=== PATIENT | female | born 1960 | race Caucasian/White ===

== ENCOUNTER → 2017-11-19 15:11 | Outpatient (REF) | payer MEDICARE, SELFPAY ==
[2017-11-19 16:22] LABS: ALT 28 U/L (12-78); AST 21 U/L (15-37); Albumin 3.5 g/dL (3.4-5.0); Alkaline Phosphatase 106 U/L (46-116); Anion Gap 11.9 mmol/L (3-11); BUN 7 mg/dL (7-18); C-Reactive Protein 0.31 mg/dL (0.0-0.3); CO2 25.1 mmol/L (21.0-32.0); CREATININE 0.73 mg/dL (0.55-1.02); Calcium 8.4 mg/dL (8.5-10.1); Chloride 100 mmol/L (98-107); Glucose 71 mg/dL (70-100); Potassium 4.6 mmol/L (3.5-5.1); Sodium 137 mmol/L (136-145); Total Protein 6.7 g/dL (6.4-8.2)
[2017-11-19 16:38] LABS: HGB 7.8 g/dL (12.0-15.5); Mean Corpuscular Hemoglobin 23.3 pg (27.0-33.0); Mean Corpuscular Volume 77.6 fL (80-95); Mean Platelet Volume 9.6 fL (8.0-11.0); Platelet Count 631 x1000/uL (130-400); RBC 3.35 m/cumm (4.00-5.20); RBC Distribution Width 19.6 % (11.7-14.6); White Blood Cell Count 9.09 k/cumm (4.4-10.8)
[2017-11-19 16:41] LABS: Bilirubin, Total < 0.1 mg/dL (0.2-1.0)
== END ==
LOC: LBN 15:11
PROVIDERS: PCP Nurse Practitioner; Visit Provider Family Medicine
DX: M86.462 Chronic osteomyelitis with draining sinus, left tibia and fibula (principal); J44.9 Chronic obstructive pulmonary disease, unspecified; F33.9 Major depressive disorder, recurrent, unspecified; G89.29 Other chronic pain; K21.9 Gastro-esophageal reflux disease without esophagitis
CPT/HCPCS: 80053; 85027; 86140

== ENCOUNTER → 2017-11-24 17:06 | Outpatient (REF) | payer MEDICARE, SELFPAY ==
[2017-11-24 17:39] LABS: Mean Corp. HGB Concentration 28.3 g/dL (32.0-36.0); Mean Corpuscular Hemoglobin 22.3 pg (27.0-33.0); Mean Corpuscular Volume 78.7 fL (80-95); Mean Platelet Volume 9.7 fL (8.0-11.0); Platelet Count 447 x1000/uL (130-400); RBC 3.05 m/cumm (4.00-5.20); RBC Distribution Width 19.2 % (11.7-14.6); White Blood Cell Count 6.29 k/cumm (4.4-10.8)
[2017-11-24 17:46] LABS: HGB 6.8 g/dL (12.0-15.5)
[2017-11-24 17:57] LABS: ALT 18 U/L (12-78); AST 21 U/L (15-37); Albumin 3.1 g/dL (3.4-5.0); Alkaline Phosphatase 98 U/L (46-116); BUN 7 mg/dL (7-18); C-Reactive Protein 0.33 mg/dL (0.0-0.3); Calcium 8.2 mg/dL (8.5-10.1); Chloride 103 mmol/L (98-107); Glucose 80 mg/dL (70-100); Potassium 4.3 mmol/L (3.5-5.1); Sodium 139 mmol/L (136-145); Total Protein 5.9 g/dL (6.4-8.2)
[2017-11-24 18:32] LABS: Bilirubin, Total 0.1 mg/dL (0.2-1.0)
== END ==
LOC: LBN 17:06
PROVIDERS: PCP Nurse Practitioner; Visit Provider Family Medicine
DX: I10 Essential (primary) hypertension (principal); F33.9 Major depressive disorder, recurrent, unspecified; M62.81 Muscle weakness (generalized)
CPT/HCPCS: 80053; 85027; 86140

== ENCOUNTER → 2017-11-28 16:40 | Outpatient (REF) | payer MEDICARE, SELFPAY ==
[2017-11-28 18:50] LABS: Iron 127 ug/dL (50-175); Total Iron Binding Capacity 532 ug/dL (250-450); Transferrin Sat 24 % (15-50)
[2017-11-28 19:16] LABS: Ferritin 28 ng/mL (8-388); Folate 19.2 ng/mL (8.6-20.0); Vitamin B12 423 pg/mL (193-986)
[2017-12-01 10:14] LABS: Homocysteine 17.8 umol/L (4.5-12.4)
[2017-12-01 11:06] LABS: Transferrin 413 mg/dL (201-352)
== END ==
LOC: LBN 16:40
PROVIDERS: PCP Nurse Practitioner; Visit Provider Family Medicine
DX: M86.462 Chronic osteomyelitis with draining sinus, left tibia and fibula (principal); S81.809D Unspecified open wound, unspecified lower leg, subsequent encounter; Z79.2 Long term (current) use of antibiotics; Z95.828 Presence of other vascular implants and grafts; J44.9 Chronic obstructive pulmonary disease, unspecified; F33.9 Major depressive disorder, recurrent, unspecified; G89.29 Other chronic pain
CPT/HCPCS: 83090; 82607; 82728; 82746; 83540; 83550; 84466

== ENCOUNTER → 2017-12-01 10:36 | Outpatient (REF) | payer MEDICARE, SELFPAY ==
[2017-12-01 10:50] LABS: HCT 29.9 % (36.0-46.0); HGB 8.4 g/dL (12.0-15.5); Mean Corp. HGB Concentration 28.1 g/dL (32.0-36.0); Mean Corpuscular Hemoglobin 22.5 pg (27.0-33.0); Mean Corpuscular Volume 79.9 fL (80-95); Mean Platelet Volume 9.6 fL (8.0-11.0); Platelet Count 349 x1000/uL (130-400); RBC 3.74 m/cumm (4.00-5.20); RBC Distribution Width 20.7 % (11.7-14.6); White Blood Cell Count 8.38 k/cumm (4.4-10.8)
[2017-12-01 11:13] LABS: ALT 17 U/L (12-78); AST 16 U/L (15-37); Albumin 3.5 g/dL (3.4-5.0); Alkaline Phosphatase 116 U/L (46-116); Anion Gap 5.2 mmol/L (3-11); BUN 7 mg/dL (7-18); Bilirubin, Total 0.2 mg/dL (0.2-1.0); C-Reactive Protein 0.32 mg/dL (0.0-0.3); CO2 28.8 mmol/L (21.0-32.0); CREATININE 0.57 mg/dL (0.55-1.02); Calcium 8.7 mg/dL (8.5-10.1); Chloride 102 mmol/L (98-107); Glucose 81 mg/dL (70-100); Potassium 4.5 mmol/L (3.5-5.1); Sodium 136 mmol/L (136-145); Total Protein 6.5 g/dL (6.4-8.2)
== END ==
LOC: LBN 10:36
PROVIDERS: PCP Nurse Practitioner; Visit Provider Family Medicine
DX: Z48.89 Encounter for other specified surgical aftercare (principal); S81.809D Unspecified open wound, unspecified lower leg, subsequent encounter; F33.9 Major depressive disorder, recurrent, unspecified; G40.89 Other seizures; J44.9 Chronic obstructive pulmonary disease, unspecified
CPT/HCPCS: 80053; 85027; 86140

== ENCOUNTER → 2017-12-12 02:53 | Outpatient (RCR) | payer MEDICARE, SELFPAY ==
[2017-12-02] MEDS: Normal Saline Flush 10 ML SYR IVP (09:36)
[2017-12-03] MEDS: Normal Saline Flush 10 ML SYR IVP (09:36)
[2017-12-04] MEDS: Normal Saline Flush 10 ML SYR IVP (10:01)
[2017-12-05] MEDS: Normal Saline Flush 10 ML SYR IVP (12:55)
[2017-12-06] MEDS: Normal Saline Flush 10 ML SYR IVP (09:32)
[2017-12-07] MEDS: Normal Saline Flush 10 ML SYR IVP (09:38)
[2017-12-08] MEDS: Normal Saline Flush 10 ML SYR IVP (09:51)
[2017-12-08 10:45] LABS: Abs Immature Grans 0.03 k/cumm (0.0-0.09); Absolute Basophil Count 0.15 k/cumm (0.0-0.2); Absolute Eosinophil Count 0.17 k/cumm (0.0-0.7); Absolute Lymphocyte Count 2.55 k/cumm (1.2-3.4); Absolute Monocyte Count 0.62 k/cumm (0.11-0.7); Basophils % 1.7; HCT 31.2 % (36.0-46.0); HGB 9.1 g/dL (12.0-15.5); Immature Grans % 0.3; Lymphocytes % 29.6; Mean Corp. HGB Concentration 29.2 g/dL (32.0-36.0); Mean Corpuscular Hemoglobin 23.6 pg (27.0-33.0); Monocytes % 7.2; Neutrophils % 59.2; Platelet Count 338 x1000/uL (130-400); RBC 3.85 m/cumm (4.00-5.20); White Blood Cell Count 8.62 k/cumm (4.4-10.8)
[2017-12-08 10:54] LABS: ALT 13 U/L (12-78); AST 19 U/L (15-37); Albumin 3.4 g/dL (3.4-5.0); Alkaline Phosphatase 111 U/L (46-116); Anion Gap 4.3 mmol/L (3-11); BUN 9 mg/dL (7-18); Bilirubin, Total 0.2 mg/dL (0.2-1.0); C-Reactive Protein < 0.05 mg/dL (0.0-0.3); CO2 28.7 mmol/L (21.0-32.0); CREATININE 0.63 mg/dL (0.55-1.02); Calcium 8.5 mg/dL (8.5-10.1); Chloride 101 mmol/L (98-107); Glucose 89 mg/dL (70-100); Potassium 4.7 mmol/L (3.5-5.1); Sodium 134 mmol/L (136-145); Total Protein 6.8 g/dL (6.4-8.2)
[2017-12-09] MEDS: Normal Saline Flush 10 ML SYR IVP (09:56)
[2017-12-10] MEDS: Normal Saline Flush 10 ML SYR IVP (10:06)
[2017-12-11] MEDS: Normal Saline Flush 10 ML SYR IVP (08:48)
[2017-12-12] MEDS: Normal Saline Flush 10 ML SYR IVP (09:57)
== END ==
LOC: INF 12-02 02:15
PROVIDERS: Internal Medicine; PCP Nurse Practitioner; Visit Provider Nurse Practitioner Family
DX: M86.462 Chronic osteomyelitis with draining sinus, left tibia and fibula (principal); Z45.2 Encounter for adjustment and management of vascular access device
CPT/HCPCS: 36592; 96365 ×10; 80053; 85025; 86140

== ENCOUNTER → 2017-12-12 15:09 | Outpatient (REF) | payer MEDICARE, SELFPAY ==
[2017-12-12 21:51] LABS: Abs Immature Grans 0.03 k/cumm (0.0-0.09); Absolute Basophil Count 0.11 k/cumm (0.0-0.2); Absolute Lymphocyte Count 2.57 k/cumm (1.2-3.4); Absolute Monocyte Count 0.54 k/cumm (0.11-0.7); Absolute Neutrophil Count 5.26 k/cumm (1.2-6.7); Basophils % 1.3; Eosinophils % 2.3; HCT 31.7 % (36.0-46.0); HGB 9.3 g/dL (12.0-15.5); Immature Grans % 0.3; Lymphocytes % 29.5; Mean Corp. HGB Concentration 29.3 g/dL (32.0-36.0); Mean Corpuscular Hemoglobin 23.1 pg (27.0-33.0); Mean Corpuscular Volume 78.9 fL (80-95); Monocytes % 6.2; Neutrophils % 60.4; Platelet Count 503 x1000/uL (130-400); RBC 4.02 m/cumm (4.00-5.20); RBC Distribution Width 21.7 % (11.7-14.6); White Blood Cell Count 8.71 k/cumm (4.4-10.8)
[2017-12-12 22:06] LABS: Iron 10 ug/dL (50-175); Total Iron Binding Capacity 541 ug/dL (250-450); Transferrin Sat 2 % (15-50)
[2017-12-12 22:15] LABS: ALT 18 U/L (12-78); AST 23 U/L (15-37); Albumin 3.9 g/dL (3.4-5.0); Alkaline Phosphatase 113 U/L (46-116); Anion Gap 9.5 mmol/L (3-11); BUN 9 mg/dL (7-18); Bilirubin, Total 0.2 mg/dL (0.2-1.0); CO2 27.5 mmol/L (21.0-32.0); CREATININE 0.62 mg/dL (0.55-1.02); Calcium 9.5 mg/dL (8.5-10.1); Chloride 105 mmol/L (98-107); Ferritin 19 ng/mL (8-388); Glucose 94 mg/dL (70-100); Potassium 4.3 mmol/L (3.5-5.1); Sodium 142 mmol/L (136-145); Total Protein 6.9 g/dL (6.4-8.2)
[2017-12-12 22:18] LABS: Anisocytosis 2+; Diff Comment RBC Morph Reviewed; Hypochromasia 1+
== END ==
LOC: NCHCN 15:09
PROVIDERS: PCP Nurse Practitioner; Visit Provider Nurse Practitioner
DX: D64.9 Anemia, unspecified (principal); M86.462 Chronic osteomyelitis with draining sinus, left tibia and fibula
CPT/HCPCS: 80053; 82728; 83540; 83550; 85025

== ENCOUNTER 2017-12-16 09:42 | Emergency (ER) | payer OTHER, SELFPAY ==
[2017-12-16] VITALS (23 sets, daily range): BP systolic 101–125; BP diastolic 61–82; PULSE 74–85; RESP 12–24; TEMP 37; O2SAT 94–96
--- NOTE | 2017-12-16 09:49 | DI.CT_ITS ---
SYMPTOM/DIAGNOSIS: MENTAL STATUS CHANGE CRANIAL CT (WITHOUT CONTRAST): 12/16/[address] was performed. The ventricular system is normal in appearance. There is no evidence of an intracranial mass lesion. There is no evidence of a subdural or epidural hematoma. No focal areas of decreased attenuation are seen. CONCLUSION: Normal noncontrast Cranial CT.
--- NOTE | 2017-12-16 09:52 | W.ED.GENAD ---
Discharge Plan Discharge Details Chief Complaint: AMS/LOC Reason For Visit: CALEX Primary Care Provider: Angelique Lutz ED Provider: Ney Carcamo Home Meds and New Rx's Prescriptions: No Action thiamine mononitrate (vit B1) 100 MG tablet 100 mg PO BID Qty: 100 RF: 3 naloxone [Narcan] 4 MG spray,non-aerosol 4 mg NS PRN Qty: 2 RF: 2 hydroxyzine HCl 50 MG tablet 50 mg PO hs prn RF: 0 tramadol 50 MG tablet 50 mg PO TID RF: 0 docusate sodium 100 MG capsule 200 mg PO BID RF: 0 hydroxyzine HCl 25 MG tablet 25 mg PO BID PRNRF: 0 meloxicam 15 MG tablet 15 mg PO DAILY Qty: 90 RF: 3 pantoprazole 40 MG tablet,delayed release (DR/EC) 40 mg PO DAILY Qty: 90 RF: 3 fluvoxamine 100 MG tablet 100 mg PO HS PRNRF: 0 amitriptyline 100 MG tablet 50 mg PO BID RF: 0 zolpidem [Ambien] 5 MG tablet 5 mg PO HS Qty: 30 RF: 0 gabapentin 300 MG capsule 300 mg PO BID Qty: 90 RF: 0 oxycodone 5 MG tablet 5 mg PO Q8H PRN PRNQty: 21 RF: 0 lamotrigine [Lamictal] 25 MG tablet 100 mg PO BID RF: 0 multivitamin [Multiple Vitamins] 1 TAB tablet 1 tab PO DAILY RF: 0 polyethylene glycol 3350 17 GM powder in packet 17 gm PO BID PRN PRN (Reason: Constipation) RF: 0 aspirin 81 MG tablet,delayed release (DR/EC) 81 mg PO BID RF: 0 acetaminophen [Mapap Extra Strength] 500 MG tablet 500 mg PO Q4H PRN PRNRF: 0 Medical Decision Making [facility] Narrative Medical decision making narrative: 57-year-old female presents from home with altered mental status. 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 She is being treated for MSSA with daily ceftriaxone 2 g in the infusion suite with treatment dates of treatment November 07 through December 19. Screening EKG reveals normal sinus rhythm, rate of 80, narrow QRS, no ST segment elevation. CT scan of the head unremarkable. Chest x-ray without acute focal findings. Laboratory diagnostics reveal white blood cell count of 8, hematocrit 28 with chronic history of anemia, platelets 402. Sodium 135, potassium 4.0, troponin negative. Urinalysis with positive leuk esterase, otherwise unremarkable. Patient given ceftriaxone daily dose in the emergency dept as per her ordered daily dose. Over 2 hours time, patient slowly awakened, states she felt much improved. She subsequently ate at lunchtime meal. Patient does not appear septic, no new infection, no evidence of stroke or trauma. She does have pre-standing chronic anemia and will follow up with primary care for this. She is desirous of returning home. Given that she is improved, do not find that she requires admission. Medical Records Medical records reviewed: Yes I reviewed the patient's medical records. Lab Data Lab results reviewed: Yes I reviewed the patient's lab results. ECG Data Attestation: I personally reviewed and interpreted this ECG (s) as follows: Interpretation: Normal sinus rhythm, rate 80s, no ST segment HPI - General Adult General Mode of arrival: EMS. Date/Time Provider Initiated Documentation: 12/16/17 09:49. Limitations to Documentation: altered mental status. Information obtained by: patient and EMS. History of Present Illness described as moderate, Quality is described as other (Unable to stay), Patient started experiencing this unknown HPI Narrative: Altered mental status: This is a 57-year-old female who presents from home via EMS. She was reportedly found down on her floor at home by home health visit this morning, with last known normal at least 12 hours prior. She is essentially noncontributory to the history but will awake to voice and follow commands. She has been taking antibiotics with left arm PICC line for a left lower extremity infection Related Data Home Medications Medication Instructions Recorded Confirmed lamotrigine [Lamictal] 100 mg PO BID 01/04/17 07/13/17 docusate sodium 200 mg PO BID tab-cap 04/21/17 07/13/17 hydroxyzine HCl 25 mg PO BID PRN 04/21/17 07/13/17 hydroxyzine HCl 50 mg PO hs prn 04/21/17 07/13/17 tramadol 50 mg PO TID tab-cap 04/21/17 07/13/17 amitriptyline 50 mg PO BID 05/20/17 07/13/17 fluvoxamine 100 mg PO HS PRN tab-cap 05/20/17 07/13/17 Previous Rx's Medication Instructions Recorded acetaminophen [Mapap Extra 500 mg PO Q4H PRN PRN tab 07/17/17 Strength] aspirin 81 mg PO BID tabec 07/17/17 multivitamin [Multiple Vitamins] 1 tab PO DAILY tab 07/17/17 polyethylene glycol 3350 17 gm PO BID PRN PRN packet 07/17/17 Allergies Allergy/AdvReac Type Severity Reaction Status Date / Time latex Allergy Intermediate burning Unverified 08/29/17 09:29 Penicillins Allergy Intermediate Hives Unverified 08/29/17 09:29 Review of Systems Review of Systems Unobtainable due to mental status [facility] Family History Mother Alcohol abuse Medical History Alcohol abuse Anxiety and depression COPD (chronic obstructive pulmonary disease) Chronic pain GERD (gastroesophageal reflux disease) Hyperlipidemia Hypertension Social History Smoking/Tobacco Use Status: Former Tobacco Use Surgical History Debridement, Soft Tissue (06/10/15) Fracture, Open Treatment (12/03/16) OPEN REDUCTION INTERNAL FIXATION LEFT DISTAL TIBIA (01/02/16) 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) flap coverage (11/07/17) Exam Const General: disheveled and intoxicated appearing Orientation: alert, oriented to place and confused Limitations: altered mental status [facility] Head: normal to inspection and normocephalic Ears: hearing grossly normal bilaterally and external ears normal Eyes General: appearance normal, both eyes and all related structures Eyelids: eyelids normal Pupils: PERRL EOM: EOM intact bilaterally Neck Neck: normal visual inspection, full ROM, no lymphadenopathy and no meningeal signs Chest Chest: normal inspection of the chest and normal palpation of entire chest wall Resp Effort & Inspection: normal respiratory effort Auscultation: clear to auscultation bilaterally Cardio Rate: regular rate Rhythm: regular rhythm GI Palpation: soft Auscultation: normal bowel sounds Back/Spine/Pelvis Back: no CVA tenderness and No back tenderness Thoracic/Lumbar Spine: thoracic and lumbar spine normal to inspection Skin Other: Left lower leg anterior ankle with healing Neuro General: alert, moves all extremities and confused Cranial Nerves: PERRL and accommodation normal Cognition: abnormal cognition Speech: abnormal speech slurred Sensory Exam: no sensory deficits noted Extrem General: normal capillary refill Left lower extremity: abnormal to inspection (Left lower leg, anterior ankle with healing surgical wound, patient moves all 4 extremities, unable to hold legs up against gravity) Psych Appearance: disheveled Speech and Movement: slurred speech Affect: blunted
--- NOTE | 2017-12-16 10:05 | ED.GENADUL_ITS ---
Discharge Plan Discharge Details Chief Complaint: AMS/LOC Reason For Visit: [facility]EX Primary Care Provider: Angelique Lutz ED Provider: Ney Carcamo Home Meds and New Rx's Prescriptions: No Action thiamine mononitrate (vit B1) 100 MG tablet 100 mg PO BID Qty: 100 RF: 3 naloxone [Narcan] 4 MG spray,non-aerosol 4 mg NS PRN Qty: 2 RF: 2 hydroxyzine HCl 50 MG tablet 50 mg PO hs prn RF: 0 tramadol 50 MG tablet 50 mg PO TID RF: 0 docusate sodium 100 MG capsule 200 mg PO BID RF: 0 hydroxyzine HCl 25 MG tablet 25 mg PO BID PRNRF: 0 meloxicam 15 MG tablet 15 mg PO DAILY Qty: 90 RF: 3 pantoprazole 40 MG tablet,delayed release (DR/EC) 40 mg PO DAILY Qty: 90 RF: 3 fluvoxamine 100 MG tablet 100 mg PO HS PRNRF: 0 amitriptyline 100 MG tablet 50 mg PO BID RF: 0 zolpidem [Ambien] 5 MG tablet 5 mg PO HS Qty: 30 RF: 0 gabapentin 300 MG capsule 300 mg PO BID Qty: 90 RF: 0 oxycodone 5 MG tablet 5 mg PO Q8H PRN PRNQty: 21 RF: 0 lamotrigine [Lamictal] 25 MG tablet 100 mg PO BID RF: 0 multivitamin [Multiple Vitamins] 1 TAB tablet 1 tab PO DAILY RF: 0 polyethylene glycol 3350 17 GM powder in packet 17 gm PO BID PRN PRN (Reason: Constipation) RF: 0 aspirin 81 MG tablet,delayed release (DR/EC) 81 mg PO BID RF: 0 acetaminophen [Mapap Extra Strength] 500 MG tablet 500 mg PO Q4H PRN PRNRF: 0 Medical Decision Making [facility] Narrative Medical decision making narrative: 57-year-old female presents from home with altered mental status. 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 She is being treated for MSSA with daily ceftriaxone 2 g in the infusion suite with treatment dates of treatment November 07 through December 19. Screening EKG reveals normal sinus rhythm, rate of 80, narrow QRS, no ST segment elevation. CT scan of the head unremarkable. Chest x-ray without acute focal findings. Laboratory diagnostics reveal white blood cell count of 8, hematocrit 28 with chronic history of anemia, platelets 402. Sodium 135, potassium 4.0, troponin negative. Urinalysis with positive leuk esterase, otherwise unremarkable. Patient given ceftriaxone daily dose in the emergency dept as per her ordered daily dose. Over 2 hours time, patient slowly awakened, states she felt much improved. She subsequently ate at lunchtime meal. Patient does not appear septic, no new infection, no evidence of stroke or trauma. She does have pre-standing chronic anemia and will follow up with primary care for this. She is desirous of returning home. Given that she is improved, do not find that she requires admission. Medical Records Medical records reviewed: Yes I reviewed the patient's medical records. Lab Data Lab results reviewed: Yes I reviewed the patient's lab results. ECG Data Attestation: I personally reviewed and interpreted this ECG (s) as follows: Interpretation: Normal sinus rhythm, rate 80s, no ST segment HPI - General Adult General Mode of arrival: EMS . Date/Time Provider Initiated Documentation: 12/16/17 09:49 . Limitations to Documentation: altered mental status . Information obtained by: patient and EMS . History of Present Illness described as moderate, Quality is described as other (Unable to stay), Patient started experiencing this unknown HPI Narrative: Altered mental status: This is a 57-year-old female who presents from home via EMS. She was reportedly found down on her floor at home by home health visit this morning, with last known normal at least 12 hours prior. She is essentially noncontributory to the history but will awake to voice and follow commands. She has been taking antibiotics with left arm PICC line for a left lower extremity infection Related Data Home Medications Medication Instructions Recorded Confirmed lamotrigine [Lamictal] 100 mg PO BID 01/04/17 07/13/17 docusate sodium 200 mg PO BID tab-cap 04/21/17 07/13/17 hydroxyzine HCl 25 mg PO BID PRN 04/21/17 07/13/17 hydroxyzine HCl 50 mg PO hs prn 04/21/17 07/13/17 tramadol 50 mg PO TID tab-cap 04/21/17 07/13/17 amitriptyline 50 mg PO BID 05/20/17 07/13/17 fluvoxamine 100 mg PO HS PRN tab-cap 05/20/17 07/13/17 Previous Rx's Medication Instructions Recorded acetaminophen [Mapap Extra 500 mg PO Q4H PRN PRN tab 07/17/17 Strength] aspirin 81 mg PO BID tabec 07/17/17 multivitamin [Multiple Vitamins] 1 tab PO DAILY tab 07/17/17 polyethylene glycol 3350 17 gm PO BID PRN PRN packet 07/17/17 Allergies Allergy/AdvReac Type Severity Reaction Status Date / Time latex Allergy Intermediate burning Unverified 08/29/17 09:29 Penicillins Allergy Intermediate Hives Unverified 08/29/17 09:29 Review of Systems Review of Systems Unobtainable due to mental status [facility] Family History Mother Alcohol abuse Medical History Alcohol abuse Anxiety and depression COPD (chronic obstructive pulmonary disease) Chronic pain GERD (gastroesophageal reflux disease) Hyperlipidemia Hypertension Social History Smoking/Tobacco Use Status: Former Tobacco Use Surgical History Debridement, Soft Tissue (06/10/15) Fracture, Open Treatment (12/03/16) OPEN REDUCTION INTERNAL FIXATION LEFT DISTAL TIBIA (01/02/16) 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) flap coverage (11/07/17) Exam Const General: disheveled and intoxicated appearing Orientation: alert, oriented to place and confused Limitations: altered mental status [facility] Head: normal to inspection and normocephalic Ears: hearing grossly normal bilaterally and external ears normal Eyes General: appearance normal, both eyes and all related structures Eyelids: eyelids normal Pupils: PERRL EOM: EOM intact bilaterally Neck Neck: normal visual inspection, full ROM, no lymphadenopathy and no meningeal signs Chest Chest: normal inspection of the chest and normal palpation of entire chest wall Resp Effort & Inspection: normal respiratory effort Auscultation: clear to auscultation bilaterally Cardio Rate: regular rate Rhythm: regular rhythm GI Palpation: soft Auscultation: normal bowel sounds Back/Spine/Pelvis Back: no CVA tenderness and No back tenderness Thoracic/Lumbar Spine: thoracic and lumbar spine normal to inspection Skin Other: Left lower leg anterior ankle with healing Neuro General: alert, moves all extremities and confused Cranial Nerves: PERRL and accommodation normal Cognition: abnormal cognition Speech: abnormal speech slurred Sensory Exam: no sensory deficits noted Extrem General: normal capillary refill Left lower extremity: abnormal to inspection (Left lower leg, anterior ankle with healing surgical wound, patient moves all 4 extremities, unable to hold legs up against gravity) Psych Appearance: disheveled Speech and Movement: slurred speech Affect: blunted
[2017-12-16 10:15] LABS: Abs Immature Grans 0.02 k/cumm (0.0-0.09); Absolute Basophil Count 0.06 k/cumm (0.0-0.2); Absolute Eosinophil Count 0.18 k/cumm (0.0-0.7); Absolute Lymphocyte Count 1.63 k/cumm (1.2-3.4); Absolute Monocyte Count 0.59 k/cumm (0.11-0.7); Absolute Neutrophil Count 6.18 k/cumm (1.2-6.7); Basophils % 0.7; Eosinophils % 2.1; HCT 28.2 % (36.0-46.0); HGB 8.2 g/dL (12.0-15.5); Immature Grans % 0.2; Lymphocytes % 18.8; Mean Corp. HGB Concentration 29.1 g/dL (32.0-36.0); Mean Platelet Volume 9.1 fL (8.0-11.0); Monocytes % 6.8; Neutrophils % 71.4; Platelet Count 402 x1000/uL (130-400); RBC 3.57 m/cumm (4.00-5.20); RBC Distribution Width 20.7 % (11.7-14.6); White Blood Cell Count 8.66 k/cumm (4.4-10.8)
[2017-12-16 10:21] LABS: Ammonia 20 umol/L (11-32)
--- NOTE | 2017-12-16 10:32 | DI.RAD_ITS ---
SYMPTOM/DIAGNOSIS: MENTAL STATUS CHANGE AP AND LATERAL CHEST: 12/16/17 The heart is at the upper limits of normal in size. There is a left PICC line which lies with its tip in the superior vena cava. There may be small bilateral pleural effusions. There is slight prominence of pulmonary interstitial markings which is nonspecific. No focal consolidation seen. CONCLUSION: Question slight prominence of pulmonary interstitial markings, mild CHF not excluded.
[2017-12-16 10:33] LABS: ALT 15 U/L (12-78); AST 18 U/L (15-37); Albumin 3.4 g/dL (3.4-5.0); Alkaline Phosphatase 105 U/L (46-116); Anion Gap 4.3 mmol/L (3-11); BUN 9 mg/dL (7-18); Bilirubin, Direct 0.05 mg/dL (0.00-0.20); Bilirubin, Total 0.2 mg/dL (0.2-1.0); CO2 28.7 mmol/L (21.0-32.0); CREATININE 0.63 mg/dL (0.55-1.02); Calcium 8.7 mg/dL (8.5-10.1); Chloride 102 mmol/L (98-107); Diff Comment RBC Morph Reviewed; Glucose 90 mg/dL (70-100); Magnesium 1.7 mg/dL (1.8-2.4); Sodium 135 mmol/L (136-145); TSH 1.83 uIU/mL (0.358-3.74); Total Protein 6.4 g/dL (6.4-8.2); Troponin I < 0.02 ng/mL (0.00-0.06)
[2017-12-16 10:34] LABS: Anisocytosis 3+; Basophilic Stippling Present
[2017-12-16 10:35] LABS: Hypochromasia 2+; Poikilocytes 1+; Polychromasia Present
[2017-12-16 11:11] LABS: Bilirubin Negative (Negative); Blood Negative (Negative); Clarity Clear; Glucose Negative (Negative); Ketones Negative (Negative); Leukocyte Esterase Small (Negative); Nitrite Negative (Negative); Urobilinogen 0.2 EU/dL (Up TO 0.2)
[2017-12-16] MEDS: Normal Saline 1,000 ML 125 ML IV (11:17)
[2017-12-16 11:23] LABS: Bacteria Few HPF (Negative); C & S Indicated? No/Sq. Contamination; Casts Negative LPF (Negative); Crystals Negative HPF (Negative); Epithelial Cells Moderate HPF (Negative); Mucus Negative (Negative); Other Cells Moderate Renal (Negative); RBC Negative (0-2)
[2017-12-16 11:25] LABS: *AMPHETAMINES SCREEN URINE Negative (Negative); *BARBITURATES SCREEN URINE Negative (Negative); *BENZODIAZEPINES SCREEN URINE Negative (Negative); Cannabinoids THC Negative (Negative); Cocaine Screen,Urine Negative (Negative); METHADONE URINE SCREEN Negative (Negative); OPIATES URINE SCREEN Negative (Negative)
[2017-12-16 11:26] LABS: Tricyclic Antidepressants POSITIVE (Negative)
[2017-12-16 12:10] LABS: ETHANOL BLOOD < 3.0 mg/dL (<3)
--- NOTE | 2017-12-16 14:52 | PDOC.ERCMPRO ---
Care Management Progress Note 12/16-Joann needs transportation home. Called [facility] and spoke with Gabriela. Gabriela will schedule transportation for Joann to be picked up at the emergency department waiting area and transferred home. Kristy MICHELLE is aware of the above.
[2017-12-18 17:42] LABS: C-Reactive Protein 0.23 mg/dL (0.0-0.3)
== END 2017-12-16 15:00 | disposition home or self-care (01) ==
PROVIDERS: Internal Medicine Infectious Disease; Emergency Provider Emergency Medicine; PCP Nurse Practitioner
DX: R41.82 Altered mental status, unspecified (principal); R47.81 Slurred speech; I10 Essential (primary) hypertension; J44.9 Chronic obstructive pulmonary disease, unspecified; Z87.891 Personal history of nicotine dependence; Z95.9 Presence of cardiac and vascular implant and graft, unspecified
CPT/HCPCS: 36415; 36416; 80053; 80076; 80307; 82962; 93005; 96361; 96374; 99285; 70450; 71046; 80320; 81003; 81015; 82140; 83735; 84443; 84484; 85025; 86140; 93010

== ENCOUNTER 2017-12-19 10:00 | Outpatient (RCR) | payer OTHER, SELFPAY ==
[2017-12-14] MEDS: Normal Saline Flush 10 ML SYR IVP (09:37)
[2017-12-15] MEDS: Normal Saline Flush 10 ML SYR IVP (09:36)
[2017-12-17] MEDS: Normal Saline Flush 10 ML SYR IVP (10:17)
[2017-12-18] MEDS: Normal Saline Flush 10 ML SYR IVP (09:58)
[2017-12-19] MEDS: Normal Saline Flush 10 ML SYR IVP (10:13)
[2017-12-19] MEDS: Bacitracin 1 PACKET (10:45)
== END 2018-01-11 23:59 | disposition home or self-care (01) ==
LOC: INF 10:00
PROVIDERS: PCP Nurse Practitioner; Visit Provider Nurse Practitioner Family
DX: M86.462 Chronic osteomyelitis with draining sinus, left tibia and fibula (principal); Z45.2 Encounter for adjustment and management of vascular access device
CPT/HCPCS: 96365

== ENCOUNTER 2018-01-20 00:50 | Outpatient (CLI) | payer OTHER, SELFPAY ==
--- NOTE | 2018-01-20 11:06 | DI.MAMMO_ITS ---
SYMPTOM/DIAGNOSIS: SCREENING, Z12.31 MAMMOGRAMS: Mammograms were interpreted according to the usual protocol including computer analysis with CAD system, tomosynthesis and C view imaging. Comparison is made with prior examinations. Breast density, B. No masses or microcalcifications are seen. There is nothing to suggest malignancy. IMPRESSION: Negative mammogram. Routine screening is recommended. Category 1. MQSA ASSESSMENT OF FINDINGS: Negative. Category 1. Patient will receive a letter notifying them of these results. BI-RADS category B. There are scattered areas of fibroglandular density.
== END 2018-01-20 01:10 ==
PROVIDERS: Visit Provider Nurse Practitioner
DX: Z12.31 Encounter for screening mammogram for malignant neoplasm of breast (principal)
CPT/HCPCS: 77063; 77067

== ENCOUNTER 2018-05-27 09:23 | Emergency (ER) | payer OTHER, SELFPAY ==
--- NOTE | 2018-05-27 10:09 | NUR.NOTE ---
pt has a history of COPD does not use O2 at home. pt is hear because of SOB following cold
[2018-05-27 10:11] VITALS: BP 143/92; PULSE 75; RESP 18; TEMP 37; O2SAT 96
--- NOTE | 2018-05-27 10:23 | ED.GENADUL_ITS ---
Discharge Plan Disposition Patient Disposition: HOME Condition: Stable Discharge Details Chief Complaint: SOB Clinical Impression: Acute exacerbation of COPD with asthma Primary Care Provider: Jumana Gay ED Provider: Trent Linda Home Meds and New Rx's Prescriptions: New prednisone 20 mg tablet 60 mg PO DAILY 4 Days Qty: 12 RF: 0 doxycycline hyclate 100 mg tablet 100 mg PO BID Qty: 14 RF: 0 Continued thiamine mononitrate (vit B1) 100 MG tablet 100 mg PO BID Qty: 100 RF: 3 Narcan 4 MG spray,non-aerosol 4 mg NS PRN Qty: 2 RF: 2 hydroxyzine HCl 50 MG tablet 50 mg PO hs prn RF: 0 tramadol 50 MG tablet 50 mg PO TID RF: 0 docusate sodium 100 MG capsule 200 mg PO BID RF: 0 hydroxyzine HCl 25 MG tablet 25 mg PO BID PRNRF: 0 meloxicam 15 MG tablet 15 mg PO DAILY Qty: 90 RF: 3 pantoprazole 40 MG tablet,delayed release (DR/EC) 40 mg PO DAILY Qty: 90 RF: 3 fluvoxamine 100 MG tablet 100 mg PO HS PRNRF: 0 amitriptyline 100 MG tablet 50 mg PO BID RF: 0 zolpidem [Ambien] 5 MG tablet 5 mg PO HS Qty: 30 RF: 0 gabapentin 300 MG capsule 300 mg PO BID Qty: 90 RF: 0 oxycodone 5 MG tablet 5 mg PO Q8H PRN PRNQty: 21 RF: 0 lamotrigine [Lamictal] 25 MG tablet 100 mg PO BID RF: 0 multivitamin [Multiple Vitamins] 1 TAB tablet 1 tab PO DAILY RF: 0 polyethylene glycol 3350 17 GM powder in packet 17 gm PO BID PRN PRN (Reason: Constipation) RF: 0 aspirin 81 MG tablet,delayed release (DR/EC) 81 mg PO BID RF: 0 acetaminophen [Mapap Extra Strength] 500 MG tablet 500 mg PO Q4H PRN PRNRF: 0 Discharge Instructions Instructions: COPD (Chronic Obstructive Pulmonary Disease) (ED) Additional Instructions: follow up with your primary care provider within a week if you feel you are having worsening symptoms despite the medications and inhalers return to the emergency department for reevaluation Medical Decision Making 57 yo female with hx of copd, smoker, was on suboxone for prior chronic opiate use from multiple prior surgeries comes in with shortness of breath and increased cough for a few days. Denies chest pain or fevers. HAs wheezing bilaterally at the bases, speaking in full setnences, no leg edema or calf pain. I suspect copd exacerbation, will treat with prednisone, duoneb and steroids and given increased cough will start abx. No evidence of dvt and physical exam findings more consistent with copd so doubt PE at this time. NO chest pain or pressure to suggest acs. No fever and appears well so doubt pna and do not feel xray indicated. She states she has been off suboxone for a few days due to insurance issues and was trying to figure out how to obtain this, I offered care management to help her but also discussed just coming off suboxone given she is already a few days into this and she is choosing to try and come off suboxone at this time pt remains stable, has no complaints now and is speaking in full setnecnes and has clear lungs, will d/c with abx and steroids, advised f/u with pcp and return precautions given Differential Diagnosis copd, pna, uri HPI General Mode of arrival: ambulatory . Date/Time Provider Initiated Documentation: 05/27/18 09:33 . Limitations to Documentation: no limitations . Information obtained by: patient . History of Present Illness 57 year old F presents to the emergency department with the chief complaint of shortness of breath and cough, described as moderate, with intensity rated at 4. Patient started experiencing this day(s) (3) and it has been constant. No relieving factors improve symptom(s), No exacerbating factors reported . Related Data Home Medications Medication Instructions Recorded Confirmed thiamine mononitrate (vit B1) 100 mg PO BID #100 tab 04/02/16 05/27/18 Narcan 4 mg NS PRN #2 spray 10/10/16 05/27/18 lamotrigine [Lamictal] 100 mg PO BID 01/04/17 05/27/18 docusate sodium 200 mg PO BID tab-cap 04/21/17 05/27/18 hydroxyzine HCl 25 mg PO BID PRN 04/21/17 05/27/18 hydroxyzine HCl 50 mg PO hs prn 04/21/17 05/27/18 meloxicam 15 mg PO DAILY #90 tab-cap 04/21/17 05/27/18 pantoprazole 40 mg PO DAILY #90 tab-cap 04/21/17 05/27/18 tramadol 50 mg PO TID tab-cap 04/21/17 05/27/18 amitriptyline 50 mg PO BID 05/20/17 05/27/18 fluvoxamine 100 mg PO HS PRN tab-cap 05/20/17 05/27/18 acetaminophen [Mapap Extra 500 mg PO Q4H PRN PRN tab 07/17/17 05/27/18 Strength] aspirin 81 mg PO BID tabec 07/17/17 05/27/18 multivitamin [Multiple Vitamins] 1 tab PO DAILY tab 07/17/17 05/27/18 polyethylene glycol 3350 17 gm PO BID PRN PRN packet 07/17/17 05/27/18 zolpidem [Ambien] 5 mg PO HS #30 tab-cap 07/19/17 05/27/18 gabapentin 300 mg PO BID #90 cap 08/29/17 05/27/18 oxycodone 5 mg PO Q8H PRN PRN #21 tab 11/03/17 05/27/18 doxycycline hyclate 100 mg PO BID #14 tab 05/27/18 prednisone 60 mg PO DAILY 4 Days #12 tab 05/27/18 Previous Rx's Medication Instructions Recorded meloxicam 15 mg PO DAILY #90 tab-cap 04/21/17 pantoprazole 40 mg PO DAILY #90 tab-cap 04/21/17 acetaminophen [Mapap Extra 500 mg PO Q4H PRN PRN tab 07/17/17 Strength] aspirin 81 mg PO BID tabec 07/17/17 multivitamin [Multiple Vitamins] 1 tab PO DAILY tab 07/17/17 polyethylene glycol 3350 17 gm PO BID PRN PRN packet 07/17/17 zolpidem [Ambien] 5 mg PO HS #30 tab-cap 07/19/17 gabapentin 300 mg PO BID #90 cap 08/29/17 doxycycline hyclate 100 mg PO BID #14 tab 05/27/18 prednisone 60 mg PO DAILY 4 Days #12 tab 05/27/18 Allergies Allergy/AdvReac Type Severity Reaction Status Date / Time latex Allergy Intermediate burning Unverified 05/27/18 10:13 Penicillins Allergy Intermediate Hives Unverified 05/27/18 10:13 General Stated Complaint: SOB JUAN DANIEL: 4 Review of Systems Review of Systems All systems reviewed & are unremarkable except as noted in HPI and below Constitutional Denies fever(s) and Denies weakness ENT Denies change in voice Cardiovascular Denies chest pain Gastrointestinal Denies abdominal pain, Denies nausea and Denies vomiting Genitourinary Denies dysuria Integumentary/Breasts Denies rash Neurologic Denies weakness [facility] Medical History Alcohol abuse Anxiety and depression COPD (chronic obstructive pulmonary disease) Chronic pain GERD (gastroesophageal reflux disease) Hyperlipidemia Hypertension Surgical History Debridement, Soft Tissue (06/10/15) Fracture, Open Treatment (12/03/16) OPEN REDUCTION INTERNAL FIXATION LEFT DISTAL TIBIA (01/02/16) 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) flap coverage (11/07/17) Social History Smoking and Tabacco status: Current every day Exam Const General: no acute distress Orientation: alert [facility] Head: normal to inspection Ears: external ears normal General nose exam: external nose normal Mouth: moist mucous membranes Eyes General: appearance normal, both eyes and all related structures Neck Neck: normal visual inspection Resp Effort & Inspection: normal respiratory effort and able to speak in complete sentences Cardio Rate: regular rate Skin General skin exam: no rashes or lesions noted Neuro General: alert and oriented x3 Extrem General: normal to inspection Psych Mental Status: mental status grossly normal Course Vital Signs Temperature 37.0 C 05/27/18 10:11 Pulse 75 05/27/18 10:11 Respiratory Rate 18 05/27/18 10:11 Blood Pressure 143/92 H 05/27/18 10:11 Pulse Oximetry 96 05/27/18 10:11 Temperature 37.0 C 05/27/18 10:11 Temperature Source Skin 05/27/18 10:11 Pulse 75 05/27/18 10:11 Respiratory Rate 18 05/27/18 10:11 Blood Pressure 143/92 H 05/27/18 10:11 Blood Pressure Position Sitting 05/27/18 10:11 Pulse Oximetry 96 05/27/18 10:11 Oxygen Delivery Method Room Air 05/27/18 10:11 Oxygen Flow Rate 0 05/27/18 10:11 Pain Level 0 05/27/18 10:11
[2018-05-27] MEDS: Albuterol/Ipratropium 3 ML UPD VIAL UPD (11:03)
[2018-05-27] MEDS: Doxycycline Hyclate 100 MG CAP PO (11:03)
[2018-05-27] MEDS: Ketorolac 30 MG/ML VIAL IM (11:03)
[2018-05-27 11:04] VITALS: RESP 16
[2018-05-27] MEDS: predniSONE 20 MG TAB 60 MG PO (11:04)
[2018-05-27 11:46] VITALS: BP 143/92; PULSE 75; RESP 16; TEMP 37; O2SAT 96
== END 2018-05-27 11:24 | disposition home or self-care (01) ==
LOC: ER 11:03
PROVIDERS: Emergency Provider Emergency Medicine; PCP Family Medicine
DX: J44.1 Chronic obstructive pulmonary disease with (acute) exacerbation (principal); F17.210 Nicotine dependence, cigarettes, uncomplicated
CPT/HCPCS: 94640; 96372; 99284; J1885; J7512; J7620

== ENCOUNTER 2018-06-25 03:25 | Emergency (ER) | payer OTHER, SELFPAY ==
[2018-06-25 03:25] VITALS: BP 146/86; PULSE 93; RESP 22; TEMP 37.1; O2SAT 94
--- NOTE | 2018-06-25 03:37 | ED.GENADUL_ITS ---
Discharge Plan Disposition Patient Disposition: HOME Condition: Stable Discharge Details Chief Complaint: ETOHWithdr Clinical Impression: Alcohol abuse Reason For Visit: PRETTY Primary Care Provider: Jumana Gay ED Provider: Trent Linda Farnsworth Meds and New Rx's Prescriptions: New chlordiazepoxide HCl 25 mg capsule See Rx Instructions .ROUTE .COMPLEX Qty: 30 RF: 0 ondansetron 4 mg tablet,disintegrating 4 mg PO QID PRN (Reason: nausea and vomiting) Qty: 30 RF: 0 No Action thiamine mononitrate (vit B1) 100 MG tablet 100 mg PO BID Qty: 100 RF: 3 Narcan 4 MG spray,non-aerosol 4 mg NS PRN Qty: 2 RF: 2 hydroxyzine HCl 50 MG tablet 50 mg PO hs prn RF: 0 tramadol 50 MG tablet 50 mg PO TID RF: 0 docusate sodium 100 MG capsule 200 mg PO BID RF: 0 hydroxyzine HCl 25 MG tablet 25 mg PO BID PRNRF: 0 meloxicam 15 MG tablet 15 mg PO DAILY Qty: 90 RF: 3 pantoprazole 40 MG tablet,delayed release (DR/EC) 40 mg PO DAILY Qty: 90 RF: 3 fluvoxamine 100 MG tablet 100 mg PO HS PRNRF: 0 amitriptyline 100 MG tablet 50 mg PO BID RF: 0 zolpidem [Ambien] 5 MG tablet 5 mg PO HS Qty: 30 RF: 0 gabapentin 300 MG capsule 300 mg PO BID Qty: 90 RF: 0 oxycodone 5 MG tablet 5 mg PO Q8H PRN PRNQty: 21 RF: 0 doxycycline hyclate 100 mg tablet 100 mg PO BID Qty: 14 RF: 0 lamotrigine [Lamictal] 25 MG tablet 100 mg PO BID RF: 0 multivitamin [Multiple Vitamins] 1 TAB tablet 1 tab PO DAILY RF: 0 polyethylene glycol 3350 17 GM powder in packet 17 gm PO BID PRN PRN (Reason: Constipation) RF: 0 aspirin 81 MG tablet,delayed release (DR/EC) 81 mg PO BID RF: 0 acetaminophen [Mapap Extra Strength] 500 MG tablet 500 mg PO Q4H PRN PRNRF: 0 Discharge Instructions Additional Instructions: Call the centers on the sheet that was provided You cannot drink alcohol while taking librium (chlordiazepoxide) If you develop high fevers or persistent vomit return to the emergency department Medical Decision Making 57 yo female who states she drinks over 8 alcoholic beverages a day for years comes in with cc of wanting to go to a detox center. She last had a drink 5 hours ago. she arrives without tremors, tachycardia, and is caox4 and is clinically sober on exam. She has no acute complaints on my exam. She denies hallucinations, si, hi. I do not feel she requires any workup at this time given her only request is detox from alcohol. She was advised she needs to call centers herself to get into a detox center which she states she is willing to do but would like some medication to bridge her. I discussed librium and risks if she drinks while taking this and she agrees that she will not take this mdicine if she drinks alcohol. Drug addiction center numbers were given to the patient. Differential Diagnosis alcohol withdrawal, alcohol abuse HPI General Mode of arrival: EMS . Date/Time Provider Initiated Documentation: 06/25/18 03:31 . Limitations to Documentation: no limitations . Information obtained by: patient . History of Present Illness 57 year old F presents to the emergency department with the chief complaint of wants help with detox from alcohol, Patient started experiencing this hour(s) (4) and it has been constant. No relieving factors improve symptom(s), No exacerbating factors reported . Patient notes no other symptoms.. Patient did receive the following treatments prior to arrival, none Related Data Home Medications Medication Instructions Recorded Confirmed thiamine mononitrate (vit B1) 100 mg PO BID #100 tab 04/02/16 06/25/18 Narcan 4 mg NS PRN #2 spray 10/10/16 05/27/18 lamotrigine [Lamictal] 100 mg PO BID 01/04/17 05/27/18 docusate sodium 200 mg PO BID tab-cap 04/21/17 05/27/18 hydroxyzine HCl 25 mg PO BID PRN 04/21/17 05/27/18 hydroxyzine HCl 50 mg PO hs prn 04/21/17 06/25/18 meloxicam 15 mg PO DAILY #90 tab-cap 04/21/17 06/25/18 pantoprazole 40 mg PO DAILY #90 tab-cap 04/21/17 06/25/18 tramadol 50 mg PO TID tab-cap 04/21/17 06/25/18 amitriptyline 50 mg PO BID 05/20/17 05/27/18 fluvoxamine 100 mg PO HS PRN tab-cap 05/20/17 05/27/18 acetaminophen [Mapap Extra 500 mg PO Q4H PRN PRN tab 07/17/17 05/27/18 Strength] aspirin 81 mg PO BID tabec 07/17/17 05/27/18 multivitamin [Multiple Vitamins] 1 tab PO DAILY tab 07/17/17 05/27/18 polyethylene glycol 3350 17 gm PO BID PRN PRN packet 07/17/17 05/27/18 zolpidem [Ambien] 5 mg PO HS #30 tab-cap 07/19/17 06/25/18 gabapentin 300 mg PO BID #90 cap 08/29/17 05/27/18 oxycodone 5 mg PO Q8H PRN PRN #21 tab 11/03/17 06/25/18 doxycycline hyclate 100 mg PO BID #14 tab 05/27/18 chlordiazepoxide HCl See Rx Instructions .ROUTE 06/25/18 .COMPLEX #30 cap ondansetron 4 mg PO QID PRN #30 tab 06/25/18 Previous Rx's Medication Instructions Recorded meloxicam 15 mg PO DAILY #90 tab-cap 04/21/17 pantoprazole 40 mg PO DAILY #90 tab-cap 04/21/17 acetaminophen [Mapap Extra 500 mg PO Q4H PRN PRN tab 07/17/17 Strength] aspirin 81 mg PO BID tabec 07/17/17 multivitamin [Multiple Vitamins] 1 tab PO DAILY tab 07/17/17 polyethylene glycol 3350 17 gm PO BID PRN PRN packet 07/17/17 zolpidem [Ambien] 5 mg PO HS #30 tab-cap 07/19/17 gabapentin 300 mg PO BID #90 cap 08/29/17 doxycycline hyclate 100 mg PO BID #14 tab 05/27/18 chlordiazepoxide HCl See Rx Instructions .ROUTE 06/25/18 .COMPLEX #30 cap ondansetron 4 mg PO QID PRN #30 tab 06/25/18 Allergies Allergy/AdvReac Type Severity Reaction Status Date / Time latex Allergy Intermediate burning Unverified 06/25/18 03:36 Penicillins Allergy Intermediate Hives Unverified 06/25/18 03:36 General JUAN DANIEL: 4 Review of Systems Review of Systems All systems reviewed & are unremarkable except as noted in HPI and below Constitutional Denies chills, Denies fever(s) and Denies weakness ENT Denies change in voice Cardiovascular Denies chest pain and Denies dyspnea Respiratory Denies cough and Denies dyspnea Gastrointestinal Denies abdominal pain, Denies nausea and Denies vomiting Genitourinary Denies dysuria Musculoskeletal Denies joint swelling Integumentary/Breasts Denies rash Neurologic Denies weakness Endocrine Denies heat intolerance REPLACED BY [facility] Social History Smoking and Tabacco status: Current every day Exam Const General: no acute distress Orientation: alert HENMT Head: normal to inspection Ears: external ears normal General nose exam: external nose normal Mouth: moist mucous membranes Eyes General: appearance normal, both eyes and all related structures Neck Neck: normal visual inspection Resp Effort & Inspection: normal respiratory effort and able to speak in complete sentences Cardio Rate: regular rate Skin General skin exam: no rashes or lesions noted Neuro General: alert and oriented x3 Extrem General: normal to inspection Psych Mental Status: mental status grossly normal
[2018-06-25] MEDS: Ondansetron O.D.T. 4 MG TABEF PO (03:46)
[2018-06-25] MEDS: chlordiazePOXIDE 25 MG CAP 50 MG PO (03:46)
[2018-06-25 03:53] VITALS: BP 140/85; PULSE 88; RESP 15; O2SAT 95
== END 2018-06-25 03:53 | disposition home or self-care (01) ==
PROVIDERS: Emergency Provider Emergency Medicine; PCP Family Medicine
DX: F10.10 Alcohol abuse, uncomplicated (principal); F17.210 Nicotine dependence, cigarettes, uncomplicated
CPT/HCPCS: 99283

== ENCOUNTER 2018-07-30 08:46 | Outpatient (REF) | payer OTHER, SELFPAY ==
[2018-07-30 12:44] LABS: Mean Corp. HGB Concentration 31.8 g/dL (32.0-36.0); Mean Corpuscular Hemoglobin 30.3 pg (27.0-33.0); Mean Corpuscular Volume 95.2 fL (80-95); Mean Platelet Volume 9.6 fL (8.0-11.0); Platelet Count 263 x1000/uL (130-400); RBC 4.62 m/cumm (4.00-5.20); RBC Distribution Width 14.4 % (11.7-14.6); White Blood Cell Count 12.78 k/cumm (4.4-10.8)
[2018-07-30 13:12] LABS: ALT 18 U/L (12-78); AST 19 U/L (15-37); Albumin 3.5 g/dL (3.4-5.0); Alkaline Phosphatase 117 U/L (46-116); Anion Gap 8.2 mmol/L (3-11); BUN 7 mg/dL (7-18); Bilirubin, Total 0.3 mg/dL (0.2-1.0); CO2 27.8 mmol/L (21.0-32.0); CREATININE 0.75 mg/dL (0.55-1.02); Calcium 8.9 mg/dL (8.5-10.1); Chloride 95 mmol/L (98-107); Cholesterol 218 mg/dL (50-200); Glucose 112 mg/dL (70-100); HDL Cholesterol 86 mg/dL (40-60); LDL CHOLESTEROL 104 mg/dL (<100); Potassium 4.6 mmol/L (3.5-5.1); Sodium 131 mmol/L (136-145); Total Protein 6.5 g/dL (6.4-8.2); Triglyceride 59 mg/dL (30-150)
[2018-07-30 13:26] LABS: Bilirubin, Direct 0.09 mg/dL (0.00-0.20)
== END 2018-07-30 09:06 ==
LOC: NCHCN 08:46
PROVIDERS: PCP Family Medicine; Visit Provider Family Medicine
DX: F10.10 Alcohol abuse, uncomplicated (principal); R79.89 Other specified abnormal findings of blood chemistry; K21.9 Gastro-esophageal reflux disease without esophagitis; D64.9 Anemia, unspecified; M79.7 Fibromyalgia
CPT/HCPCS: 80053; 80061; 80076; 83721; 85027

== ENCOUNTER 2018-08-07 12:57 | Outpatient (REF) | payer OTHER, SELFPAY ==
--- NOTE | 2018-08-07 12:00 | PAPFT_PTH ---
PATIENT: DORA BOSTON LOC: [facility] U#:[id number] AGE/SX: 57/F ROOM: RE08/07/[address]: Jumana Gay : 1960 BED: DIS: 08/07/2018 SPEC #: [id number] RECD: 08/10/18 12:56 STATUS: SHENG REAngie #: [id number] WILLIAM: 08/07/18 12:[address]: Jumana Gay DEPT: [facility] Cytology RECD BY: Dora Martinez Tissues: 1 - CX/ENDOCX FOR PAP SMEARS Procedures: PAP THIN PREP/UVM Screening HPV DNA PROBE Comments: [id number]
== END 2018-08-07 13:17 ==
LOC: NCHCN 12:57
PROVIDERS: PCP Family Medicine; Visit Provider Family Medicine
DX: Z12.4 Encounter for screening for malignant neoplasm of cervix (principal); Z11.51 Encounter for screening for human papillomavirus (HPV); Z01.419 Encounter for gynecological examination (general) (routine) without abnormal findings
CPT/HCPCS: 88142; 87624

== ENCOUNTER 2018-09-23 07:31 | Emergency (ER) | payer OTHER, SELFPAY ==
[2018-09-23 07:37] VITALS: BP 104/79; PULSE 64; RESP 18; TEMP 36.6; O2SAT 98
--- NOTE | 2018-09-23 08:06 | DI.RAD_ITS ---
SYMPTOM/DIAGNOSIS: COUGH, COPD, FELL, PAIN PA AND LATERAL CHEST: Comparison is made with 12/16/17. Heart size and pulmonary vasculature are within normal limits. No focal infiltrates, effusions or pneumothoraces are identified. There is again seen an old right clavicular fracture. Sideplate and screws are seen involving the proximal humeri bilaterally. There is an ovoid density in the overlying left lower mid lung. This may represent a summation of shadows or an old rib injury. Pulmonary nodule cannot be entirely excluded. Non emergent CT scan of the chest should be considered for further evaluation. IMPRESSION: 1. No acute pulmonary process. 2. Question of a left basilar rounded opacity. This may represent a pulmonary nodule, summation shadow, rib lesion or possibly nipple shadow. A repeat view of the chest with nipple markers is recommended. If the finding persists, a follow up CT scan may be considered. LEFT FEMUR: Four views. Comparison is made with 08/01/17. There is again seen an intramedullary mary transfixing the fracture involving the proximal left femur. Portions of the fracture are still visualized and well corticated suggesting non union. No acute fracture or dislocation is present. IMPRESSION: No acute abnormality. The findings were called to the ER on the date of the examination.
--- NOTE | 2018-09-23 08:09 | ED.GENADUL_ITS ---
Discharge Plan Disposition Patient Disposition: HOME Condition: Fair Discharge Details Chief Complaint: GenMedical Clinical Impression: COPD (chronic obstructive pulmonary disease), Acute exacerbation of chronic obstructive pulmonary disease (COPD), Multiple contusions Primary Care Provider: Jumana Gay ED Provider: Elodia Sears Home Meds and New Rx's Prescriptions: New lidocaine [Lidoderm] 5 % adhesive patch,medicated 2 patch TP DAILY PRN (Reason: pain) Qty: 15 RF: 0 prednisone 20 mg tablet 40 mg PO DAILY Qty: 8 RF: 0 albuterol sulfate 90 mcg/actuation HFA aerosol inhaler 1 puff IH Q6H PRN (Reason: shortness of breath or wheezing) Qty: 6.7 RF: 0 Continued thiamine mononitrate (vit B1) 100 MG tablet 100 mg PO BID Qty: 100 RF: 3 Narcan 4 MG spray,non-aerosol 4 mg NS PRN Qty: 2 RF: 2 docusate sodium 100 MG capsule 200 mg PO BID RF: 0 pantoprazole 40 MG tablet,delayed release (DR/EC) 40 mg PO DAILY Qty: 90 RF: 3 ondansetron 4 mg tablet,disintegrating 4 mg PO QID PRN (Reason: nausea and vomiting) Qty: 30 RF: 0 polyethylene glycol 3350 17 GM powder in packet 17 gm PO BID PRN PRN (Reason: Constipation) RF: 0 acetaminophen [Mapap Extra Strength] 500 MG tablet 500 mg PO Q4H PRN PRNRF: 0 buprenorphine-naloxone [Suboxone] 8-2 mg Film 2 film SUBLINGUAL DAILY RF: 0 gabapentin 300 MG capsule 1,200 mg PO QID RF: 0 Discharge Instructions Instructions: COPD (Chronic Obstructive Pulmonary Disease) (ED), Contusion in Adults (ED) Additional Instructions: Encourage hydration. Stop smoking. Please take steroids as prescribed to help with COPD exacerbation. Please continue with your inhalers previously prescribed. You need to follow-up with your primary care regarding her COPD, please call them today to schedule appointment within the next week Regarding her fall, your x-rays were without findings to suggest fracture today. Encouraged please encourage rest, ice, elevation. May continue with Tylenol and ibuprofen as needed for discomfort. If you develop fever/chills, difficulty breathing, increased shortness of breath, inability stay hydrated or the new/worsening symptoms please seek care urgently once again. Referrals: Jumana Gay [Primary Care Provider] - Discharge Data Discharge Date/Time-TO BE ENTERED AT DEPARTURE: 09/23/18 10:19 Medical Decision Making Patient 57-year-old female presents today with primary concern of a fall. On exam, she is tender over the left greater trochanter. She is indicating the length of the femur is area of discomfort but minimal pain no pain was elicited in this area. No evidence of acute trauma. She does have multiple postsurgical changes on the left lower extremity. She is full range of motion of the hip. Knee is normal exam of the patient does also endorse chronic pain in the knee. This is unchanged from the fall today. Patient has open chronic wound in the left lower extremity. It does not appear acutely infected. Has granulation tissue, she reports that this is from surgery after osteomyelitis. Patient has had multiple surgeries to his lower extremity, will obtain imaging to evaluate for any possible bony abnormality. Patient is also endorsing chronic cough for the past few months. She is an active smoker with history of COPD. On exam, diffuse expiratory wheezes are noted. She reports that she has been using her albuterol inhaler which is almost empty. Plan to give a nebulizer. Will obtain chest x-ray as well. Vital signs within normal limits. Images reviewed by myself as well as radiologist. Radiologist did request a second AP view with nipple markers. When I went to reevaluate the patient discussed this, she is also endorsing left humeral pain. She has good range of motion, pain over the midshaft humerus with no notable swelling or ecchymosis. Will obtain images of this. Images of humerus without acute abnormality per radiology. Discussed these findings with the patient. Encourage smoking cessation. Advised that the wheezing and her persistent cough is likely secondary to COPD exacerbation. Patient I discussed treatment options. She is requesting a refill of her inhaler. We will prescribe a burst of steroids. Advised that she needs follow-up with primary care within the next week for reevaluation and to discuss her chronic symptoms. Encouraged hydration. We discussed new/worsening symptoms when to seek care urgently once again. I encouraged rice for her contusions. All of her questions and concerns were addressed and she is in agreement with this plan HPI General Mode of arrival: ambulatory . Date/Time Provider Initiated Documentation: 09/23/18 07:32 . Limitations to Documentation: no limitations . Information obtained by: patient and RN notes reviewed . HPI Narrative: Patient is a 49-year-old female presenting today with multiple complaints. Her primary concern at this time is injury from mechanical pulse fall. She reports that this morning she is coming out of her house and stepped on a broken stair coming down from her deck that gave way and she fell forward. States that she fell landing on her left hip on the grass. States that the fall was fairly light. Patient has had history of plate and mary placement in the left femur and she is concerned about this. States she has chronic pain in the left femur, particularly the distal aspect along the anterior knee. Patient has been ambulating with a cane at baseline. Is able to get up and walk with cane immediately after the incident. Patient also reports that she has had a cough for the past several months. She has not discussed this with her primary care. Reports is largely nonproductive. Patient is an active smoker with a history of COPD. She denies feeling short of breath. No chest pain, no acute change in this. Related Data Home Medications Medication Instructions Recorded Confirmed thiamine mononitrate (vit B1) 100 mg PO BID #100 tab 04/02/16 09/23/18 Narcan 4 mg NS PRN #2 spray 10/10/16 09/23/18 docusate sodium 200 mg PO BID tab-cap 04/21/17 09/23/18 pantoprazole 40 mg PO DAILY #90 tab-cap 04/21/17 09/23/18 acetaminophen [Mapap Extra 500 mg PO Q4H PRN PRN tab 07/17/17 09/23/18 Strength] polyethylene glycol 3350 17 gm PO BID PRN PRN packet 07/17/17 09/23/18 ondansetron 4 mg PO QID PRN #30 tab 06/25/18 09/23/18 albuterol sulfate 1 puff IH Q6H PRN #6.7 gm 09/23/18 buprenorphine-naloxone [Suboxone] 2 film SUBLINGUAL DAILY 09/23/18 09/23/18 gabapentin 1,200 mg PO QID 09/23/18 09/23/18 lidocaine [Lidoderm] 2 patch TP DAILY PRN #15 each 09/23/18 prednisone 40 mg PO DAILY #8 tab 09/23/18 Previous Rx's Medication Instructions Recorded pantoprazole 40 mg PO DAILY #90 tab-cap 04/21/17 acetaminophen [Mapap Extra 500 mg PO Q4H PRN PRN tab 07/17/17 Strength] polyethylene glycol 3350 17 gm PO BID PRN PRN packet 07/17/17 ondansetron 4 mg PO QID PRN #30 tab 06/25/18 albuterol sulfate 1 puff IH Q6H PRN #6.7 gm 09/23/18 lidocaine [Lidoderm] 2 patch TP DAILY PRN #15 each 09/23/18 prednisone 40 mg PO DAILY #8 tab 09/23/18 Allergies Allergy/AdvReac Type Severity Reaction Status Date / Time latex Allergy Intermediate burning Unverified 09/23/18 07:42 Penicillins Allergy Intermediate Hives Unverified 09/23/18 07:42 General Stated Complaint: GenMedical JUAN DANIEL: 3 Review of Systems Constitutional Reports as per HPI, Denies chills, Reports fatigue (states she has had fatigue for the past several months), Denies fever(s), Denies headache(s) and Denies weakness Eyes Reports as per HPI, Denies blurry vision, Denies change in vision and Denies loss of vision ENT Denies abnormal hearing and Denies headache(s) Cardiovascular Reports as per HPI, Denies chest pain and Denies dyspnea Respiratory Reports as per HPI, Reports cough, Denies pain on inspiration, Denies pain with cough, Denies dyspnea and Reports wheezing Gastrointestinal Reports as per HPI, Denies abdominal pain, Denies nausea and Denies vomiting Genitourinary Reports as per HPI and Denies urinary incontinence Musculoskeletal Reports as per HPI Integumentary/Breasts Reports as per HPI and Reports wounds (chronic wound LLE) Neurologic Reports as per HPI, Denies abnormal hearing, Denies abnormal movements, Denies abnormal speech, Denies headache(s), Denies lack of coordination, Denies focal weakness, Denies loss of vision, Denies seizure-like activity, Denies paresthesias and Denies weakness Endocrine Reports fatigue (states she has had fatigue for the past several months) Allergic/Immunologic Reports wheezing PFSH Medical History Alcohol abuse Anxiety and depression COPD (chronic obstructive pulmonary disease) Chronic pain GERD (gastroesophageal reflux disease) Hyperlipidemia Hypertension Surgical History Debridement, Soft Tissue (06/10/15) Fracture, Open Treatment (12/03/16) OPEN REDUCTION INTERNAL FIXATION LEFT DISTAL TIBIA (01/02/16) 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) flap coverage (11/07/17) Social History Smoking/Tobacco Use Status: Current every day Drug use: Never Do you feel safe at home: Yes Do you feel safe in your relationship?: Yes Exam Const General: cooperative, healthy appearing, comfortable, no acute distress, well developed and well groomed Nutritional Appearance: average body habitus and well nourished Orientation: alert, awake and oriented x3 HENMT Head: normal to inspection, no palpable skull fracture, normocephalic and atraumatic Ears: hearing grossly normal bilaterally General nose exam: external nose normal Mouth: oral mucosae normal, lip normal, tongue normal and No moist mucous membranes abnormal (patient appears dry) Throat: posterior oropharynx normal Eyes General: appearance normal, both eyes and all related structures Visual Dodge: normal visual dodge by confrontation Alignment and Position: alignment normal Periorbital: periorbital findings normal Eyelids: eyelids normal Conjunctivae: conjunctivae normal Pupils: PERRL EOM: EOM intact bilaterally Neck Neck: normal visual inspection, full ROM, no lymphadenopathy, no meningeal signs, trachea midline and supple Chest Chest: normal inspection of the chest, normal palpation of entire chest wall, no crepitus and no localized rib tenderness Resp Effort & Inspection: normal respiratory effort, able to speak in complete sentences and no respiratory distress Auscultation: lung sounds not diminished, no rales, no rhonchi and wheezes (diffuse wheezing) expiratory wheezes Cardio Rate: regular rate Rhythm: regular rhythm Heart Sounds: S1 normal and S2 normal GI Inspection: normal to inspection, no abdominal wall ecchymosis, no edema and non-distended Palpation: soft, no hepatosplenomegaly, not firm, no guarding, no pulsatile masses, not rigid and nontender Auscultation: normal bowel sounds Back/Spine/Pelvis Cervical Spine: normal cervical lordosis and cervical ROM normal Thoracic/Lumbar Spine: thoracic and lumbar spine normal to inspection, thoraco- lumbar ROM normal, No thoraco-lumbar ROM limited, No thoraco-lumbar spasm and No thoracic spinal tenderness Pelvis: no pain with anterior-posterior compression and no pain with lateral compression Skin Wounds: wounds noted (4cm healing wound anterior distal tibia) Neuro General: alert, awake, oriented x3, gait normal, tone normal and moves all extremities Cranial Nerves: CN's II-XI intact bilaterally Cognition: normal cognition Speech: speech normal Gait: antalgic (ambulating with cane, she reports at baseline) Motor: muscle tone normal throughout, strength 5/5 throughout, no pronator drift, no movement abnormalities noted and no fasciculations Sensory Exam: no sensory deficits noted (no saddle paresthesias) Extrem General: full ROM, normal capillary refill, no pedal edema and no calf tenderness Left lower extremity: normal capillary refill, no joint enlargement, hip/thigh Details: normal to inspection (sites of skin grafts noted, well healed), tenderness Location: of the hip Location: laterally and over the great trochanter and of the mid upper leg Location: anteriorly and normal ROM; no swelling, no abrasions, no lacerations, no ecchymosis, no crepitus and no unusual warmth, knee Details: normal to inspection, normal ROM and knee ligament exam normal Details: anterior drawer test normal, posterior drawer test normal, valgus stress test normal and varus stress test normal; no tenderness and no swelling and lower leg Details: no edema and other (chronic wound anterior distal 1/3, does not appear infected); no localized swelling and no palpable cords; no edema Psych Appearance: grossly normal and well kempt Mental Status: mental status grossly normal Speech and Movement: speech and movement normal Course Vital Signs Temperature 36.6 C 09/23/18 07:37 Pulse 64 09/23/18 07:37 Respiratory Rate 18 09/23/18 07:37 Blood Pressure 104/79 09/23/18 07:37 Pulse Oximetry 98 09/23/18 07:37 Temperature 36.6 C 09/23/18 07:37 Temperature Source Skin 09/23/18 07:37 Pulse 64 09/23/18 07:37 Respiratory Rate 18 09/23/18 07:37 Blood Pressure 104/79 09/23/18 07:37 Blood Pressure Position Sitting 09/23/18 07:37 Pulse Oximetry 98 09/23/18 07:37 Oxygen Delivery Method Room Air 09/23/18 07:37 Oxygen Flow Rate 0 09/23/18 07:37 Pain Level 8 09/23/18 07:37
[2018-09-23 08:42] VITALS: RESP 4
[2018-09-23] MEDS: Albuterol/Ipratropium 3 ML UPD VIAL UPD (08:42)
--- NOTE | 2018-09-23 09:00 | DI.RAD_ITS ---
SYMPTOM/DIAGNOSIS: REPEAT WITH NIPPLE MARKERS, ? NODULE OR SUMMATION OF NIPPLE SHADOW, FELL, PAIN LEFT HUMERUS: Two views. Comparison chest xray is 12/16/17. There is again seen a side plate and screws transfixing an old healed fracture of the proximal left humerus. No acute fracture or dislocation is seen. The orthopedic hardware appears intact. The bones are osteopenic. The soft tissues are unremarkable. IMPRESSION: No acute abnormality. PA CHEST WITH NIPPLE MARKERS: A repeat frontal chest with nipple markers was performed. Comparison is made with examination from earlier in the day. The heart and pulmonary vasculature are within normal limits. The lungs are clear. No persistent nodule is present. The opacity appears to represent summation of shadows. No effusions or pneumothoraces are identified. IMPRESSION: No acute pulmonary process.
[2018-09-23 09:49] VITALS: RESP 20
== END 2018-09-23 10:19 | disposition home or self-care (01) ==
PROVIDERS: Emergency Provider Physician Assistant; PCP Family Medicine
DX: S70.02XA Contusion of left hip, initial encounter (principal); J44.1 Chronic obstructive pulmonary disease with (acute) exacerbation; M79.622 Pain in left upper arm; W01.0XXA Fall on same level from slipping, tripping and stumbling without subsequent striking against object, initial encounter; F17.210 Nicotine dependence, cigarettes, uncomplicated; Z98.890 Other specified postprocedural states
CPT/HCPCS: 73552; 99284; 71045; 71046; 73060; J7620

== ENCOUNTER 2018-12-13 12:45 | Inpatient (IN) | payer OTHER, SELFPAY ==
[2018-12-13] VITALS (39 sets, daily range): BP systolic 102–129; BP diastolic 57–94; PULSE 67–108; RESP 14–28; TEMP 36.1–36.7; O2SAT 92–98
--- NOTE | 2018-12-13 12:58 | DI.CT_ITS ---
SYMPTOMS/DIAGNOSIS: ALTERED MENTATION, HEADACHE NONCONTRAST HEAD CT: Comparison is made with December,. No intracranial hemorrhage, mass or infarct is seen. The ventricles are normal in size. There are no significant white matter changes. There is no evidence of skull fracture. The visualized portions of the sinuses and mastoid air cells appear clear. IMPRESSION: Negative head CT. No skull fracture or sinus opacification.
--- NOTE | 2018-12-13 13:02 | ED.GENADUL_ITS ---
Discharge Plan Disposition Patient Disposition: [facility] INPATIENT Condition: Serious Discharge Details Chief Complaint: AMS/LOC Clinical Impression: Altered mental status, Leukocytosis Primary Care Provider: Jumana Gay ED Provider: Ori Mcghee Home Meds and New Rx's Prescriptions: No Action thiamine mononitrate (vit B1) 100 MG tablet 100 mg PO BID Qty: 100 RF: 3 Narcan 4 MG spray,non-aerosol 4 mg NS PRN Qty: 2 RF: 2 docusate sodium 100 MG capsule 200 mg PO BID RF: 0 pantoprazole 40 MG tablet,delayed release (DR/EC) 40 mg PO DAILY Qty: 90 RF: 3 ondansetron 4 mg tablet,disintegrating 4 mg PO QID PRN (Reason: nausea and vomiting) Qty: 30 RF: 0 polyethylene glycol 3350 17 GM powder in packet 17 gm PO BID PRN PRN (Reason: Constipation) RF: 0 acetaminophen [Mapap Extra Strength] 500 MG tablet 500 mg PO Q4H PRN PRNRF: 0 buprenorphine-naloxone [Suboxone] 8-2 mg Film 2 film SUBLINGUAL DAILY RF: 0 gabapentin 300 MG capsule 1,200 mg PO QID RF: 0 lidocaine [Lidoderm] 5 % adhesive patch,medicated 2 patch TP DAILY PRN (Reason: pain) Qty: 15 RF: 0 prednisone 20 mg tablet 40 mg PO DAILY Qty: 8 RF: 0 albuterol sulfate 90 mcg/actuation HFA aerosol inhaler 1 puff IH Q6H PRN (Reason: shortness of breath or wheezing) Qty: 6.7 RF: 0 Medical Decision Making 13:00 --58-year-old female with multiple medical problems here with altered mental status. Patient is oriented to person and place at this time. Unclear at baseline mental status. Patient has moderate headache that she notes is typical with no focal neurologic deficits and no meningeal signs. She is afebrile. She does have dry mucous membranes and is tachycardic. I will give IV fluid for dehydration. She denies drug or recent etoh use. We will attempt to determine baseline mentation. I have called her son at the number she provided. Consider acute delirium and will check for metabolic derangements and urinary tract infection. No history of trauma but given altered mentation, consider traumatic injury. I will obtain CT of the head. 14:34 --labs reviewed and leukocytosis noted. Hypomagnesemia noted. UA pending. Patient was given magnesium [address] the head interpreted by radiology: No acute intracranial abnormality. Plan for lumbar puncture to assess for encephalitis/meningitis. I discussed lumbar puncture with the patient. I discussed risk benefits of the procedure. Patient understands the risk benefits and patient provides informed refusal of LP. On reassessment patient noted to have some cough. I will obtain chest x-ray. 16:35 --chest x-ray interpreted by radiology: IMPRESSION: 1. New 0.7 cm left lower lobe lung nodule does not correspond to the previously mentioned larger lung nodule 09/23/2018. On the nipple marker films the nodule may overlie the left ninth posterior rib. Consider chest CT for further evaluation of the incompletely evaluated lung nodule noted on a chest x-ray. 2. No acute cardiopulmonary findings. Chronic interstitial lung changes. 3. Multiple old fractures as discussed above UA reviewed and not consistent with UTI. I again discussed LP with patient. Lumbar puncture performed by me after verbal consent from the patient. Thiamine 100mg IV given. -- CSF neg. Unclear etiology for altered mentation and leukocytosis. Patient does have wound that appears to be healing and without cellulitis changes RLE. I called and spoke with Dr. oTbias who will admit the patient. HPI General Mode of arrival: EMS . Date/Time Provider Initiated Documentation: 12/13/18 12:57 . Limitations to Documentation: altered mental status . Information obtained by: patient and EMS . HPI Narrative: 58-year-old female with multiple medical problems presents with EMS with altered mental status. Apparently patient was found by law enforcement wandering streets attempting to climb a fence. EMS were called to assess the patient and found her to be confused. Patient states that she has no complaint at this time other than moderate headache. Patient states that she gets headaches from time to time and that this is no different from prior headaches. She is requesting some food. Patient understands where she is and why she is here. She states she was attempted on the fence to get to the store and its easiest way to get to the store. Patient states she lives with her son and is able to provide his phone number. Patient states that she was recently treated at rehab facility for right lower l eg wound which is now healing. Patient denies chest pain, shortness of breath, abdominal pain, urinary symptoms, nausea, vomiting, blurred vision, and review of systems otherwise negative. Related Data Home Medications Medication Instructions Recorded Confirmed thiamine mononitrate (vit B1) 100 mg PO BID #100 tab 04/02/16 09/23/18 Narcan 4 mg NS PRN #2 spray 10/10/16 09/23/18 docusate sodium 200 mg PO BID tab-cap 04/21/17 09/23/18 pantoprazole 40 mg PO DAILY #90 tab-cap 04/21/17 09/23/18 acetaminophen [Mapap Extra 500 mg PO Q4H PRN PRN tab 07/17/17 09/23/18 Strength] polyethylene glycol 3350 17 gm PO BID PRN PRN packet 07/17/17 09/23/18 ondansetron 4 mg PO QID PRN #30 tab 06/25/18 09/23/18 albuterol sulfate 1 puff IH Q6H PRN #6.7 gm 09/23/18 buprenorphine-naloxone [Suboxone] 2 film SUBLINGUAL DAILY 09/23/18 09/23/18 gabapentin 1,200 mg PO QID 09/23/18 09/23/18 lidocaine [Lidoderm] 2 patch TP DAILY PRN #15 each 09/23/18 prednisone 40 mg PO DAILY #8 tab 09/23/18 Previous Rx's Medication Instructions Recorded pantoprazole 40 mg PO DAILY #90 tab-cap 04/21/17 acetaminophen [Mapap Extra 500 mg PO Q4H PRN PRN tab 07/17/17 Strength] polyethylene glycol 3350 17 gm PO BID PRN PRN packet 07/17/17 ondansetron 4 mg PO QID PRN #30 tab 06/25/18 albuterol sulfate 1 puff IH Q6H PRN #6.7 gm 09/23/18 lidocaine [Lidoderm] 2 patch TP DAILY PRN #15 each 09/23/18 prednisone 40 mg PO DAILY #8 tab 09/23/18 Allergies Allergy/AdvReac Type Severity Reaction Status Date / Time latex Allergy Intermediate burning Unverified 09/23/18 07:42 Penicillins Allergy Intermediate Hives Unverified 09/23/18 07:42 General Stated Complaint: AMS/LOC JUAN DANIEL: 3 Review of Systems Review of Systems All systems reviewed & are unremarkable except as noted in HPI and below Constitutional Denies fever(s) and Reports headache(s) ENT Reports headache(s) Neurologic Reports headache(s) [facility] Medical History Alcohol abuse Anxiety and depression Chronic pain Shoulder s/p fx's COPD (chronic obstructive pulmonary disease) GERD (gastroesophageal reflux disease) Hyperlipidemia Hypertension Surgical History Debridement, Soft Tissue (06/10/15) [facility] Dr De Guzman: debridment and washout of multiple right thigh lacerations with complex closure flap coverage (11/07/17) bipedicled fasciocutaneous advancement flap coverage of left lower extremtiy wound, STSG and wound vac placement. [facility] [place]. 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 pt is confused at the moment. Do you feel safe at home: Yes Do you feel safe in your relationship?: Yes Exam Const General: cooperative, no acute distress, disheveled and other (Poor hygiene) Orientation: alert and awake Limitations: altered mental status [facility] Head: normocephalic and atraumatic Mouth: mucous membranes dry Throat: posterior oropharynx normal Eyes Conjunctivae: normal conjunctivae Sclera: normal sclerae EOM: EOM intact bilaterally Neck Neck: trachea midline and supple Resp Auscultation: clear to auscultation bilaterally, no rales, no rhonchi and no wheezes Cardio Jugular venous pressure: no JVD Rate: regular rate and not tachycardic Rhythm: regular rhythm GI Palpation: soft, not firm, no guarding, no masses, not rigid and nontender Skin General skin exam: no rashes or lesions noted Neuro General: alert, awake, oriented Patient Orientation: Person, Place and Confused (October 2019), tone normal, no focal motor deficits and CN's II-XI intact bilaterally Speech: speech normal Sensory Exam: no sensory deficits noted Extrem General: no edema Psych Appearance: disheveled Speech and Movement: speech and movement normal Affect: blunted Attitude: cooperative Course Vital Signs Temperature 36.7 C 12/13/18 12:46 Pulse 108 H 12/13/18 12:46 Respiratory Rate 22 12/13/18 12:46 Blood Pressure 124/94 H 12/13/18 12:46 Pulse Oximetry 98 12/13/18 12:46 Temperature 36.7 C 12/13/18 12:46 Temperature Source Skin 12/13/18 12:46 Pulse 108 H 12/13/18 12:46 Respiratory Rate 22 12/13/18 12:46 Respiratory Effort Non-Labored 12/13/18 12:54 Blood Pressure 124/94 H 12/13/18 12:46 Blood Pressure Position Supine 12/13/18 12:46 Pulse Oximetry 98 12/13/18 12:46 Oxygen Delivery Method Room Air 12/13/18 12:46 Oxygen Flow Rate 0 12/13/18 12:46 Procedures Lumbar Puncture Time Out Performed: Yes Patient Position: right lateral decubitus Skin Prep: Povidone-Iodine 1% Local Anesthetic: Lidocaine 1% Amount of anesthesia used (mL): 5 Spinal Needle Gauge: 22G Interspace Used: L4-L5 Fluid Initially Obtained: clear Complications: none
[2018-12-13] MEDS: Normal Saline 1,000 ML 1000 ML IV (13:06)
--- NOTE | 2018-12-13 13:18 | NUR.NOTE ---
Nursing Note: Care management page to discuss patient care.
[2018-12-13 13:20] LABS: Abs Immature Grans 0.09 k/cumm (0.0-0.09); Absolute Neutrophil Count 19.88 k/cumm (1.2-6.7); Basophils % 0.3; Eosinophils % 0.1; HCT 50.3 % (36.0-46.0); HGB 17.1 g/dL (12.0-15.5); Immature Grans % 0.4; Lymphocytes % 4.1; Mean Corpuscular Hemoglobin 30.9 pg (27.0-33.0); Mean Corpuscular Volume 90.8 fL (80-95); Mean Platelet Volume 9.6 fL (8.0-11.0); Monocytes % 5.4; Neutrophils % 89.7; Platelet Count 308 x1000/uL (130-400); RBC 5.54 m/cumm (4.00-5.20); RBC Distribution Width 13.7 % (11.7-14.6); White Blood Cell Count 22.16 k/cumm (4.4-10.8)
--- NOTE | 2018-12-13 13:24 | NUR.NOTE ---
Nursing Note: Case management spoken with in regards to patients care. Norma states that she will attempt to make contact with patient's son.
[2018-12-13 13:29] LABS: Absolute Basophil Count 0.07 k/cumm (0.0-0.2); Absolute Eosinophil Count 0.02 k/cumm (0.0-0.7); Absolute Lymphocyte Count 0.91 k/cumm (1.2-3.4)
--- NOTE | 2018-12-13 13:30 | NUR.NOTE ---
pt provided with drink able to tolorate po intake Nursing Note:
[2018-12-13 13:35] LABS: ALT 19 U/L (14-59); AST 19 U/L (15-37); Albumin 3.8 g/dL (3.4-5.0); Alkaline Phosphatase 131 U/L (46-116); Anion Gap 13.7 mmol/L (3-11); BUN 7 mg/dL (7-18); Bilirubin, Total 0.6 mg/dL (0.2-1.0); CO2 26.3 mmol/L (21.0-32.0); CREATININE 0.83 mg/dL (0.55-1.02); Calcium 9.1 mg/dL (8.5-10.1); Chloride 99 mmol/L (98-107); Glucose 194 mg/dL (70-100); Magnesium 1.4 mg/dL (1.8-2.4); Sodium 139 mmol/L (136-145)
[2018-12-13 13:44] LABS: ETHANOL BLOOD < 3.0 mg/dL (<3)
--- NOTE | 2018-12-13 13:48 | CMPROGNOTE_ITS ---
- If Service Date Differs Date of service: 12/13/18 Time of Service: 13:48 Care Management Progress Note CM contacted Joann's son Austin whom she lives with in [place]. He is in [place], [place] he is in route and should be to [facility] in about 3 hours approx. 1700.
--- NOTE | 2018-12-13 13:48 | PDOC.ERCMPRO ---
- If Service Date Differs Date of service: 12/13/18 Time of Service: 13:48 Care Management Progress Note CM contacted Joann's son Austin whom she lives with in [place]. He is in [place], [place] he is in route and should be to [facility] in about 3 hours approx. 1700.
[2018-12-13] MEDS: MAGNESIUM SULFATE 1 GM/100 ML BAG IVPB (14:00)
--- NOTE | 2018-12-13 14:07 | DI.VRAD_ITS ---
EXAM: CT Head Without Contrast EXAM DATE/TIME: 12/13/2018 1:01 PM CLINICAL HISTORY: 58 years old, female; Other: Altered mentation, headache TECHNIQUE: Imaging protocol: Computed tomography of the head without contrast. Radiation optimization: All CT scans at this facility use at least one of these dose optimization techniques: automated exposure control; mA and/or kV adjustment per patient size (includes targeted exams where dose is matched to clinical indication); or iterative reconstruction. COMPARISON: CT HEAD WO 07/21/2017 10:04 FINDINGS: Brain: Unremarkable. No intracranial hemorrhage. Unremarkable white matter. No mass effect. Ventricles: Unremarkable. No ventriculomegaly. Bones/joints: Unremarkable. No acute fracture. Sinuses: Visualized sinuses are unremarkable. No fluid levels. Mastoid air cells: Visualized mastoid air cells are well aerated. Soft tissues: Unremarkable. IMPRESSION: No acute intracranial abnormality. Dictated and Authenticated by: Megan Brooks MD. Ordering:HARRIS Rehman MD
--- NOTE | 2018-12-13 14:34 | DI.RAD_ITS ---
SYMPTOMS/DIAGNOSIS: COUGH PA AND LATERAL CHEST: Comparison is made with December,. The heart size is normal. There are old bilateral rib fractures. There is hardware in both proximal humeri. The lungs appear clear. No thoracic compression fractures are seen. IMPRESSION: No acute abnormality.
--- NOTE | 2018-12-13 15:10 | DI.VRAD_ITS ---
EXAM: XR Chest, 2 Views EXAM DATE/TIME: 12/13/2018 2:54 PM CLINICAL HISTORY: 58 years old, female; Other: Cough TECHNIQUE: Imaging protocol: XR of the chest, 2 views. COMPARISON: CR XR CHEST 1V IN DI DEPT 03/19/2019 09:25 FINDINGS: Lungs: Coarse increased interstitial lung markings bilaterally stable compared with prior study. Possible 0.7 cm left lower lobe lung nodule not appreciated on the prior chest x-ray. Pleural space: Unremarkable. No pleural effusion. No pneumothorax. Heart/Mediastinum: Cardiomediastinal silhouette is unchanged. Bones/joints: Postsurgical changes of the right and left humerus. Old bilateral clavicular fractures. Multiple old bilateral rib fractures. Multilevel degenerative changes of the thoracic spine. IMPRESSION: 1. New 0.7 cm left lower lobe lung nodule does not correspond to the previously mentioned larger lung nodule 09/23/2018. On the nipple marker films the nodule may overlie the left ninth posterior rib. Consider chest CT for further evaluation of the incompletely evaluated lung nodule noted on a chest x-ray. 2. No acute cardiopulmonary findings. Chronic interstitial lung changes. 3. Multiple old fractures as discussed above Dictated and Authenticated by: Megan Brooks MD. Ordering:HARRIS Rehman MD
--- NOTE | 2018-12-13 15:49 | NUR.NOTE ---
Nursing Note: Report filed with adult protective services online. distributor sales manager Norma notified.
[2018-12-13 15:55] LABS: Bilirubin Negative (Negative); Blood Negative (Negative); Clarity Clear (Clear); Glucose 100 mg/dL (Negative); Ketones Negative (Negative); Leukocyte Esterase Trace (Negative); Nitrite Negative (Negative); Urobilinogen 0.2 EU/dL (Up TO 0.2); pH 6.5 (5-8)
[2018-12-13 16:14] LABS: Bacteria Moderate HPF (Negative); C & S Indicated? No/Sq. Contamination; Casts Negative LPF (Negative); Crystals Negative HPF (Negative); Epithelial Cells Moderate HPF (Negative); Mucus Negative (Negative); RBC 0-2 (0-2); WBC 0-2 HPF (0-5)
[2018-12-13 16:19] LABS: *AMPHETAMINES SCREEN URINE Negative (Negative); *BARBITURATES SCREEN URINE Negative (Negative); *BENZODIAZEPINES SCREEN URINE Negative (Negative); Cannabinoids THC POSITIVE (Negative); Cocaine Screen,Urine Negative (Negative); METHADONE URINE SCREEN Negative (Negative); OPIATES URINE SCREEN Negative (Negative)
[2018-12-13 16:29] LABS: Tricyclic Antidepressants POSITIVE (Negative)
--- NOTE | 2018-12-13 16:30 | NUR.NOTE ---
lp performed by with this nurses asisst Nursing Note:
[2018-12-13 17:23] LABS: Glucose (CSF) 81 mg/dL (40-70)
--- NOTE | 2018-12-13 17:31 | NUR.NOTE ---
Nursing Note: pt continually attempts to get out of bed, not responsive to redirecting. Call out to med-surg for bed alarm. States that there are no bed alarms that are compatible with ER stretcher. [facility] to [facility] office supervisor for sitter. States that there are non available.
[2018-12-13 17:47] LABS: Total Protein (CSF) 39 mg/dL (15-45)
[2018-12-13 17:49] LABS: Clarity Clear; Tube # 4; Xanthochromia Absent
[2018-12-13 17:50] LABS: RBC 1 /mm3 (0-5); WBC 3 /mm3 (0-5)
[2018-12-13] MEDS: THIAMINE 100 MG in Normal Saline 100 ML 200 MG IVPB (18:23)
--- NOTE | 2018-12-13 18:29 | NUR.NOTE ---
lab at bedside drawing blood cultures Nursing Note:
--- NOTE | 2018-12-13 18:40 | NUR.NOTE ---
iv antibiotics infusing Nursing Note:
[2018-12-13] MEDS: DOXYCYCLINE 100 MG in Normal Saline 100 ML IVPB (20:54)
[2018-12-13] MEDS: Normal Saline Flush 10 ML SYR IVP ×2 (20:55→22:39)
--- NOTE | 2018-12-13 21:22 | W.PM.HP.N ---
Date of service: 12/13/18 Time of Service: 21:22 Assessment and Plan (1) Metabolic encephalopathy: Current visit: Yes Status: Acute Unclear as to the etiology. She does not appear to be in acute alcohol withdrawal, i.e. not diaphoretic nor tachycardic nor tremulous. Her leukocytosis is also enigmatic. She is afebrile and her CXR and CT of her head are negative save for the new lung nodule. Her UA was contaminated but otherwise did not appear to be grossly infected. Her LP was also unremarkable. I have ordered further labs to evaluate for syphilis, HIV, vasculitis and Tick/Lyme panel and will proceed w/ MRI of her brain on Friday if her mental status has not improved (no MRI over ). I will also check an ammonia level. Will also get EEG on Friday. In light of her leukocytosis I will obtain blood cultures and have nursing attempt to get cath specimen for clean UA and C&S and empirically treat her w/ Rocephin and Doxycycline until urine and blood cultures are negative. (2) Leukocytosis, unspecified: Current visit: Yes Status: Acute as above. Qualifiers: Leukocytosis type: unspecified Qualified Code(s): D72.829 - Elevated white blood cell count, unspecified (3) Left lower lobe pulmonary nodule: Current visit: Yes Status: Acute I think that the radiologist is calling her left nipple shadow a nodule. I would either repeat her CXR w/ nipple markers in place or perform a CT scan of the chest. Either way this needs clarified History of Present Illness Chief Complaint: acute mental status change Narrative: 58 yr old female w/ PMH of alcoholism and alcohol withdrawal, frequent falls resulting in prior fractures of her hip and arms, and ribs, COPD, HTN, HLD, GERD and depression w/ anxiety who presented to the ER via EMS w/ altered mental status. Patient was found by law enforcement wandering the streets attempting to climb over a fence. EMS was requested to evaluate her and found her to be confused/disoriented. Her only complaint in the ER was that of headache. She reportedly was oriented to person and place in the ER and told the ER physician that she was climbing the fence to get to the store because that was the easiest route. She stated that she lives w/ her son and provided his number. CM contacted her son, he confirmed that he lives w/ the patient in [facility] but he was in [facility] at the time but would return to [facility] as soon as possible. On admission her vital signs were stable and she was afebrile. Workup in the ER included CT of the head (no acute pathology), CXR (new 0.7 cm LLL nodule, no acute cardiopulmonary findings but chronic interstitial lung changes and multiple old bilateral rib fractures), CBC demonstrating leukocytosis of 22,000 with neutrophilia of 19,880 and polycythemia (Hb 17.1 gm HCT 50%), low Mg++ 1.4, normal renal and liver function tests, tox screen + for TCA and THC, and UA that was fairly unremarkable (did have moderate bacteria but also moderate epithelial cells w/ negative nitirites and only trace of LE w/ 0-2 WBC). A lumbar puncture was performed by Dr. Mcghee which also was unremarkable (clear, colorless w/ only 3 WBC and 1 RBC, glucose of 81 and protein 39 and gram stain showing a few WBC but no bacteria. The patient received magnesium sulfate 1 gm IV and thiamine 100 mg IV while in the ER. Patient is being admitted for evaluation of her encephalopathy and her leukocytosis. Review of Systems Review of Systems Unobtainable due to mental condition [facility] Medical History Alcohol abuse Anxiety and depression Chronic pain Shoulder s/p fx's COPD (chronic obstructive pulmonary disease) GERD (gastroesophageal reflux disease) Hyperlipidemia Hypertension Surgical History Debridement, Soft Tissue (06/10/15) [facility] Dr De Guzman: debridment and washout of multiple right thigh lacerations with complex closure flap coverage (11/07/17) bipedicled fasciocutaneous advancement flap coverage of left lower extremtiy wound, STSG and wound vac placement. [facility] plasti surg. 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 pt is confused at the moment. But prior H&P have documented heavy alcohol use and occasional marijiuana use Household members: children What is your relationship status?: Panel score (0-1 are the most socially isolated patients): 0 Do you feel safe at home: Yes Do you feel safe in your relationship?: Yes Meds Home Medications Medication Instructions Recorded Confirmed Type Narcan 4 mg NS PRN #2 spray 10/10/16 12/13/18 History acetaminophen [Mapap Extra 500 mg PO Q4H PRN PRN tab 07/17/17 12/13/18 Rx Strength] albuterol sulfate 1 puff IH Q6H PRN #6.7 gm 09/23/18 Rx gabapentin 600 mg PO TID 09/23/18 12/13/18 History amitriptyline 200 mg PO HS 12/13/18 12/13/18 History budesonide-formoterol [Symbicort] 2 puff INHALATION DAILY 12/13/18 12/13/18 History buprenorphine-naloxone [Suboxone] 1 film SUBLINGUAL DAILY 12/13/18 12/13/18 History cyanocobalamin (vitamin B-12) 500 mcg PO DAILY 12/13/18 12/13/18 History ferrous sulfate 325 mg PO DAILY 12/13/18 12/13/18 History folic acid 0.4 mg PO DAILY 12/13/18 12/13/18 History omeprazole 40 mg PO DAILY 12/13/18 12/13/18 History Allergies Allergy/AdvReac Type Severity Reaction Status Date / Time latex Allergy Intermediate burning Unverified 09/23/18 07:42 Penicillins Allergy Intermediate Hives Unverified 09/23/18 07:42 Exam Narrative Exam Narrative: Patient was uncooperative w/ examination, lying supine in the bed and refusing to cooperate w/ exam. She is not oriented to place or time but is oriented to her name HEENT exam was very limited. Pupils small but reactive to direct and consensual light; unable to examine mouth/nose or ears Lungs are clear to auscultation Heart is regular w/out murmur, rub or gallop. Normal S1 and S2 Abdomen is soft, nontender and not distended. I did not appreciate any masses or hepatosplenomegaly Extremities w/out clubbing, cyanosis or edema and no calf pain or tenderness. She has well healed scar over left distal leg where she has previous skin graft Neuro exam is nonfocal w/out facial asymmetry, speech is clear, she is oriented to person only. No focal motor or sensory deficits to light touch. Psychiatric assessment: she is withdrawn, uncooperative, avoids eye contact and minimal speech but when pressed for answers her speech is clear and coherent although her answers are neither reliable nor consistent w/ answers she has given to others. Results Imaging Chest x-ray: image reviewed (I think that the radiologist is calling the left nipple a nodule) Imaging Studies: CT head w/out contrast: COMPARISON: CT HEAD WO 07/21/2017 10:04 FINDINGS: Brain: Unremarkable. No intracranial hemorrhage. Unremarkable white matter. No mass effect. Ventricles: Unremarkable. No ventriculomegaly. Bones/joints: Unremarkable. No acute fracture. Sinuses: Visualized sinuses are unremarkable. No fluid levels. Mastoid air cells: Visualized mastoid air cells are well aerated. Soft tissues: Unremarkable. IMPRESSION: No acute intracranial abnormality. Dictated and Authenticated by: Megan Brooks MD Labs : 12/13/18 13:05 12/13/18 13:05 Laboratory Results - last 24 hr 12/13/18 12/13/18 12/13/18 13:05 13:05 13:05 WBC 22.16 H RBC 5.54 H Hgb 17.1 H Hct 50.3 H MCV 90.8 MCH 30.9 MCHC 34.0 RDW 13.7 Plt Count 308 MPV 9.6 Immature Gran % 0.4 Neutrophils % 89.7 Lymphocytes % 4.1 Monocytes % 5.4 Eosinophils % 0.1 Basophils % 0.3 Absolute Neutrophils 19.88 H Absolute Lymphocytes 0.91 L Absolute Monocytes 1.20 H Absolute Eosinophils 0.02 Absolute Basophils 0.07 Xanthochromia Sodium 139 Potassium 4.0 Chloride 99 Carbon Dioxide 26.3 Anion Gap 13.7 H BUN 7 Creatinine 0.83 Estimated GFR/1.73 m2 >= 60.00 Glucose 194 H Calcium 9.1 Magnesium 1.4 L Total Bilirubin 0.6 AST 19 ALT 19 Alkaline Phosphatase 131 H Total Protein 7.0 Albumin 3.8 Urine Color Urine Clarity Urine pH Ur Specific [place] Urine Protein Urine Ketones Urine Blood Urine Nitrite Urine Bilirubin Urine Urobilinogen Ur Leukocyte Esterase Urine RBC Urine WBC Ur Epithelial Cells Urine Crystals Urine Bacteria Urine Casts Urine Mucus Ur Culture Indicated? Urine Glucose CSF Tube Number CSF Color CSF Clarity CSF WBC CSF RBC CSF Diff Comment CSF Glucose CSF Total Protein Urine Opiates Screen Urine Methadone Screen Ur Barbiturates Screen Ur Tricyclics Screen Ur Amphetamines Screen U Benzodiazepines Scrn Urine Cocaine Screen Ur THC Screen Ethyl Alcohol < 3.0 12/13/18 12/13/18 12/13/18 15:30 15:30 16:33 WBC RBC Hgb Hct MCV MCH MCHC RDW Plt Count MPV Immature Gran % Neutrophils % Lymphocytes % Monocytes % Eosinophils % Basophils % Absolute Neutrophils Absolute Lymphocytes Absolute Monocytes Absolute Eosinophils Absolute Basophils Xanthochromia Absent Sodium Potassium Chloride Carbon Dioxide Anion Gap BUN Creatinine Estimated GFR/1.73 m2 Glucose Calcium Magnesium Total Bilirubin AST ALT Alkaline Phosphatase Total Protein Albumin Urine Color Yellow Urine Clarity Clear Urine pH 6.5 Ur Specific [place] 1.010 Urine Protein Negative Urine Ketones Negative Urine Blood Negative Urine Nitrite Negative Urine Bilirubin Negative Urine Urobilinogen 0.2 Ur Leukocyte Esterase Trace H Urine RBC 0-2 Urine WBC 0-2 Ur Epithelial Cells Moderate Urine Crystals Negative Urine Bacteria Moderate Urine Casts Negative Urine Mucus Negative Ur Culture Indicated? No/sq. contamination Urine Glucose 100 CSF Tube Number 4 CSF Color Colorless CSF Clarity Clear CSF WBC 3 CSF RBC 1 CSF Diff Comment CSF Glucose CSF Total Protein Urine Opiates Screen Negative Urine Methadone Screen Negative Ur Barbiturates Screen Negative Ur Tricyclics Screen Positive Ur Amphetamines Screen Negative U Benzodiazepines Scrn Negative Urine Cocaine Screen Negative Ur THC Screen Positive Ethyl Alcohol 12/13/18 12/13/18 16:33 16:38 WBC RBC Hgb Hct MCV MCH MCHC RDW Plt Count MPV Immature Gran % Neutrophils % Lymphocytes % Monocytes % Eosinophils % Basophils % Absolute Neutrophils Absolute Lymphocytes Absolute Monocytes Absolute Eosinophils Absolute Basophils Xanthochromia Sodium Potassium Chloride Carbon Dioxide Anion Gap BUN Creatinine Estimated GFR/1.73 m2 Glucose Calcium Magnesium Total Bilirubin AST ALT Alkaline Phosphatase Total Protein Albumin Urine Color Urine Clarity Urine pH Ur Specific [place] Urine Protein Urine Ketones Urine Blood Urine Nitrite Urine Bilirubin Urine Urobilinogen Ur Leukocyte Esterase Urine RBC Urine WBC Ur Epithelial Cells Urine Crystals Urine Bacteria Urine Casts Urine Mucus Ur Culture Indicated? Urine Glucose CSF Tube Number CSF Color CSF Clarity CSF WBC CSF RBC CSF Diff Comment CSF Glucose 81 H CSF Total Protein 39 Urine Opiates Screen Urine Methadone Screen Ur Barbiturates Screen Ur Tricyclics Screen Ur Amphetamines Screen U Benzodiazepines Scrn Urine Cocaine Screen Ur THC Screen Ethyl Alcohol Last Vital Signs Temp 36.7 C 12/13/18 19:07 Pulse 72 12/13/18 19:07 Resp 18 12/13/18 19:07 BP 126/83 12/13/18 19:07 Pulse Ox 96 12/13/18 19:07
[2018-12-13] MEDS: MAGNESIUM SULFATE 8.12 MEQ, MULTIVITAMIN 10 ML, THIAMINE 100 MG, FOLIC ACID 1 MG in Nor... 168.867 MG IV (22:40)
[2018-12-13 23:21] LABS: Ammonia 19 umol/L (11-32)
[2018-12-14] MEDS: THIAMINE 500 MG in Normal Saline 100 ML 200 MG IVPB ×3 (00:13→15:35)
[2018-12-14 03:22] VITALS: BP 122/77; PULSE 66; RESP 18; TEMP 36.5; O2SAT 96
--- NOTE | 2018-12-14 06:02 | NUR.NOTE ---
Nursing Note: 12/13/18 1900 pt arrived to med surg floor. pt sleeping and uncooperative with answering questions for admission assessment. pt a/o x2.
--- NOTE | 2018-12-14 06:04 | NUR.NOTE ---
Nursing Note: 12/13/18 2330- new IV in left forearm. doxcycline hung through first iv then it was leaking. banana bag and thiamine hung at 2330 when new iv was put in.
[2018-12-14 07:26] LABS: Prothrombin Time 9.9 sec (9.3-11.0)
[2018-12-14 07:32] LABS: ALT 17 U/L (14-59); AST 16 U/L (15-37); Albumin 2.9 g/dL (3.4-5.0); Alkaline Phosphatase 95 U/L (46-116); Anion Gap 9.4 mmol/L (3-11); BUN 7 mg/dL (7-18); Bilirubin, Total 0.3 mg/dL (0.2-1.0); CO2 25.6 mmol/L (21.0-32.0); Calcium 8.4 mg/dL (8.5-10.1); Chloride 107 mmol/L (98-107); Glucose 96 mg/dL (70-100); Potassium 3.3 mmol/L (3.5-5.1); Sodium 142 mmol/L (136-145); Total Protein 5.8 g/dL (6.4-8.2)
[2018-12-14 07:45] VITALS: BP 138/81; PULSE 70; RESP 18; TEMP 36.6; O2SAT 97
[2018-12-14 07:46] LABS: C-Reactive Protein 3.66 mg/dL (0.0-0.3); Magnesium 2.1 mg/dL (1.8-2.4); TSH (W/Ref FT4) 0.73 uIU/mL (0.36-3.74)
[2018-12-14 08:20] LABS: Abs Immature Grans 0.01 k/cumm (0.0-0.09); Absolute Basophil Count 0.01 k/cumm (0.0-0.2); Absolute Eosinophil Count 0.03 k/cumm (0.0-0.7); Absolute Lymphocyte Count 1.14 k/cumm (1.2-3.4); Absolute Monocyte Count 0.49 k/cumm (0.11-0.7); Absolute Neutrophil Count 7.95 k/cumm (1.2-6.7); Basophils % 0.1; Eosinophils % 0.3; HCT 42.7 % (36.0-46.0); HGB 14.3 g/dL (12.0-15.5); Immature Grans % 0.1; Lymphocytes % 11.8; Mean Corp. HGB Concentration 33.5 g/dL (32.0-36.0); Mean Corpuscular Volume 92.4 fL (80-95); Mean Platelet Volume 9.5 fL (8.0-11.0); Monocytes % 5.1; Neutrophils % 82.6; Platelet Count 232 x1000/uL (130-400); RBC 4.62 m/cumm (4.00-5.20); RBC Distribution Width 13.6 % (11.7-14.6); White Blood Cell Count 9.63 k/cumm (4.4-10.8)
[2018-12-14] MEDS: DOXYCYCLINE 100 MG in Normal Saline 100 ML IVPB (08:57)
[2018-12-14 09:03] LABS: ESR 8 mm/hr (0-30)
[2018-12-14] MEDS: Potassium Chloride 20 MEQ TABCR 40 MEQ PO (09:30)
--- NOTE | 2018-12-14 09:51 | INITIAL_ITS ---
Care Management Initial Assess REASON FOR HOSPITALIZATION:: Encephalopathy, leukocytosis, COPD, AMS PAST MEDICAL HISTORY/PAST SURGICAL HISTORY:: ETOH dependency-in remission? previous relapses, anxiety/depression, insomnia, GERD, tobacco abuse, hyperlipidemia, HTN. alcoholism and alcohol withdrawal, frequent falls resulting in prior fractures of her hip and arms, and ribs, COPD, HTN, HLD, GERD and depression w/ anxiety. Surgical:gastric bypass, ORIF L tib/fib fx, shoulder surgery. PREVIOUS FUNCTIONAL STATUS/SOCIAL/FAMILY SUPPORTS:: Joann resides with her son Austin in a third floor apartment in [place], [place]. She also has a son, Martínez who resides in [place], [place] and a son Aman residing locally as well. She is on SSDI and has a pension from [employer], so her income is above eligibility for Medicaid. CURRENT FUNCTIONAL STATUS:: CM met with Austin who shared concerns around Joann's presentation. He reports managing her the community is sometimes a struggle and he limits her finances in order to limit her ability to buy alcohol. He reports that she did drink on Friday night as he found three Natty Daddy's in his apartment. He stated her cat was missing and she left the burners on the stove. [place] in [place] the weekend and therefore unable to provide a timeline of events. Austin works for [employer] and was recently promoted resulting in plans of relocation to [place], [place]. Austin reports telling his mom of this plan last week. Austin usually stays in the apartment with his mom Friday through Friday and stays with his significant other on the weekends. He shares concerns around the cause for his mother's presentation and ability to care for herself. He also shares guilt and anger around his mother's life choices and care needs and shares remorse that she likely is ashamed by his judgement. Joann is confused, she is up out of bed attempting to go to the bathroom and seemingly unaware that her gown is not covering her body when CM observes her. She is not reportedly at baseline functioning and she is unable to meaningfully engage with this program writer. ADVANCE DIRECTIVES:: None on file at [facility] Has patient been provided with information about the portal?: Yes Did the patient sign up for the portal?: No CODE STATUS:: Full Code INSURANCE COVERAGE / FINANCIAL ISSUES:: [facility] PPO CURRENT HOME/COMMUNITY SERVICES/EQUIPMENT:: [employer] PRIMARY CARE PHYSICIAN:: Jumana Gay POTENTIAL DISCHARGE NEEDS:: Follow up appointments, work-up for increased confusion. PATIENT/FAMILY EDUCATION NEEDS:: Review of discharge instructions, discuss Ask Me Three. ANTICIPATED BARRIERS TO DISCHARGE:: None identified. TRANSPORTATION:: To be determined by mobility and disposition. PLAN:: Joann will continue with work-up, MD reports MRI and EKG may be required- if tolerated-due to unknown cause of increased confusion. Joann remains oriented x2 this morning, which is not reportedly her baseline. CM continues to follow. Anticipate Joann will return home with her son when ready per MD-undetermined additional services at this time.
[2018-12-14 11:50] VITALS: BP 117/83; PULSE 68; RESP 17; TEMP 36.9; O2SAT 96
--- NOTE | 2018-12-14 13:44 | PGE_ITS ---
Date of Service Date of service: 12/14/18 Time of Service: 13:44 Assessment and Plan (1) Altered mental status: Current visit: Yes Status: Acute Etiology remains unclear. - No reported change in medications, but patient is chronically on Buprenorphine. - No evidence of drugs of abuse on limited Urine Drug Screen. - No gross electrolyte abnormality, and TSH normal. Not significantly hyper/hypoglycemic. Also not hypoxic. - No evidence of liver or kidney failure - not uremic, and ammonia levels are normal. - Although altered, the patient does not appear to be withdrawing from alcohol - BAL undetectable, no tremors or hallucinations, not diaphoretic, tachycardic, or hypertensive. Also reportedly in remission. - No evidence of infection with a negative urinalysis, CXR, and LP. Blood cultures pending and CSF cultures negative. Remains afebrile, and with leukocytosis resolved. Discontinue antibiotic therapy. - Although ABG was not obtained, no evidence of significant gap and bicarb is normal - doubt hypercapnia. Will continue to monitor - if not improved will request Neuro input, and check MRI. Cannot rule out psychiatric etiology as well. (2) Left lower lobe pulmonary nodule: Current visit: Yes Status: Acute Consider CT chest, either while hospitalized or as outpatient. (3) COPD (chronic obstructive pulmonary disease): Current visit: No Status: Acute Appears quiescent. Monitor. (4) Alcohol abuse: Current visit: No Status: Acute Reportedly in remission. (5) DVT prophylaxis: Current visit: Yes Status: Acute SC Enoxaparin. Subjective Interval history since last seen: 58 year old woman with a prior history of Alcohol abuse reportedly in remission, admitted from [facility] Emergency Department on 12/13 with a diagnosis of altered mental status. Ms. Grant has a prior history of EtOH abuse withdrawl in the past, as well as seizures likely associated with this. Her other history includes frequent prior falls resulting in fractures, COPD, HTN, CAD (by records), depression, anxiety, and GERD. Her alcohol abuse is reportedly in remission. The patient was found by law enforcement wandering the streets and attempting to climb over a fence. She was found by EMS to be confused and disoriented, and transported to the ED for further evaluation. Her work-up was remarkable for a leukocytosis, mild hypomagnesemia, elevated CRP, undetectable BAL, and urinalysis that was negative for infection. She was afebrile. CXR was obtained and showed a new 0.7 cm LLE pulmonary nodule and old rib fracutres, but without any infiltrates or other acute abnormalities. CT of her head was negative for any acute findings as well. Her UDS was positive for Tricyclics and THC only. Given the uncertain nature of her symptoms, and her complaints of headache LP was performed and negative for infection. She was referred for admission for further evaluation and treatment. This morning Ms. Grant appears awake and alert, but intermittently uncooperative with both questioning and examination. No focal deficits are noted. Tick Panel, HIV, Rheum panel, and VDRL are still pending. No overnight events reported. She remains afebrile. Exam Narrative Exam Narrative: General: Patient appears comfortable, Awake and alert - uncooperative with questioning regarding time, date, and place, NAD Neck: Supple CV: Regular, nontachycardic, S1S2, No rubs, murmurs, or gallops. Pulmonary: Clear to auscultation bilaterally, no crackles, wheezing, or rhonchi Abdomen: + Bowel Sounds, soft, nontender, nondistended Vascular: No lower extremity edema Neurologic: No focal deficits. Moving all 4 extremities. Psych: Normal mood and affect. Objective Objective Clinical Data: Abnormal lab results 12/13/18 12/13/18 12/14/18 Range/Units 15:30 16:38 06:35 Absolute Neutrophils (1.2-6.7) k/cumm Absolute Lymphocytes (1.2-3.4) k/cumm Potassium (3.5-5.1) mmol/L Creatinine (0.55-1.02) mg/dL Calcium (8.5-10.1) mg/dL C-Reactive Protein 3.66 H (0.0-0.3) mg/dL Total Protein (6.4-8.2) g/dL Albumin (3.4-5.0) g/dL Ur Leukocyte Esterase Trace H (Negative) CSF Glucose 81 H (40-70) mg/dL 12/14/18 12/14/18 Range/Units 06:35 08:06 Absolute Neutrophils 7.95 H (1.2-6.7) k/cumm Absolute Lymphocytes 1.14 L (1.2-3.4) k/cumm Potassium 3.3 L (3.5-5.1) mmol/L Creatinine 0.50 L D (0.55-1.02) mg/dL Calcium 8.4 L (8.5-10.1) mg/dL C-Reactive Protein (0.0-0.3) mg/dL Total Protein 5.8 L (6.4-8.2) g/dL Albumin 2.9 L (3.4-5.0) g/dL Ur Leukocyte Esterase (Negative) CSF Glucose (40-70) mg/dL Vital Signs Temperature 36.6 C 12/14/18 07:45 Temperature Source Tympanic 12/14/18 07:45 Pulse 70 12/14/18 07:45 Pulse Rhythm Regular 12/14/18 10:09 Pulse 80 12/13/18 16:10 Respiratory Rate 18 12/14/18 07:45 Respiratory Effort Non-Labored 12/14/18 10:09 Respiratory Depth Normal 12/14/18 10:09 Respiratory Pattern Normal 12/14/18 10:09 Blood Pressure 138/81 12/14/18 07:45 Blood Pressure Mean 92 12/13/18 16:00 Blood Pressure Position Supine 12/13/18 12:46 Pulse Oximetry 97 12/14/18 07:45 Oxygen Delivery Method Room Air 12/14/18 07:45 Oxygen Flow Rate 0 12/14/18 07:45 Pain Level 0 12/14/18 07:45 Intake & Output 12/13/18 12/14/18 12/14/18 23:59 11:59 23:59 Intake Total 1260 / 1260 310 / 310 Output Total 200 / 200 Balance 1260 / 1260 310 / 110 -200 / 110 Weight 54.5 kg 53.6 kg Intake: IV 1260 / 1260 310 / 310 Output: Urine 200 / 200 Other: Urine Color Yellow Urine Appearance Clear Comment pt did not void in hat. did not see Voiding Methods Toilet Laboratory Results WBC 9.63 k/cumm (4.4-10.8) D 12/14/18 08:06 RBC 4.62 m/cumm (4.00-5.20) 12/14/18 08:06 Hgb 14.3 g/dL (12.0-15.5) D 12/14/18 08:06 Hct 42.7 % (36.0-46.0) 12/14/18 08:06 MCV 92.4 fL (80-95) 12/14/18 08:06 MCH 31.0 pg (27.0-33.0) 12/14/18 08:06 MCHC 33.5 g/dL (32.0-36.0) 12/14/18 08:06 RDW 13.6 % (11.7-14.6) 12/14/18 08:06 Plt Count 232 x1000/uL (130-400) 12/14/18 08:06 MPV 9.5 fL (8.0-11.0) 12/14/18 08:06 Immature Gran % 0.1 12/14/18 08:06 82.6 12/14/18 08:06 Cancelled 12/14/18 06:35 11.8 12/14/18 08:06 Atypical Lymphs % Cancelled 12/14/18 06:35 5.1 12/14/18 08:06 0.3 12/14/18 08:06 0.1 12/14/18 08:06 Cancelled 12/14/18 06:35 Cancelled 12/14/18 06:35 Cancelled 12/14/18 06:35 Absolute Neutrophils 7.95 k/cumm (1.2-6.7) H 12/14/18 08:06 Absolute Lymphocytes 1.14 k/cumm (1.2-3.4) L 12/14/18 08:06 Absolute Monocytes 0.49 k/cumm (0.11-0.7) 12/14/18 08:06 Absolute Eosinophils 0.03 k/cumm (0.0-0.7) 12/14/18 08:06 Absolute Basophils 0.01 k/cumm (0.0-0.2) 12/14/18 08:06 Nucleated RBCs Cancelled 12/14/18 06:35 Cancelled 12/14/18 06:35 Cancelled 12/14/18 06:35 RBC Morphology Cancelled 12/14/18 06:35 Cancelled 12/14/18 06:35 Cancelled 12/14/18 06:35 Absent 12/13/18 16:33 Cancelled 12/14/18 06:35 Cancelled 12/14/18 06:35 Cancelled 12/14/18 06:35 Cancelled 12/14/18 06:35 Cancelled 12/14/18 06:35 Cancelled 12/14/18 06:35 Cancelled 12/14/18 06:35 Cancelled 12/14/18 06:35 Cancelled 12/14/18 06:35 Cancelled 12/14/18 06:35 Cancelled 12/14/18 06:35 Cancelled 12/14/18 06:35 Acanthocytes (Spur) Cancelled 12/14/18 06:35 Cancelled 12/14/18 06:35 ESR 8 mm/hr (0-30) 12/14/18 08:06 PT 9.9 sec (9.3-11.0) 12/14/18 06:35 INR 1.0 (0.9-1.1) 12/14/18 06:35 Sodium 142 mmol/L (136-145) 12/14/18 06:35 Potassium 3.3 mmol/L (3.5-5.1) L 12/14/18 06:35 Chloride 107 mmol/L (98-107) 12/14/18 06:35 Carbon Dioxide 25.6 mmol/L (21.0-32.0) 12/14/18 06:35 9.4 mmol/L (3-11) 12/14/18 06:35 BUN 7 mg/dL (7-18) 12/14/18 06:35 0.50 mg/dL (0.55-1.02) L D 12/14/18 06:35 >= 60.00 (mL/min/1.73m2) 12/14/18 06:35 Glucose 96 mg/dL (70-100) D 12/14/18 06:35 Calcium 8.4 mg/dL (8.5-10.1) L 12/14/18 06:35 Magnesium 2.1 mg/dL (1.8-2.4) 12/14/18 06:35 0.3 mg/dL (0.2-1.0) 12/14/18 06:35 AST 16 U/L (15-37) 12/14/18 06:35 ALT 17 U/L (14-59) 12/14/18 06:35 95 U/L (46-116) 12/14/18 06:35 19 umol/L (11-32) 12/13/18 23:00 3.66 mg/dL (0.0-0.3) H 12/14/18 06:35 5.8 g/dL (6.4-8.2) L 12/14/18 06:35 2.9 g/dL (3.4-5.0) L 12/14/18 06:35 TSH 0.73 uIU/mL (0.36-3.74) 12/14/18 06:35 Yellow (Yellow) 12/13/18 15:30 Clear (Clear) 12/13/18 15:30 6.5 (5-8) 12/13/18 15:30 Ur Specific [place] 1.010 (1.005-1.025) 12/13/18 15:30 Negative mg/dL (Negative) 12/13/18 15:30 Negative mg/dL (Negative) 12/13/18 15:30 Negative (Negative) 12/13/18 15:30 Negative (Negative) 12/13/18 15:30 Negative (Negative) 12/13/18 15:30 0.2 EU/dL (Up TO 0.2) 12/13/18 15:30 Ur Leukocyte Esterase Trace (Negative) H 12/13/18 15:30 0-2 (0-2) 12/13/18 15:30 0-2 HPF (0-5) 12/13/18 15:30 Ur Epithelial Cells Moderate HPF (Negative) 12/13/18 15:30 Negative HPF (Negative) 12/13/18 15:30 Moderate HPF (Negative) 12/13/18 15:30 Negative LPF (Negative) 12/13/18 15:30 Negative (Negative) 12/13/18 15:30 Ur Culture Indicated? No/sq. contamination 12/13/18 15:30 100 mg/dL (Negative) 12/13/18 15:30 4 12/13/18 16:33 Colorless 12/13/18 16:33 Clear 12/13/18 16:33 3 /mm3 (0-5) 12/13/18 16:33 1 /mm3 (0-5) 12/13/18 16:33 CSF Diff Comment 12/13/18 16:33 81 mg/dL (40-70) H 12/13/18 16:38 39 mg/dL (15-45) 12/13/18 16:33 Negative (Negative) 12/13/18 15:30 Negative (Negative) 12/13/18 15:30 Ur Barbiturates Screen Negative (Negative) 12/13/18 15:30 Ur Tricyclics Screen Positive (Negative) 12/13/18 15:30 Ur Amphetamines Screen Negative (Negative) 12/13/18 15:30 U Benzodiazepines Scrn Negative (Negative) 12/13/18 15:30 Negative (Negative) 12/13/18 15:30 Ur THC Screen Positive (Negative) 12/13/18 15:30 Ethyl Alcohol < 3.0 mg/dL (<3) 12/13/18 13:05
[2018-12-14] MEDS: Enoxaparin 40 MG/0.4 ML SYR SC (15:13)
[2018-12-14] MEDS: POTASSIUM CHLORIDE 20 MEQ, POTASSIUM CHLORIDE 10 MEQ 30 MEQ PO (15:14)
[2018-12-14] MEDS: Normal Saline Flush 10 ML SYR IVP (15:35)
[2018-12-14 15:36] VITALS: BP 147/79; PULSE 67; RESP 18; TEMP 37; O2SAT 96
[2018-12-14] MEDS: Budesonide/Formoterol 160/4.5 6 GM 60 PUFF INH IH (19:11)
[2018-12-14 19:23] VITALS: BP 153/93; PULSE 70; RESP 17; TEMP 36.5; O2SAT 96
[2018-12-14 23:48] VITALS: BP 164/82; PULSE 84; RESP 18; TEMP 36.4; O2SAT 97
[2018-12-15] MEDS: THIAMINE 500 MG in Normal Saline 100 ML 200 MG IVPB ×2 (00:39→08:37)
[2018-12-15] MEDS: Normal Saline Flush 10 ML SYR IVP ×2 (00:54→08:37)
[2018-12-15 03:21] VITALS: BP 151/89; PULSE 82; RESP 16; TEMP 36.1; O2SAT 97
[2018-12-15 07:04] LABS: Abs Immature Grans 0.02 k/cumm (0.0-0.09); Absolute Basophil Count 0.01 k/cumm (0.0-0.2); Absolute Eosinophil Count 0.23 k/cumm (0.0-0.7); Absolute Lymphocyte Count 1.14 k/cumm (1.2-3.4); Absolute Monocyte Count 0.47 k/cumm (0.11-0.7); Absolute Neutrophil Count 7.88 k/cumm (1.2-6.7); Basophils % 0.1; Eosinophils % 2.4; HCT 47.7 % (36.0-46.0); HGB 15.8 g/dL (12.0-15.5); Immature Grans % 0.2; Lymphocytes % 11.7; Mean Corp. HGB Concentration 33.1 g/dL (32.0-36.0); Mean Corpuscular Hemoglobin 30.4 pg (27.0-33.0); Mean Corpuscular Volume 91.7 fL (80-95); Mean Platelet Volume 9.5 fL (8.0-11.0); Monocytes % 4.8; Neutrophils % 80.8; Platelet Count 269 x1000/uL (130-400); RBC Distribution Width 13.4 % (11.7-14.6); White Blood Cell Count 9.75 k/cumm (4.4-10.8)
[2018-12-15 07:22] LABS: ALT 16 U/L (14-59); AST 14 U/L (15-37); Albumin 3.7 g/dL (3.4-5.0); Alkaline Phosphatase 109 U/L (46-116); Anion Gap 12.4 mmol/L (3-11); BUN 4 mg/dL (7-18); Bilirubin, Total 0.5 mg/dL (0.2-1.0); CO2 25.6 mmol/L (21.0-32.0); CREATININE 0.47 mg/dL (0.55-1.02); Calcium 9.1 mg/dL (8.5-10.1); Chloride 99 mmol/L (98-107); Glucose 103 mg/dL (70-100); Magnesium 1.6 mg/dL (1.8-2.4); Potassium 3.6 mmol/L (3.5-5.1); Sodium 137 mmol/L (136-145); Total Protein 6.9 g/dL (6.4-8.2)
[2018-12-15] MEDS: Budesonide/Formoterol 160/4.5 6 GM 60 PUFF INH IH ×2 (07:51→19:35)
[2018-12-15 08:02] VITALS: BP 138/89; PULSE 73; RESP 18; TEMP 36.2; O2SAT 99
[2018-12-15] MEDS: Omeprazole 20 MG CAPCR 40 MG PO (08:37)
[2018-12-15] MEDS: Acetaminophen 325 MG TAB PO (08:50)
[2018-12-15 09:03] LABS: Bilirubin Negative (Negative); Blood Negative (Negative); Clarity Sl Cloudy (Clear); Glucose Negative (Negative); Ketones Trace mg/dL (Negative); Leukocyte Esterase Negative (Negative); Nitrite Negative (Negative); Urobilinogen 0.2 EU/dL (Up TO 0.2)
[2018-12-15] MEDS: Potassium Chloride 20 MEQ TABCR 40 MEQ PO (09:53)
[2018-12-15] MEDS: MAGNESIUM SULFATE 2 GM/50 ML BAG IVPB (09:53)
[2018-12-15 12:04] VITALS: BP 125/77; PULSE 72; RESP 18; TEMP 36.7; O2SAT 97
[2018-12-15] MEDS: Gadoterate meglumine 20 ML VIAL 11 ML IVP (12:46)
--- NOTE | 2018-12-15 12:55 | DI.MRI_ITS ---
SYMPTOMS/DIAGNOSIS: ENCEPHALOPATHY MRI OF THE BRAIN: Comparison is made with head CT dated . T 2 sagittal, T 1, T 2, FLAIR, diffusion and gradient echo axial and post Gadolinium T 1 axial and coronal sequences were performed. The exam is mildly limited by patient motion. There is no significant atrophy. There is scattered small foci of high signal in the white matter which may be secondary to microvascular disease. No acute infarct, hemorrhage or mass is seen. There are no abnormal areas of restricted diffusion. The ventricles are normal in size. The vascular flow voids appear intact. There are no abnormal areas of enhancement. IMPRESSION: Mild scattered foci consistent with microvascular disease. No acute abnormality.
--- NOTE | 2018-12-15 12:56 | PDOC.CMPRO ---
Care Management Progress Note S/O: Per MD, Joann is much more alert and communicating appropriately this morning. CM attempted to meet with her but Joann was soundly sleeping. Anticipate Joann will return home when ready per MD. Per RN, Joann may require outpatient follow up for wound care. CM to discuss discharge plan with Joann and Austin when clearer plan is in place. CM met with Austin, discussion central to relocation to [place], referral to increased services in [place] and discharge planning for 12/16/18. Austin reported MIGUEL ANGEL Estevez discussed outpatient wound care needs. Austin reported transport would be a barrier due to his work schedule. CM agreed to connect with RCT A: 58 year old female admitted to [facility] 12/13/18 for Encephalopathy, Leukocytosis P: Anticipate Joann will return home when ready per MD. Undetermined additional service recommendations at this time, per RN anticipate outpatient wound care follow up. CM continues to follow.
--- NOTE | 2018-12-15 13:37 | WOUNDCARE ---
Wound Care Report Pt is a 58 year old female consulted for chronic lower tib/fib wound. Admitted to hospital for metabolic encephalopathy. Chart reviewed, including H&P, recent labs, and vital signs, and other providers? reports. Medical Hx and labs pertinent to wound healing: Alcohol abuse, nicotine abuse Wound Hx if applicable Wound is 3 years old, developing over time, initially sustained with a closed Fx from a fall in December 2015 from what I can gather from her medical record. Complicated by probable infection (bone scan in July 2017 showed uptake in all 3 phases in the distal tibia), non-adherence to Tx plan (Pt admittedly picks at wound), and documented alcohol and nicotine abuse. Pt has been followed by Dr. Calvillo from orthopedics over the last 3 years on and off by what I can tell from clinic/progress notes, and [facility] plastic surgery team for bipedicled fasciocutaneous advancement flap placement in October 2017. MRI was performed in August 2017 (ordered by Emily Mcpherson MD, orthopedic surgeon from [facility]) for chronic osteomyelitis and surgical planning, which showed: MRI report from 08/22/17 IMPRESSION: 1. Findings of a prior fracture deformity involving the distal tibia. Findings of prior orthopedic instrumentation. 2. Abnormal signal seen within the distal tibia at the site of previous fracture. Soft tissue edema and question of a small abscess anterior to the fracture site extending to the skin surface. The findings are suspicious for osteomyelitis. 3. Abnormal marrow signal in the distal tibia. It appears to begin approximately 12 cm. superior to the tibial plafonds and extends inferiorly to about 3 cm. above the tibial plafonds. I am recommending follow-up with [facility] plastic surgery team who did Pts Flap placement. Unsure the last time Pt was seen at [facility]. Surgical History Debridement, Soft Tissue (06/10/15)- [facility] Dr De Guzman: debridment and washout of multiple right thigh lacerations with complex closure flap coverage (11/07/17)- bipedicled fasciocutaneous advancement flap coverage of left lower extremtiy wound, STSG and wound vac placement. [facility] plasti surg. 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 Surrounding tissue brown, no edema, Exudate Minimal Serous Odor none Indicators of infection present? see wound Hx description. Chronic osteomyelitis documented. Unsure of present status. Probable biofilm based on chronicity of wound. Patients Mobility status independent Nutritional Status- nutrition consult recommended for wound healing. Circulatory status palpable pulses, capillary refill 2 seconds, ankle brachial index (JOHN) unable to obtain d/t Pt?s restlessness. Pain-Pt reports burning pain at wound site Medications altering healing- N/A Response to care/treatment plan patient non-adherent self admittedly picks at wound, doesn?t leave dressings on ?because the wound itches.? Referrals recommend follow-up with [facility] surgical team that was managing her flap in October 2017 Physician/nurse practitioner notification Recommendations: Cleanse wound with NS. Moisten Promogran w/NS until gel forms, apply directly to wound bed, cover with mepilex w/border. Change every 3 days and PRN. Also recommend follow-up with [facility] surgical team that was managing her flap in October 2017 Thank you for the consult.
--- NOTE | 2018-12-15 13:49 | PGE_ITS ---
Date of Service Date of service: 12/15/18 Time of Service: 13:49 Assessment and Plan (1) Altered mental status: Current visit: Yes Status: Acute Etiology remains unclear. - No reported change in medications, but patient is chronically on Buprenorphine. - No evidence of drugs of abuse on limited Urine Drug Screen (other than THC). - No gross electrolyte abnormality, and TSH normal. Not significantly hyper/hypoglycemic. Also not hypoxic. - No evidence of liver or kidney failure - not uremic, and ammonia levels are normal. - Although altered, the patient does not appear to be withdrawing from alcohol - BAL undetectable, no tremors or hallucinations, not diaphoretic, tachycardic, or hypertensive. - No evidence of infection with a negative urinalysis, CXR, and LP. Blood and CSF cultures negative. Remains afebrile, and with leukocytosis resolved overnight. Continue to hold off antibiotics. - Although ABG was not obtained, no evidence of significant gap and bicarb is normal - doubt hypercapnia. Will continue to monitor - MRI performed with read pending. Neuro input is appreciated. Cannot rule out psychiatric etiology as well. (2) Left lower lobe pulmonary nodule: Current visit: Yes Status: Acute Consider CT chest, either while hospitalized or as outpatient. (3) COPD (chronic obstructive pulmonary disease): Current visit: No Status: Acute Appears quiescent. Monitor. (4) Alcohol abuse: Current visit: No Status: Acute Reportedly in remission. (5) DVT prophylaxis: Current visit: Yes Status: Acute SC Enoxaparin. Subjective Interval history since last seen: 58 year old woman with a prior history of Alcohol abuse reportedly in remission, admitted from [facility] Emergency Department on 12/13 with a diagnosis of altered mental status. Ms. Grant has a prior history of EtOH abuse withdrawl in the past, as well as seizures likely associated with this. Her other history includes frequent prior falls resulting in fractures, COPD, HTN, CAD (by records), depression, anxiety, and GERD. Her alcohol abuse is reportedly in remission. The patient was found by law enforcement wandering the streets and attempting to climb over a fence. She was found by EMS to be confused and disoriented, and transported to the ED for further evaluation. Her work-up was remarkable for a leukocytosis, mild hypomagnesemia, elevated CRP, undetectable BAL, and urinalysis that was negative for infection. She was afebrile. CXR was obtained and showed a new 0.7 cm LLE pulmonary nodule and old rib fracutres, but without any infiltrates or other acute abnormalities. CT of her head was negative for any acute findings as well. Her UDS was positive for Tricyclics and THC only. Given the uncertain nature of her symptoms, and her complaints of headache LP was performed and negative for infection. She was referred for admission for further evaluation and treatment. This morning Ms. Grant appears awake and alert, much more cooperative but still not oriented to time, according to her answers. No focal deficits are noted. Tick Panel, HIV, Rheum panel, and VDRL are still pending. Per discussion with patient's son, it appears that she has had a longstanding history of depression, anxiety, and problems with abandomnet. The son was recently promoted at work and will be relocating to [facility], and had discussed with his mother (who lives with him) that there may be a need for alternate housing for her in the near future. He reportedly discussed this with her last week, and reports that he discovered a change in her overall demeanor after that, and also found that she may have had a relapse with alcohol as well. No overnight events reported. She remains afebrile. Exam Narrative Exam Narrative: General: Patient appears comfortable, Awake and alert - oriented to place and person but not time, NAD Neck: Supple CV: Regular, nontachycardic, S1S2, No rubs, murmurs, or gallops. Pulmonary: Clear to auscultation bilaterally, no crackles, wheezing, or rhonchi Abdomen: + Bowel Sounds, soft, nontender, nondistended Vascular: No lower extremity edema Neurologic: No tremors Psych: Normal mood and affect. Objective Objective Clinical Data: Abnormal lab results 12/15/18 12/15/18 12/15/18 Range/Units 06:15 06:15 08:50 Hgb 15.8 H (12.0-15.5) g/dL Hct 47.7 H (36.0-46.0) % Absolute Neutrophils 7.88 H (1.2-6.7) k/cumm Absolute Lymphocytes 1.14 L (1.2-3.4) k/cumm Anion Gap 12.4 H (3-11) mmol/L BUN 4 L (7-18) mg/dL Creatinine 0.47 L (0.55-1.02) mg/dL Glucose 103 H (70-100) mg/dL Magnesium 1.6 L (1.8-2.4) mg/dL AST 14 L (15-37) U/L Urine Ketones Trace H (Negative) mg/dL Vital Signs Temperature 36.7 C 12/15/18 12:04 Temperature Source Tympanic 12/15/18 12:04 Pulse 72 12/15/18 12:04 Pulse Rhythm Regular 12/15/18 10:22 Pulse 80 12/13/18 16:10 Respiratory Rate 18 12/15/18 12:04 Respiratory Effort 12/15/18 10:22 Respiratory Depth Normal 12/15/18 10:22 Respiratory Pattern Normal 12/15/18 10:22 Blood Pressure 125/77 12/15/18 12:04 Blood Pressure Mean 92 12/13/18 16:00 Blood Pressure Position Supine 12/13/18 12:46 Pulse Oximetry 97 12/15/18 12:04 Oxygen Delivery Method Room Air 12/15/18 12:04 Oxygen Flow Rate 0 12/15/18 12:04 Pain Level 0 12/15/18 12:04 Intake & Output 12/14/18 12/15/18 12/15/18 23:59 11:59 23:59 Intake Total 105 / 415 1320 / 1320 Output Total 200 / 200 Balance -95 / 215 1320 / 1320 Weight 56.3 kg Intake: IV 105 / 415 220 / 220 Oral 1100 / 1100 Output: Urine 200 / 200 Other: Urine Color Yellow Yellow Urine Appearance Clear Clear Urine Odor Normal Normal Comment pt got out of bed and voided on the floor and then got back into bed. Stool Size Moderate Stool Characteristics Liquid Brown Voiding Methods Incontinent Diaper Incontinent Laboratory Results WBC 9.75 k/cumm (4.4-10.8) 12/15/18 06:15 RBC 5.20 m/cumm (4.00-5.20) 12/15/18 06:15 Hgb 15.8 g/dL (12.0-15.5) H 12/15/18 06:15 Hct 47.7 % (36.0-46.0) H 12/15/18 06:15 MCV 91.7 fL (80-95) 12/15/18 06:15 MCH 30.4 pg (27.0-33.0) 12/15/18 06:15 MCHC 33.1 g/dL (32.0-36.0) 12/15/18 06:15 RDW 13.4 % (11.7-14.6) 12/15/18 06:15 Plt Count 269 x1000/uL (130-400) 12/15/18 06:15 MPV 9.5 fL (8.0-11.0) 12/15/18 06:15 Immature Gran % 0.2 12/15/18 06:15 80.8 12/15/18 06:15 Cancelled 12/14/18 06:35 11.7 12/15/18 06:15 Atypical Lymphs % Cancelled 12/14/18 06:35 4.8 12/15/18 06:15 2.4 12/15/18 06:15 0.1 12/15/18 06:15 Cancelled 12/14/18 06:35 Cancelled 12/14/18 06:35 Cancelled 12/14/18 06:35 Absolute Neutrophils 7.88 k/cumm (1.2-6.7) H 12/15/18 06:15 Absolute Lymphocytes 1.14 k/cumm (1.2-3.4) L 12/15/18 06:15 Absolute Monocytes 0.47 k/cumm (0.11-0.7) 12/15/18 06:15 Absolute Eosinophils 0.23 k/cumm (0.0-0.7) 12/15/18 06:15 Absolute Basophils 0.01 k/cumm (0.0-0.2) 12/15/18 06:15 Nucleated RBCs Cancelled 12/14/18 06:35 Cancelled 12/14/18 06:35 Cancelled 12/14/18 06:35 RBC Morphology Cancelled 12/14/18 06:35 Cancelled 12/14/18 06:35 Cancelled 12/14/18 06:35 Absent 12/13/18 16:33 Cancelled 12/14/18 06:35 Cancelled 12/14/18 06:35 Cancelled 12/14/18 06:35 Cancelled 12/14/18 06:35 Cancelled 12/14/18 06:35 Cancelled 12/14/18 06:35 Cancelled 12/14/18 06:35 Cancelled 12/14/18 06:35 Cancelled 12/14/18 06:35 Cancelled 12/14/18 06:35 Cancelled 12/14/18 06:35 Cancelled 12/14/18 06:35 Acanthocytes (Spur) Cancelled 12/14/18 06:35 Cancelled 12/14/18 06:35 ESR 8 mm/hr (0-30) 12/14/18 08:06 PT 9.9 sec (9.3-11.0) 12/14/18 06:35 INR 1.0 (0.9-1.1) 12/14/18 06:35 Sodium 137 mmol/L (136-145) 12/15/18 06:15 Potassium 3.6 mmol/L (3.5-5.1) 12/15/18 06:15 Chloride 99 mmol/L (98-107) 12/15/18 06:15 Carbon Dioxide 25.6 mmol/L (21.0-32.0) 12/15/18 06:15 12.4 mmol/L (3-11) H 12/15/18 06:15 BUN 4 mg/dL (7-18) L 12/15/18 06:15 0.47 mg/dL (0.55-1.02) L 12/15/18 06:15 >= 60.00 (mL/min/1.73m2) 12/15/18 06:15 Glucose 103 mg/dL (70-100) H 12/15/18 06:15 Calcium 9.1 mg/dL (8.5-10.1) 12/15/18 06:15 Magnesium 1.6 mg/dL (1.8-2.4) L 12/15/18 06:15 0.5 mg/dL (0.2-1.0) 12/15/18 06:15 AST 14 U/L (15-37) L 12/15/18 06:15 ALT 16 U/L (14-59) 12/15/18 06:15 109 U/L (46-116) 12/15/18 06:15 19 umol/L (11-32) 12/13/18 23:00 3.66 mg/dL (0.0-0.3) H 12/14/18 06:35 6.9 g/dL (6.4-8.2) 12/15/18 06:15 3.7 g/dL (3.4-5.0) 12/15/18 06:15 TSH 0.73 uIU/mL (0.36-3.74) 12/14/18 06:35 Yellow (Yellow) 12/15/18 08:50 Sl cloudy (Clear) 12/15/18 08:50 7.0 (5-8) 12/15/18 08:50 Ur Specific [place] 1.020 (1.005-1.025) 12/15/18 08:50 Negative mg/dL (Negative) 12/15/18 08:50 Trace mg/dL (Negative) H 12/15/18 08:50 Negative (Negative) 12/15/18 08:50 Negative (Negative) 12/15/18 08:50 Negative (Negative) 12/15/18 08:50 0.2 EU/dL (Up TO 0.2) 12/15/18 08:50 Ur Leukocyte Esterase Negative (Negative) 12/15/18 08:50 0-2 (0-2) 12/13/18 15:30 0-2 HPF (0-5) 12/13/18 15:30 Ur Epithelial Cells Moderate HPF (Negative) 12/13/18 15:30 Negative HPF (Negative) 12/13/18 15:30 Moderate HPF (Negative) 12/13/18 15:30 Negative LPF (Negative) 12/13/18 15:30 Negative (Negative) 12/13/18 15:30 Ur Culture Indicated? No/sq. contamination 12/13/18 15:30 Negative mg/dL (Negative) 12/15/18 08:50 4 12/13/18 16:33 Colorless 12/13/18 16:33 Clear 12/13/18 16:33 3 /mm3 (0-5) 12/13/18 16:33 1 /mm3 (0-5) 12/13/18 16:33 CSF Diff Comment 12/13/18 16:33 81 mg/dL (40-70) H 12/13/18 16:38 39 mg/dL (15-45) 12/13/18 16:33 Negative (Negative) 12/13/18 15:30 Negative (Negative) 12/13/18 15:30 Ur Barbiturates Screen Negative (Negative) 12/13/18 15:30 Ur Tricyclics Screen Positive (Negative) 12/13/18 15:30 Ur Amphetamines Screen Negative (Negative) 12/13/18 15:30 U Benzodiazepines Scrn Negative (Negative) 12/13/18 15:30 Negative (Negative) 12/13/18 15:30 Ur THC Screen Positive (Negative) 12/13/18 15:30 Ethyl Alcohol < 3.0 mg/dL (<3) 12/13/18 13:05
[2018-12-15 15:33] VITALS: BP 153/92; PULSE 68; RESP 18; TEMP 36.4; O2SAT 99
--- NOTE | 2018-12-15 16:17 | W.NEUROCONSU ---
Date of service: 12/15/18 Time of Service: 16:18 Assessment and Plan (1) Encephalopathy: Current visit: Yes Status: Acute Ms. Grant is a 58 year-old, right-handed woman with a complicated PMH of opioid dependence, ETOH abuse currently reportedly sober, and depression with suicidal ideation who was admitted with a 1-week history of altered mental status. She has had an extensive negative work-up including MRI brain, CSF studies, and multiple laboratory studies, though a few are still pending (B12, RPR, HIV, Lyme/Tick). It is not clear what the cause of her encephalopathy is. The acute/subacute onset 1 week ago goes against a neurodegnerative state, such as dementia. She is quite alert, which goes against a delirium. She had a seemingly traumatic discussion with her son, prior to onset of her current symptoms, and thus a psychiatric process also remains in the differential. However, she reminds me of a Wernicke's encephalopathy. Though, her history is rather odd that she would become thiamine deficient at this time when sober rather than during her many years of ETOH abuse. I agree with continued high-dose thiamine supplementation. I would consider psychiatric consultation. I agree with placement. She should follow-up in the neurology clinic in 4-6 weeks for re-evaluation. History of Present Illness Chief Complaint: Altered mental status Narrative: Handedness: right. HPI: Ms. Grant is a 58 year-old woman with a PMH of opioid dependence, ETOH abuse s/p recent inpatient treatment and reportedly sober, hypertension, hyperlipidemia, coronary artery disease, and chronic pain. She has a history of depression and suicidal ideation. She also has a history of multiple falls related to ETOH which have resulted in numerous fractures which have been complicated by poor heal requiring skin grafts as well as osteomyelitis. Unfortunately, Ms. Grant is not able to provide any history today. The story is taken from the chart and from discussion with the primary team. Ms. Grant was found by local PD on 12/13/[address] and attempting to jump a fence. She was evaluated by EMS who noted concerns and brought her to [facility] where she was admitted for confusion. In the ER she was able to provide the history that she was jumping the fence to get to a store and going over the fence was the most direct route. She was oriented to person and place. She initially refused LP, but then later complied. There were reports of her walking around the ER without her clothes on. She has since undergone an extensive work-up as below. Per reports, she remains not at baseline. One week ago, her son whom she lives with, informed the patient that he got a job out of town and that she would be getting new living arrangements. Her behavior and memory changes started after that conversation including leaving the burner on, possible relapsing on ETOH (empty cans were seen), and other odd behavior such that the son removed his cat from their home due to concerns about the cats safety. Per report, she has no prior history of cognitive problems. Per the notes, she presented to the ER in June requesting help with alcohol cessation. She was referred to outpatient programs and reportedly pursued treatment. She remains quite altered. Her centrally acting medications have been held without any change (suboxone, gabapentin, amitriptyline). She has been receiving high dose IV thiamine since admission without change (she has pulled her IV out x3 as of today). She cannot tell me why she is in the hospital. She was not oriented to time or place, though she new it was November. She was unable to recall her birthday and stated her age was 49. She reports 10 years of ETOH sobriety with a strong FH of ETOH abuse in all of her family members including her 3 sons. 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 She could not tell me why she was on disability. Per nursing, she has been having diarrhea with incontinence. She has also been pacing more and seems a bit more anxious. They are attributing this to suboxone withdrawal. She has had no fevers. Work-up: -CT head: no acute. Mild generalized cerebral atrophy. I reviewed these images personally. -MRI brain: no acute. Mild generalized cerebral atrophy with chronic small vessel disease changes. I reviewed these images personally. -LP: 3 WBC, 1 RBC, 81 glucose, 39 protein. -WBC 22 (neutrophils 19.88; these have been high in the past) --> 9.75 -Hgb 17.1 --> 15.8 (other than this admission; she has always been ANEMIC) -Mag 1.4 --> 1.6 (S/p IV Mg infusion) -Tox screen: +THC, TCA. ETOH 0. -TSH normal. -UA negative. -RPR, HIV, Lyme/Tick panel all pending Consults Requesting physician: Skip Mauro Review of Systems Review of Systems Unobtainable due to mental status [facility] Medical History Alcohol abuse Anxiety and depression Chronic pain Shoulder s/p fx's COPD (chronic obstructive pulmonary disease) GERD (gastroesophageal reflux disease) Hyperlipidemia Hypertension Surgical History Debridement, Soft Tissue (06/10/15) [facility] Dr De Guzman: debridment and washout of multiple right thigh lacerations with complex closure flap coverage (11/07/17) bipedicled fasciocutaneous advancement flap coverage of left lower extremtiy wound, STSG and wound vac placement. [facility] plasti surg. 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 pt is confused at the moment. But prior H&P have documented heavy alcohol use and occasional marijiuana use Household members: children What is your relationship status?: Panel score (0-1 are the most socially isolated patients): 0 Do you feel safe at home: Yes Do you feel safe in your relationship?: Yes Visit Medication and Allergies Active Medications Generic Name Dose Route Start Last Admin Trade Name Freq PRN Reason Stop Dose Admin Acetaminophen 325 - 650 mg 12/13/18 18:14 12/15/18 08:50 Tylenol PO 650 mg Q4H PRN PRN Administration Al Hydrox/Mg Hydrox/Simethicone 30 ml 12/13/18 18:14 Mylanta Liquid PO Q2H PRN PRN Albuterol Sulfate 1 - 2 puff 12/14/18 07:41 Ventolin Hfa IH Q6H PRN PRN shortness of breath or wheezing Budesonide/Formoterol Fumarate 2 puff 12/14/18 08:30 12/15/18 07:51 Symbicort 160/4.5 Mcg Inhaler IH 2 puff BID DEN Administration Dimethicone/Zinc Oxide 0 gm 12/13/18 18:14 Sally Protect Cream TP PRN PRN Docusate Sodium 100 mg 12/13/18 18:14 Colace PO TID PRN PRN Gadoterate Meglumine 11 ml 12/15/18 12:45 12/15/18 12:46 Dotarem IVP 01/14/19 23:59 11 ml DIRECTED DEN Administration Thiamine HCl 500 mg/ Sodium 105 mls @ 200 mls/hr 12/14/18 08:00 12/15/18 09:55 Chloride IVPB 12/16/18 16:32 Infused Q8H DEN Infusion IV Miscellaneous Supplies 1 each 12/13/18 13:00 IV DIRECTED DEN Magnesium Hydroxide 30 ml 12/13/18 18:14 Milk Of Magnesia PO DAILY PRN PRN Nicotine 0 cartridge 12/14/18 08:41 12/14/18 15:15 Nicotrol 30 Cartridges/Pack IH 1 inh Q2H PRN PRN Administration Omeprazole 40 mg 12/15/18 07:30 12/15/18 08:37 Prilosec PO 40 mg DAILY@0730 DEN Administration Polyethylene Glycol 17 gm 12/13/18 18:14 Miralax PO DAILY PRN PRN Constipation Sodium Chloride 0 ml 12/13/18 12:58 12/15/18 08:37 Saline Flush 10 Ml Syringe IVP 10 ml PRN PRN Administration Allergies latex Allergy (Intermediate, Unverified 09/23/18 07:42) burning Penicillins Allergy (Intermediate, Unverified 09/23/18 07:42) Hives Exam Narrative Exam Narrative: Physical Exam: Gen: Patient of apparent stated age, NAD Head and face: no facial or cranial abnormalities Neck: Supple, no meningismus, no occipital tenderness CV: + S1, S2, RRR, no murmur Resp: CTA B/L Abd: soft, nontender, nondistended Ext: No edema. No clubbing or cyanosis. Neuro Exam: Language: fluency, naming, repetition, and comprehension intact; Mental Status: AAO to self only, unable to provide history of recent events; remote events also unreliable; Speech: no dysarthria Cranial nerves: Funduscopy: not performed CN II: visual munoz intact CN III, IV, : extraocular movements intact, no nystagmus, pupils symmetric and reactive to light CN V: face sensation intact to PP CN VII: no facial asymmetry noted CN VIII: hearing intact bilaterally CN IX, X: palate rises symmetrically CN XI: trapezius/SCM 5/5 bilaterally CN XII: protrudes tongue symmetrically Sensory: intact to PP in all extremities; other modalities unable to be tested due to mental status Motor: bulk and tone intact. Fine motor movements intact bilaterally. No pronator drift. Strength 5/5 throughout including the deltoids, biceps, triceps, wrist extensors, hip flexors, knee flexors, knee extensors, ankle flexors, and ankle extensors. Reflexes: 2+ at the biceps, triceps, and brachioradialis; reduced at the patella and achilles tendons bilaterally; toes down going bilaterally; Coordination: FTN and HTS intact bilaterally Gait: normal gait; MMSE 1.Orientation a.Place (Country, State, City, Building, Floor) 2/5 b.Time (Year, Season, Month, Date, day of the week) 1/5 2.Immediate Recall (3 objects) 3/3 3.Attention (Serial 7s or spell world backwards) 0/5 - would not try 4.Delayed Recall (3 objects) 1/3 5.Language a.Naming (watch and pencil) 2/2 b.Repetition 1/ c.Comprehension (3-step command) 2/3 - 2 attempts d.Reading (Close your eyes) 0/0 e.Writing (sentence) 0/0 6.Visuospatial/Executive (copy drawing) 0/0 TOTAL: 04/09 Results Last Vital Signs Temp 36.4 C L 12/15/18 15:33 Pulse 68 12/15/18 15:33 Resp 18 12/15/18 15:33 BP 153/92 H 12/15/18 15:33 Pulse Ox 99 12/15/18 15:33 Labs : 12/15/18 06:15 12/15/18 06:15 Laboratory Results - last 24 hr 12/15/18 12/15/18 12/15/18 06:15 06:15 08:50 WBC 9.75 RBC 5.20 Hgb 15.8 H Hct 47.7 H MCV 91.7 MCH 30.4 MCHC 33.1 RDW 13.4 Plt Count 269 MPV 9.5 Immature Gran % 0.2 Neutrophils % 80.8 Lymphocytes % 11.7 Monocytes % 4.8 Eosinophils % 2.4 Basophils % 0.1 Absolute Neutrophils 7.88 H Absolute Lymphocytes 1.14 L Absolute Monocytes 0.47 Absolute Eosinophils 0.23 Absolute Basophils 0.01 Sodium 137 Potassium 3.6 Chloride 99 Carbon Dioxide 25.6 Anion Gap 12.4 H BUN 4 L Creatinine 0.47 L Estimated GFR/1.73 m2 >= 60.00 Glucose 103 H Calcium 9.1 Magnesium 1.6 L Total Bilirubin 0.5 AST 14 L ALT 16 Alkaline Phosphatase 109 Total Protein 6.9 Albumin 3.7 Urine Color Yellow Urine Clarity Sl cloudy Urine pH 7.0 Ur Specific [place] 1.020 Urine Protein Negative Urine Ketones Trace H Urine Blood Negative Urine Nitrite Negative Urine Bilirubin Negative Urine Urobilinogen 0.2 Ur Leukocyte Esterase Negative Urine Glucose Negative
[2018-12-15] MEDS: Thiamine 100 MG TAB 200 MG PO (19:35)
[2018-12-15 19:36] VITALS: BP 143/88; PULSE 68; RESP 18; TEMP 36.4; O2SAT 97
[2018-12-15 23:19] VITALS: BP 131/86; PULSE 66; RESP 18; TEMP 36.6; O2SAT 98
[2018-12-16 03:25] VITALS: BP 168/104; PULSE 73; RESP 18; TEMP 36.2; O2SAT 99
[2018-12-16 07:17] LABS: Abs Immature Grans 0.04 k/cumm (0.0-0.09); Absolute Basophil Count 0.01 k/cumm (0.0-0.2); Absolute Eosinophil Count 0.33 k/cumm (0.0-0.7); Absolute Lymphocyte Count 1.44 k/cumm (1.2-3.4); Absolute Monocyte Count 0.55 k/cumm (0.11-0.7); Absolute Neutrophil Count 5.58 k/cumm (1.2-6.7); Basophils % 0.1; Eosinophils % 4.2; HCT 46.7 % (36.0-46.0); HGB 15.6 g/dL (12.0-15.5); Immature Grans % 0.5; Lymphocytes % 18.1; Mean Corp. HGB Concentration 33.4 g/dL (32.0-36.0); Mean Corpuscular Hemoglobin 30.2 pg (27.0-33.0); Mean Corpuscular Volume 90.3 fL (80-95); Mean Platelet Volume 9.9 fL (8.0-11.0); Monocytes % 6.9; Neutrophils % 70.2; Platelet Count 264 x1000/uL (130-400); RBC 5.17 m/cumm (4.00-5.20); RBC Distribution Width 13.3 % (11.7-14.6); White Blood Cell Count 7.95 k/cumm (4.4-10.8)
[2018-12-16 07:35] LABS: ALT 20 U/L (14-59); AST 12 U/L (15-37); Albumin 3.7 g/dL (3.4-5.0); Alkaline Phosphatase 103 U/L (46-116); Anion Gap 10.3 mmol/L (3-11); BUN 3 mg/dL (7-18); Bilirubin, Total 0.4 mg/dL (0.2-1.0); CO2 28.7 mmol/L (21.0-32.0); CREATININE 0.56 mg/dL (0.55-1.02); Calcium 9.1 mg/dL (8.5-10.1); Chloride 96 mmol/L (98-107); Glucose 95 mg/dL (70-100); Magnesium 1.9 mg/dL (1.8-2.4); Potassium 4.1 mmol/L (3.5-5.1); Sodium 135 mmol/L (136-145); Total Protein 7.1 g/dL (6.4-8.2)
[2018-12-16 07:45] VITALS: BP 142/94; PULSE 80; RESP 18; TEMP 36; O2SAT 99
--- NOTE | 2018-12-16 07:48 | NUR.NOTE ---
Nursing Note: 0745 Spoke with nurse at [facility] and confirmed that patient has been given two doses of 8mg/2mg suboxone to equal 16 mg and has been on that dose since August 05.
[2018-12-16 08:09] LABS: Vitamin B12 525 pg/mL (193-986)
[2018-12-16] MEDS: Omeprazole 20 MG CAPCR 40 MG PO (08:36)
[2018-12-16] MEDS: Buprenorphine/Naloxone 8 mg/2 mg FILM 2 EACH SL (08:36)
[2018-12-16] MEDS: Thiamine 100 MG TAB 200 MG PO (08:36)
[2018-12-16] MEDS: Budesonide/Formoterol 160/4.5 6 GM 60 PUFF INH IH (09:13)
[2018-12-16 10:14] LABS: HIV-1/2 Ag & Ab Screen Negative (NEGAT)
[2018-12-16 11:00] LABS: Lyme Ab w Rflx to Lyme Confirm Negative
[2018-12-16 11:02] LABS: Syphilis Serology (RPR) Negative (Negative)
--- NOTE | 2018-12-16 11:09 | PHARADMIT ---
Admission Pharmacy Clinical Review ENCEPHALOPATHY, LEUKOCYTOSIS Code Status Full Code Current Weight Wgt-48.6 kg Renally Cleared and Narrow Therapeutic Index Meds CrCl~ 58 mL/min Meds-OK QTc Value / Action Taken QTc-452 BP Control, Fever BP-142/94 Electrolytes reviewed Na-138 K+4.1 Mag-1.9 DVT Prophylaxis TEDS, SCDs Opiate Usage / Scheduled Bowel Regimen Ordered Suboxone, Yes Plt/SCr for Heparin / Enoxaparin Plts-264 SCr-0.56 INR for Warfarin inr-1.0 H/H stable, WBC/Bands H&H- 15.6/46.7 WBC- 7.95 Antibiotic appropriateness none Cultures and Sensitivities na Surgical ABX d/c within 24 hr na DM control / Insulin Dosing BG-95 Heart Failure (Check EF%) (LUCINA's, B-Block, Diuretics) none IV to PO Switch No Home Meds Reviewed Yes Home Meds Not Ordered Elavil, Wellbutrin, B-12, Iron, FA, Naloxone [place] Oxycodone, Gabapentin, Meloxicam, Ambien Comments UDS- (+) Tricyclics, THC,
[2018-12-16 11:10] VITALS: BP 131/79; PULSE 69; RESP 19; TEMP 36; O2SAT 97
--- NOTE | 2018-12-16 11:59 | W.PM.PROGNOT ---
Date of Service Date of service: 12/16/18 Time of Service: 11:59 Assessment and Plan (1) Altered mental status: Current visit: Yes Status: Acute Etiology remains unclear. - No reported change in medications, including dose of Buprenorphine. - No evidence of drugs of abuse on limited Urine Drug Screen (other than THC). - No gross electrolyte abnormality, and TSH normal. Not significantly hyper/hypoglycemic. Also not hypoxic. - No evidence of liver or kidney failure - not uremic, and ammonia levels are normal. - Although altered, the patient does not appear to be withdrawing from alcohol - BAL undetectable, no tremors or hallucinations, not diaphoretic, tachycardic, or hypertensive. - No evidence of infection with a negative urinalysis, CXR, and LP. Blood and CSF cultures negative. Remains afebrile, and with leukocytosis resolved overnight. Continue to hold off antibiotics. - Although ABG was not obtained, no evidence of significant gap and bicarb is normal - doubt hypercapnia. - MRI Brain checked and negative. Neurology with potential for Psych vs. Wernicke''s Encephalopathy - recommendations for continuation of Thiamine replacement, and consideration for psychiatric work-up. Discussion with Dr. Serna who has reviewed the case - recommendations for outpatient Psychiatric care. (2) Left lower lobe pulmonary nodule: Current visit: Yes Status: Acute Consider CT chest, either while hospitalized or as outpatient. (3) COPD (chronic obstructive pulmonary disease): Current visit: No Status: Acute Appears quiescent. Monitor. (4) Alcohol abuse: Current visit: No Status: Acute Reportedly in remission. (5) DVT prophylaxis: Current visit: Yes Status: Acute SC Enoxaparin. (6) Discharge planning issues: Current visit: Yes Status: Acute Recommendations for placement given patient's mental status and presentation. Mrs. Grant's son had expressed interest for taking her home and continuing to care for her. Also, due to instructions from Case Management, Adult Protective Services are now involved and will be reviewing this case prior to the determination of final disposition. Subjective Interval history since last seen: 58 year old woman with a prior history of Alcohol abuse reportedly in remission, admitted from [facility] Emergency Department on 12/13 with a diagnosis of altered mental status. Ms. Grant has a prior history of EtOH abuse withdrawl in the past, as well as seizures likely associated with this. Her other history includes frequent prior falls resulting in fractures, COPD, HTN, CAD (by records), depression, anxiety, and GERD. Her alcohol abuse is reportedly in remission. The patient was found by law enforcement wandering the streets and attempting to climb over a fence. She was found by EMS to be confused and disoriented, and transported to the ED for further evaluation. Her work-up was remarkable for a leukocytosis, mild hypomagnesemia, elevated CRP, undetectable BAL, and urinalysis that was negative for infection. She was afebrile. CXR was obtained and showed a new 0.7 cm LLE pulmonary nodule and old rib fracutres, but without any infiltrates or other acute abnormalities. CT of her head was negative for any acute findings as well. Her UDS was positive for Tricyclics and THC only. Given the uncertain nature of her symptoms, and her complaints of headache LP was performed and negative for infection. She was referred for admission for further evaluation and treatment. This morning Ms. Grant continues to appear awake and alert, cooperative but still not oriented to time. No focal deficits are noted, and MRI of the brain was without acute pathology. Tick Panel, HIV, Rheum panel, and VDRL are still pending. Per discussion with patient's son, it appears that she has had a longstanding history of depression, anxiety, and problems with abandomnet. The son was recently promoted at work and will be relocating to [facility], and had discussed with his mother (who lives with him) that there may be a need for alternate housing for her in the near future. He reportedly discussed this with her last week, and reports that he discovered a change in her overall demeanor after that, and also found that she may have had a relapse with alcohol as well. Per neurology evaluation, patient's symptoms may represent Wenicke's, although atypical and unsual presentation, versus a manifestation of her underlying psychiatric disorder. No overnight events reported. She remains afebrile. Exam Narrative Exam Narrative: General: Patient appears comfortable, Awake and alert - oriented to place and person but not time, NAD Neck: Supple CV: Regular, nontachycardic, S1S2, No rubs, murmurs, or gallops. Pulmonary: Clear to auscultation bilaterally, no crackles, wheezing, or rhonchi Abdomen: + Bowel Sounds, soft, nontender, nondistended Vascular: No lower extremity edema Neurologic: No tremors Psych: Normal mood and affect. Objective Objective Clinical Data: Abnormal lab results 12/16/18 12/16/18 Range/Units 06:30 06:30 Hgb 15.6 H (12.0-15.5) g/dL Hct 46.7 H (36.0-46.0) % Sodium 135 L (136-145) mmol/L Chloride 96 L (98-107) mmol/L BUN 3 L (7-18) mg/dL AST 12 L (15-37) U/L Vital Signs Temperature 36.0 C L 12/16/18 11:10 Temperature Source Tympanic 12/16/18 11:10 Pulse 69 12/16/18 11:10 Pulse Rhythm Regular 12/16/18 08:47 Pulse 80 12/13/18 16:10 Respiratory Rate 19 12/16/18 11:10 Respiratory Effort 12/16/18 08:47 Respiratory Depth Normal 12/16/18 08:47 Respiratory Pattern Normal 12/16/18 08:47 Blood Pressure 131/79 12/16/18 11:10 Blood Pressure Mean 92 12/13/18 16:00 Blood Pressure Position Supine 12/13/18 12:46 Pulse Oximetry 97 12/16/18 11:10 Oxygen Delivery Method Room Air 12/16/18 11:10 Oxygen Flow Rate 0 12/16/18 11:10 Pain Level 0 12/16/18 11:10 Comment 12/16/18 03:25 Intake & Output 12/15/18 12/15/18 12/16/18 11:59 23:59 11:59 Intake Total 1320 / 1570 250 / 1570 980 / 980 Output Total 200 / 200 Balance 1320 / 1570 250 / 1570 780 / 780 Weight 56.3 kg 48.6 kg Intake: IV 220 / 220 Oral 1100 / 1350 250 / 1350 980 / 980 Output: Urine 200 / 200 Other: Urine Color Yellow Yellow Yellow Urine Appearance Clear Clear Clear Urine Odor Normal None Comment unable to assess pull ups pt stated that she is dry Stool Size Moderate Moderate Stool Characteristics Liquid Soft Brown Formed Brown Voiding Methods Diaper Toilet Toilet Incontinent Laboratory Results WBC 7.95 k/cumm (4.4-10.8) 12/16/18 06:30 RBC 5.17 m/cumm (4.00-5.20) 12/16/18 06:30 Hgb 15.6 g/dL (12.0-15.5) H 12/16/18 06:30 Hct 46.7 % (36.0-46.0) H 12/16/18 06:30 MCV 90.3 fL (80-95) 12/16/18 06:30 MCH 30.2 pg (27.0-33.0) 12/16/18 06:30 MCHC 33.4 g/dL (32.0-36.0) 12/16/18 06:30 RDW 13.3 % (11.7-14.6) 12/16/18 06:30 Plt Count 264 x1000/uL (130-400) 12/16/18 06:30 MPV 9.9 fL (8.0-11.0) 12/16/18 06:30 Immature Gran % 0.5 12/16/18 06:30 70.2 12/16/18 06:30 Cancelled 12/14/18 06:35 18.1 12/16/18 06:30 Atypical Lymphs % Cancelled 12/14/18 06:35 6.9 12/16/18 06:30 4.2 12/16/18 06:30 0.1 12/16/18 06:30 Cancelled 12/14/18 06:35 Cancelled 12/14/18 06:35 Cancelled 12/14/18 06:35 Absolute Neutrophils 5.58 k/cumm (1.2-6.7) 12/16/18 06:30 Absolute Lymphocytes 1.44 k/cumm (1.2-3.4) 12/16/18 06:30 Absolute Monocytes 0.55 k/cumm (0.11-0.7) 12/16/18 06:30 Absolute Eosinophils 0.33 k/cumm (0.0-0.7) 12/16/18 06:30 Absolute Basophils 0.01 k/cumm (0.0-0.2) 12/16/18 06:30 Nucleated RBCs Cancelled 12/14/18 06:35 Cancelled 12/14/18 06:35 Cancelled 12/14/18 06:35 RBC Morphology Cancelled 12/14/18 06:35 Cancelled 12/14/18 06:35 Cancelled 12/14/18 06:35 Absent 12/13/18 16:33 Cancelled 12/14/18 06:35 Cancelled 12/14/18 06:35 Cancelled 12/14/18 06:35 Cancelled 12/14/18 06:35 Cancelled 12/14/18 06:35 Cancelled 12/14/18 06:35 Cancelled 12/14/18 06:35 Cancelled 12/14/18 06:35 Cancelled 12/14/18 06:35 Cancelled 12/14/18 06:35 Cancelled 12/14/18 06:35 Cancelled 12/14/18 06:35 Acanthocytes (Spur) Cancelled 12/14/18 06:35 Cancelled 12/14/18 06:35 ESR 8 mm/hr (0-30) 12/14/18 08:06 PT 9.9 sec (9.3-11.0) 12/14/18 06:35 INR 1.0 (0.9-1.1) 12/14/18 06:35 Sodium 135 mmol/L (136-145) L 12/16/18 06:30 Potassium 4.1 mmol/L (3.5-5.1) 12/16/18 06:30 Chloride 96 mmol/L (98-107) L 12/16/18 06:30 Carbon Dioxide 28.7 mmol/L (21.0-32.0) 12/16/18 06:30 10.3 mmol/L (3-11) 12/16/18 06:30 BUN 3 mg/dL (7-18) L 12/16/18 06:30 0.56 mg/dL (0.55-1.02) 12/16/18 06:30 >= 60.00 (mL/min/1.73m2) 12/16/18 06:30 Glucose 95 mg/dL (70-100) 12/16/18 06:30 Calcium 9.1 mg/dL (8.5-10.1) 12/16/18 06:30 Magnesium 1.9 mg/dL (1.8-2.4) 12/16/18 06:30 0.4 mg/dL (0.2-1.0) 12/16/18 06:30 AST 12 U/L (15-37) L 12/16/18 06:30 ALT 20 U/L (14-59) 12/16/18 06:30 103 U/L (46-116) 12/16/18 06:30 19 umol/L (11-32) 12/13/18 23:00 3.66 mg/dL (0.0-0.3) H 12/14/18 06:35 7.1 g/dL (6.4-8.2) 12/16/18 06:30 3.7 g/dL (3.4-5.0) 12/16/18 06:30 Vitamin B12 525 pg/mL (193-986) 12/16/18 06:30 TSH 0.73 uIU/mL (0.36-3.74) 12/14/18 06:35 Yellow (Yellow) 12/15/18 08:50 Sl cloudy (Clear) 12/15/18 08:50 7.0 (5-8) 12/15/18 08:50 Ur Specific [place] 1.020 (1.005-1.025) 12/15/18 08:50 Negative mg/dL (Negative) 12/15/18 08:50 Trace mg/dL (Negative) H 12/15/18 08:50 Negative (Negative) 12/15/18 08:50 Negative (Negative) 12/15/18 08:50 Negative (Negative) 12/15/18 08:50 0.2 EU/dL (Up TO 0.2) 12/15/18 08:50 Ur Leukocyte Esterase Negative (Negative) 12/15/18 08:50 0-2 (0-2) 12/13/18 15:30 0-2 HPF (0-5) 12/13/18 15:30 Ur Epithelial Cells Moderate HPF (Negative) 12/13/18 15:30 Negative HPF (Negative) 12/13/18 15:30 Moderate HPF (Negative) 12/13/18 15:30 Negative LPF (Negative) 12/13/18 15:30 Negative (Negative) 12/13/18 15:30 Ur Culture Indicated? No/sq. contamination 12/13/18 15:30 Negative mg/dL (Negative) 12/15/18 08:50 4 12/13/18 16:33 Colorless 12/13/18 16:33 Clear 12/13/18 16:33 3 /mm3 (0-5) 12/13/18 16:33 1 /mm3 (0-5) 12/13/18 16:33 CSF Diff Comment 12/13/18 16:33 81 mg/dL (40-70) H 12/13/18 16:38 39 mg/dL (15-45) 12/13/18 16:33 Negative (Negative) 12/13/18 15:30 Negative (Negative) 12/13/18 15:30 Ur Barbiturates Screen Negative (Negative) 12/13/18 15:30 Ur Tricyclics Screen Positive (Negative) 12/13/18 15:30 Ur Amphetamines Screen Negative (Negative) 12/13/18 15:30 U Benzodiazepines Scrn Negative (Negative) 12/13/18 15:30 Negative (Negative) 12/13/18 15:30 Ur THC Screen Positive (Negative) 12/13/18 15:30 Ethyl Alcohol < 3.0 mg/dL (<3) 12/13/18 13:05
--- NOTE | 2018-12-16 14:57 | W.PM.DS.N ---
Date of service: 12/16/18 Time of Service: 14:57 DS: Diagnosis Discharge Diagnosis (1) Altered mental status: Status: Acute (2) Left lower lobe pulmonary nodule: Status: Acute (3) COPD (chronic obstructive pulmonary disease): Status: Acute (4) Alcohol abuse: Status: Acute Discharge Plan Disposition Patient Disposition: HOME W/HOME HEALTH SERVICE Condition: Serious Discharge Details Chief Complaint: AMS/LOC Clinical Impression: Altered mental status, Leukocytosis Reason For Visit: ENCEPHALOPATHY, LEUKOCYTOSIS Admit Date/Time: 12/13/18 18:01 Admit Provider: Maged Tobias Attending Provider: Maged Tobias Primary Care Provider: Jumana Gay ED Provider: Ori Mcghee Hospital Course Hospital Course: Chief Complaint: Altered Mental Status HPI: 58 year old woman with a prior history of Alcohol abuse reportedly in remission, admitted from [facility] Emergency Department on 12/13 with a diagnosis of altered mental status. Ms. Grant has a prior history of EtOH abuse and alcohol withdrawl in the past, as well as seizures likely associated with this. Her other history includes frequent prior falls resulting in fractures, COPD, HTN, CAD (by records), depression, anxiety, and GERD. Her alcohol abuse is reportedly in remission. The patient was found by law enforcement wandering the streets and attempting to climb over a fence. She was found by EMS to be confused and disoriented, and transported to the ED for further evaluation. Her work-up was remarkable for a leukocytosis, mild hypomagnesemia, elevated CRP, undetectable BAL, and urinalysis that was negative for infection. She was afebrile. CXR was obtained that showed a new 0.7 cm LLL pulmonary nodule and old rib fracutres, but without any infiltrates or other acute abnormalities - of note, overread by local radiology WITHOUT mention of nodule. CT of her head was negative for any acute findings as well. Her UDS was positive for Tricyclics and THC only. Given the uncertain nature of her symptoms, and her complaints of headache LP was performed and negative for infection. She was referred for admission for further evaluation and treatment. This morning Ms. Grant again continues to appear awake and alert, cooperative but still not oriented to time. No focal deficits are noted, and MRI of the brain was without acute pathology. Tick Panel and Rheum panel VDRL are still pending, and HIV and RPR that were negative. Per discussion with patient's son, it appears that she has had a longstanding history of depression, anxiety, and problems with abandomnet. The son was recently promoted at work and will be relocating to [facility], and had discussed with his mother (who lives with him) that there may be a need for alternate housing for her in the near future. He reportedly discussed this with her last week, and reports that he discovered a change in her overall demeanor after that, and also found that she may have had a relapse with alcohol as well. Per neurology evaluation, patient's symptoms may represent Wenicke's, although atypical and unsual presentation, versus a manifestation of underlying psychiatric disorder. No overnight events reported. She remains afebrile. Hospital Course: (1) Altered mental status: Etiology remains unclear. - No reported change in medications, including dose of Buprenorphine. - No evidence of drugs of abuse on limited Urine Drug Screen (other than THC). - No gross electrolyte abnormality, and TSH normal. Not significantly hyper/hypoglycemic. Also not hypoxic. - No evidence of liver or kidney failure - not uremic, and ammonia levels are normal. - Although altered, the patient does not appear to be withdrawing from alcohol - BAL undetectable, no tremors or hallucinations, not diaphoretic, tachycardic, or hypertensive. - No evidence of infection with a negative urinalysis, CXR, and LP. Blood and CSF cultures have remained negative. Remains afebrile, and with leukocytosis resolved overnight. - Although ABG was not obtained, no evidence of significant gap and bicarb is normal - doubt hypercapnia. - MRI Brain checked and negative. Neurology with potential for Psych vs. Wernicke''s Encephalopathy - recommendations for continuation of Thiamine replacement, and consideration for psychiatric work-up. Discussion with Dr. Serna who has reviewed the case - recommendations for outpatient Psychiatric care as provided at the patient's PCP office at [facility]. Also with recommendations for Neurology follow-up within 4-6 weeks either locally, or near [place] pending patient's ultimate destination. (2) Left lower lobe pulmonary nodule: Noted on initial CXR read by virtual radiology, but not on official read by local radiology. Consider further imaging with CT if deemed appropriate. (3) COPD (chronic obstructive pulmonary disease): Appears quiescent. (4) Alcohol abuse: Reportedly in remission, with potential relapse a few days prior to admission. (5) DVT prophylaxis: Was maintained on SC Enoxaparin. (6) Discharge planning issues: Recommendations for placement given patient's mental status and presentation. Mrs. Grant's son has expressed interest for taking her home and continuing to care for her, and understands and assumes responsibility for her care. His plan as of now is for potential assisted care facility near his new home in [place] in the near future. Also, due to instructions from Case Management, Adult Protective Services were involved and reviewed this case - no evidence for neglect was found. Home Meds and New Rx's Prescriptions: New thiamine HCl (vitamin B1) 100 mg tablet 100 mg PO DAILY Qty: 34 RF: 0 Continued Narcan 4 MG spray,non-aerosol 4 mg NS PRN Qty: 2 RF: 2 acetaminophen [Mapap Extra Strength] 500 MG tablet 500 mg PO Q4H PRN PRNRF: 0 gabapentin 300 MG capsule 600 mg PO TID RF: 0 albuterol sulfate 90 mcg/actuation HFA aerosol inhaler 1 puff IH Q6H PRN (Reason: shortness of breath or wheezing) Qty: 6.7 RF: 0 omeprazole 40 mg Capsule,Delayed Release(Dr/Ec) 40 mg PO DAILY RF: 0 cyanocobalamin (vitamin B-12) 500 mcg Tablet 500 mcg PO DAILY RF: 0 ferrous sulfate 325 mg (65 mg iron) Tablet 325 mg PO DAILY RF: 0 amitriptyline 100 mg Tablet 200 mg PO HS RF: 0 folic acid 0.8 mg Capsule 0.4 mg PO DAILY RF: 0 Symbicort 160-4.5 mcg/actuation Hfa Aerosol Inhaler 2 puff INHALATION DAILY RF: 0 buprenorphine-naloxone [Suboxone] 12-3 mg Film 1 film sublingual DAILY RF: 0 Discharge Instructions Stand Alone Forms: Nursing Discharge Form Referrals: [facility] [Other] (FOLLOW UP WITH THE SURGICAL TEAM AT [facility] THAT PERFORMED YOUR SKIN GRAFT TO THE LEFT LEG IN THE PAST.) Jumana Gay [Primary Care Provider] - Activity:: No Strenuous Activity. Ensure patient is supervised at all times. Equipment/Supplies:: No Equipment Needed Diet:: As Tolerated Discharge Orders Discharge Orders: Discharge Order (Routine); Ordered 12/16/18 Ordered By: Skip Mauro Exam Narrative Exam Narrative: General: Patient appears comfortable, Awake and alert - oriented to place and person but not time, NAD Neck: Supple CV: Regular, nontachycardic, S1S2, No rubs, murmurs, or gallops. Pulmonary: Clear to auscultation bilaterally, no crackles, wheezing, or rhonchi Abdomen: + Bowel Sounds, soft, nontender, nondistended Vascular: No lower extremity edema Neurologic: No tremors Psych: Normal mood and affect. DS: Data Vitals/I&O Vitals and I&O: Vital Signs Temperature 36.0 C L 12/16/18 11:10 Temperature Source Tympanic 12/16/18 11:10 Pulse 69 12/16/18 11:10 Pulse Rhythm Regular 12/16/18 08:47 Pulse 80 12/13/18 16:10 Respiratory Rate 12/16/18 11:10 Respiratory Effort 12/16/18 08:47 Respiratory Depth Normal 12/16/18 08:47 Respiratory Pattern Normal 12/16/18 08:47 Blood Pressure 131/79 12/16/18 11:10 Blood Pressure Mean 92 12/13/18 16:00 Blood Pressure Position Supine 12/13/18 12:46 Pulse Oximetry 97 12/16/18 11:10 Oxygen Delivery Method Room Air 12/16/18 11:10 Oxygen Flow Rate 0 12/16/18 11:10 Pain Level 0 12/16/18 11:10 Comment 12/16/18 03:25 Intake & Output 12/15/18 12/16/18 12/16/18 23:59 11:59 23:59 Intake Total 250 / 1570 980 / 1220 240 / 1220 Output Total 200 / 200 Balance 250 / 1570 780 / 1020 240 / 1020 Weight 48.6 kg Intake: Oral 250 / 1350 980 / 1220 240 / 1220 Output: Urine 200 / 200 Other: Urine Color Yellow Yellow Urine Appearance Clear Clear Urine Odor None Comment unable to assess pull ups pt stated that she is dry Stool Size Moderate Stool Characteristics Soft Formed Brown Voiding Methods Toilet Toilet Completed studies during hospitalization [Text1]: Exam(s) 12/13/[address]:CT head wo SYMPTOMS/DIAGNOSIS: ALTERED MENTATION, HEADACHE NONCONTRAST HEAD CT: Comparison is made with December,. No intracranial hemorrhage, mass or infarct is seen. The ventricles are normal in size. There are no significant white matter changes. There is no evidence of skull fracture. The visualized portions of the sinuses and mastoid air cells appear clear. IMPRESSION: Negative head CT. No skull fracture or sinus opacification. -------- EXAM: 12/13/2018 XR Chest, 2 Views EXAM DATE/TIME: 12/13/2018 2:54 PM CLINICAL HISTORY: 58 years old, female; Other: Cough TECHNIQUE: Imaging protocol: XR of the chest, 2 views. COMPARISON: CR XR CHEST 1V IN DI DEPT 03/19/2019 09:25 FINDINGS: Lungs: Coarse increased interstitial lung markings bilaterally stable compared with prior study. Possible 0.7 cm left lower lobe lung nodule not appreciated on the prior chest x-ray. Pleural space: Unremarkable. No pleural effusion. No pneumothorax. Heart/Mediastinum: Cardiomediastinal silhouette is unchanged. Bones/joints: Postsurgical changes of the right and left humerus. Old bilateral clavicular fractures. Multiple old bilateral rib fractures. Multilevel degenerative changes of the thoracic spine. IMPRESSION: 1. New 0.7 cm left lower lobe lung nodule does not correspond to the previously mentioned larger lung nodule 09/23/2018. On the nipple marker films the nodule may overlie the left ninth posterior rib. Consider chest CT for further evaluation of the incompletely evaluated lung nodule noted on a chest x-ray. 2. No acute cardiopulmonary findings. Chronic interstitial lung changes. 3. Multiple old fractures as discussed above Exam(s) 12/13/2018 a RAD:XR chest 2V PA & lateral SYMPTOMS/DIAGNOSIS: COUGH PA AND LATERAL CHEST: Comparison is made with December,. The heart size is normal. There are old bilateral rib fractures. There is hardware in both proximal humeri. The lungs appear clear. No thoracic compression fractures are seen. IMPRESSION: No acute abnormality. Exam(s) a MRI:MR brain wo/w SYMPTOMS/DIAGNOSIS: ENCEPHALOPATHY MRI OF THE BRAIN: Comparison is made with head CT dated . T 2 sagittal, T 1, T 2, FLAIR, diffusion and gradient echo axial and post Gadolinium T 1 axial and coronal sequences were performed. The exam is mildly limited by patient motion. There is no significant atrophy. There is scattered small foci of high signal in the white matter which may be secondary to microvascular disease. No acute infarct, hemorrhage or mass is seen. There are no abnormal areas of restricted diffusion. The ventricles are normal in size. The vascular flow voids appear intact. There are no abnormal areas of enhancement. IMPRESSION: Mild scattered foci consistent with microvascular disease. No acute abnormality. Labs on day of discharge: Labs from last 24 hours 12/16/18 12/16/18 12/16/18 06:30 06:30 06:30 WBC 7.95 RBC 5.17 Hgb 15.6 H Hct 46.7 H MCV 90.3 MCH 30.2 MCHC 33.4 RDW 13.3 Plt Count 264 MPV 9.9 Immature Gran % 0.5 Neutrophils % 70.2 Lymphocytes % 18.1 Monocytes % 6.9 Eosinophils % 4.2 Basophils % 0.1 Absolute Neutrophils 5.58 Absolute Lymphocytes 1.44 Absolute Monocytes 0.55 Absolute Eosinophils 0.33 Absolute Basophils 0.01 Sodium 135 L Potassium 4.1 Chloride 96 L Carbon Dioxide 28.7 Anion Gap 10.3 BUN 3 L Creatinine 0.56 Estimated GFR/1.73 m2 >= 60.00 Glucose 95 Calcium 9.1 Magnesium 1.9 Total Bilirubin 0.4 AST 12 L ALT 20 Alkaline Phosphatase 103 Total Protein 7.1 Albumin 3.7 Vitamin B12 525 Syphilis Serology Lyme Disease Antibody HIV 1&2 Ag/Ab, 4th Gen 12/14/18 12/14/18 12/13/18 06:35 06:35 18:30 WBC RBC Hgb Hct MCV MCH MCHC RDW Plt Count MPV Immature Gran % Neutrophils % Lymphocytes % Monocytes % Eosinophils % Basophils % Absolute Neutrophils Absolute Lymphocytes Absolute Monocytes Absolute Eosinophils Absolute Basophils Sodium Potassium Chloride Carbon Dioxide Anion Gap BUN Creatinine Estimated GFR/1.73 m2 Glucose Calcium Magnesium Total Bilirubin AST ALT Alkaline Phosphatase Total Protein Albumin Vitamin B12 Syphilis Serology Negative Lyme Disease Antibody Negative HIV 1&2 Ag/Ab, 4th Gen Negative Preliminary micro results at discharge 12/15/18 08:50 Urine Culture - Preliminary Urine - Cath Straight Gram Negative Keyur Gram Positive Jelly 12/13/18 16:38 Body Fluid Culture - Preliminary Cerebrospinal Fluid 12/13/18 19:03 Blood Culture - Preliminary Blood NO GROWTH 48 HOURS 12/13/18 18:30 Blood Culture - Preliminary Blood NO GROWTH 48 HOURS [facility] Medical History Alcohol abuse Anxiety and depression Chronic pain Shoulder s/p fx's COPD (chronic obstructive pulmonary disease) GERD (gastroesophageal reflux disease) Hyperlipidemia Hypertension Surgical History Debridement, Soft Tissue (06/10/15) [facility] Dr De Guzman: debridment and washout of multiple right thigh lacerations with complex closure flap coverage (11/07/17) bipedicled fasciocutaneous advancement flap coverage of left lower extremtiy wound, STSG and wound vac placement. [facility] plasti surg. 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 pt is confused at the moment. But prior H&P have documented heavy alcohol use and occasional marijiuana use Household members: children What is your relationship status?: Panel score (0-1 are the most socially isolated patients): 0 Do you feel safe at home: Yes Do you feel safe in your relationship?: Yes
--- NOTE | 2018-12-16 15:41 | CMDISCH_ITS ---
- If Service Date Differs Date of service: 12/16/18 Time of Service: 15:41 LACE Index Scoring Tool - Questions: Length of Stay (in days): 4 - 6 Acuity (Admit via E.D.?): Yes Comorbidities: Dementia E.D. Visits: 4 - Answers: Total Score: 14 Risk of Readmission: High Risk Care Management Discharge Reason for Hospitalization: Encephalopathy, leukocytosis, COPD, AMS Discharge Plan: Joann is being discharged home with new home health services for nursing, wound management and a new referral to [facility] for meals on wheels and options counseling. FEROZ did review case with APS today per Amada thorne to send patient home with community supports. CM contacted [facility] and they will resume services in that area when she moves over with her son. Austin was provided all the information for community programs and CM reviewed safety concerns and Austin is willing to bring her home with extra supports in place and provide Joann support at home. Patient/Family Education Needs: CM reviewed all resources with the Son including referrals for meals on wheels and options through [facility]. CM also reviewed referral to home health for wound care and [employer]. Austin agrees with the plan. CM provided education r/t [facility] for adult day services. Joann is resistant to leaving the home to adult day, Austin will continue to discuss with her. Services Needed at Discharge: Home Delivered Meals, Home Health Care Services, Transportation
[2018-12-16 15:55] VITALS: BP 117/69; PULSE 60; RESP 20; TEMP 36; O2SAT 98
[2018-12-17 11:20] LABS: dsDNA Ab, IgG <12.3 IU/mL (<30)
[2018-12-17 17:49] LABS: Anaplasma phagocytophilum Negative (Negative); B. miyamotoi PCR Negative (Negative); Babesia divergens/MO-1 Negative (Negative); Babesia duncani Negative (Negative); Babesia microti Negative (Negative); Ehrlichia chaffeensis Negative (Negative); Ehrlichia ewingii/canis Negative (Negative); Ehrlichia muris eauclairensis Negative (Negative)
== END 2018-12-16 17:50 | disposition home health service (06) | DRG 71 ==
LOC: ER 18:37 → MS 18:59
PROVIDERS: Admitting Provider Internal Medicine; Emergency Provider Student in an Organized Health Care Education/Training Program; PCP Family Medicine; Visit Provider Internal Medicine
DX: G93.41 Metabolic encephalopathy (principal); F11.20 Opioid dependence, uncomplicated; L97.821 Non-pressure chronic ulcer of other part of left lower leg limited to breakdown of skin; R41.82 Altered mental status, unspecified; R91.1 Solitary pulmonary nodule; D72.829 Elevated white blood cell count, unspecified; J44.9 Chronic obstructive pulmonary disease, unspecified; E83.42 Hypomagnesemia; F10.21 Alcohol dependence, in remission; I10 Essential (primary) hypertension; I25.10 Atherosclerotic heart disease of native coronary artery without angina pectoris; F41.8 Other specified anxiety disorders; K21.9 Gastro-esophageal reflux disease without esophagitis; Z91.81 History of falling; Z60.0 Problems of adjustment to life-cycle transitions; F17.210 Nicotine dependence, cigarettes, uncomplicated; I83.028 Varicose veins of left lower extremity with ulcer other part of lower leg
CPT/HCPCS: 36415; 70553; 80053; 80307; 82945; 85652; 87040; 87389; 87798; 89050; 89051; 94640; 96361; 96365; 96367; 99223; 99232; 99239; 99285; J1650; 70450; 71046; 80320; 81003; 81015; 82140; 82607; 83735; 84157; 84443; 85025; 85610; 86140; 86225; 86592; 86618; 87070; 87086; 87205; 99284; J0696; J3475

== ENCOUNTER → 2018-12-15 09:14 | Outpatient (BNVA) | payer OTHER, SELFPAY | PROVIDERS: PCP Family Medicine; Visit Provider Psychiatry & Neurology Neurology | DX: R69 Illness, unspecified (principal) ==

== ENCOUNTER 2018-12-17 08:40 | Inpatient (IN) | payer OTHER, SELFPAY ==
[2018-12-17 08:42] VITALS: BP 118/77; PULSE 60; RESP 18; TEMP 36.2; O2SAT 95
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
[2018-12-17] MEDS: Acetaminophen 500 MG TAB 1000 MG PO (09:08)
[2018-12-17 09:20] LABS: Abs Immature Grans 0.06 k/cumm (0.0-0.09); Absolute Basophil Count 0.02 k/cumm (0.0-0.2); Absolute Eosinophil Count 0.27 k/cumm (0.0-0.7); Absolute Lymphocyte Count 1.74 k/cumm (1.2-3.4); Absolute Monocyte Count 0.75 k/cumm (0.11-0.7); Absolute Neutrophil Count 6.52 k/cumm (1.2-6.7); Basophils % 0.2; Eosinophils % 2.9; HCT 45.9 % (36.0-46.0); HGB 15.7 g/dL (12.0-15.5); Immature Grans % 0.6; Lymphocytes % 18.6; Mean Corp. HGB Concentration 34.2 g/dL (32.0-36.0); Mean Corpuscular Hemoglobin 31.2 pg (27.0-33.0); Mean Corpuscular Volume 91.1 fL (80-95); Mean Platelet Volume 9.3 fL (8.0-11.0); Neutrophils % 69.7; Platelet Count 271 x1000/uL (130-400); RBC 5.04 m/cumm (4.00-5.20); RBC Distribution Width 13.3 % (11.7-14.6); White Blood Cell Count 9.36 k/cumm (4.4-10.8)
[2018-12-17 09:44] LABS: ALT 18 U/L (14-59); AST 9 U/L (15-37); Albumin 3.6 g/dL (3.4-5.0); Alkaline Phosphatase 91 U/L (46-116); Anion Gap 8.9 mmol/L (3-11); BUN 7 mg/dL (7-18); Bilirubin, Total 0.3 mg/dL (0.2-1.0); CO2 28.1 mmol/L (21.0-32.0); CREATININE 0.57 mg/dL (0.55-1.02); Calcium 9.3 mg/dL (8.5-10.1); Chloride 101 mmol/L (98-107); Glucose 114 mg/dL (70-100); Potassium 4.2 mmol/L (3.5-5.1); Sodium 138 mmol/L (136-145); Total Protein 6.5 g/dL (6.4-8.2)
--- NOTE | 2018-12-17 09:46 | NUR.NOTE ---
Nursing Note: Patient discharged yesterday form inpatient stay. Was at [facility] this morning for Suboxone dosing. Unsure of other med intake.
[2018-12-17 09:57] LABS: ETHANOL BLOOD < 3.0 mg/dL (<3)
[2018-12-17 10:03] LABS: Acetaminophen 15 ug/mL (10-30); Salicylate 7.8 mg/dL (2.8-20.0)
[2018-12-17 11:09] LABS: Bilirubin Small (Negative); Blood Negative (Negative); Clarity Clear (Clear); Glucose Negative (Negative); Ketones Negative (Negative); Leukocyte Esterase Negative (Negative); Nitrite Negative (Negative); Urobilinogen 0.2 EU/dL (Up TO 0.2); pH 5.5 (5-8)
[2018-12-17 11:19] LABS: WBC 0-2 HPF (0-5)
[2018-12-17 11:20] LABS: Bacteria Few HPF (Negative); Casts 3-5 Hyaline LPF (Negative); Crystals Negative HPF (Negative); Epithelial Cells Few HPF (Negative); Mucus Moderate (Negative); RBC Negative (0-2)
[2018-12-17 11:21] LABS: C & S Indicated? No
[2018-12-17 11:22] LABS: TSH 4.75 uIU/mL (0.36-3.74)
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
[2018-12-17 11:56] VITALS: BP 102/69; PULSE 59; RESP 18; TEMP 37.1; O2SAT 94
[2018-12-17 12:00] LABS: *AMPHETAMINES SCREEN URINE Negative (Negative); *BARBITURATES SCREEN URINE Negative (Negative); *BENZODIAZEPINES SCREEN URINE Negative (Negative); Cannabinoids THC POSITIVE (Negative); Cocaine Screen,Urine Negative (Negative); METHADONE URINE SCREEN Negative (Negative); OPIATES URINE SCREEN Negative (Negative); Tricyclic Antidepressants POSITIVE (Negative)
[2018-12-17 12:56] VITALS: BP 106/68; PULSE 67; RESP 16; TEMP 35.9; O2SAT 94
[2018-12-17] MEDS: Gabapentin 300 MG CAP 600 MG PO ×2 (13:48→19:15)
[2018-12-17 15:32] VITALS: BP 108/65; PULSE 68; RESP 16; TEMP 36.9; O2SAT 96
[2018-12-17 19:15] VITALS: BP 116/69; PULSE 64; RESP 20; TEMP 36.8; O2SAT 96
[2018-12-17] MEDS: Budesonide/Formoterol 160/4.5 6 GM 60 PUFF INH IH (19:15)
[2018-12-17] MEDS: Amitriptyline 50 MG TAB 200 MG PO (21:39)
[2018-12-18 07:14] VITALS: BP 104/68; PULSE 69; RESP 17; TEMP 36.8; O2SAT 95
[2018-12-18] MEDS: Budesonide/Formoterol 160/4.5 6 GM 60 PUFF INH IH ×2 (08:03→20:27)
[2018-12-18] MEDS: Gabapentin 300 MG CAP 600 MG PO ×3 (08:35→20:26)
[2018-12-18] MEDS: Buprenorphine/Naloxone 8 mg/2 mg FILM 2 EACH SL (08:35)
[2018-12-18] MEDS: Ferrous Sulfate 325 MG TAB PO (08:35)
[2018-12-18] MEDS: Folic Acid 1 MG TAB 0.5 MG PO (08:35)
[2018-12-18] MEDS: Omeprazole 20 MG CAPCR 40 MG PO (08:35)
[2018-12-18] MEDS: Cyanocobalamin 500 MCG TAB PO (08:35)
[2018-12-18] MEDS: Thiamine 100 MG TAB PO (08:35)
--- NOTE | 2018-12-18 09:44 | CMSA_ITS ---
- If Service Date Differs Date of service: 12/17/18 Time of Service: 17:00 SB Psychosocial/Act.Assessment - Hospital Admission Admission Date: 12/17/18 Admission From:: ED - Swing Bed Admission Swing Bed Admit Date:: 12/17/18 - Social Supports PREVIOUS FUNCTIONAL STATUS/SOCIAL/FAMILY SUPPORTS:: Joann resides with her son Austin in a third floor apartment in [place], [place]. She also has a son, Martínez who resides in [place], [place] and a son Aman residing locally as well. She is on SSDI and has a pension from [employer], so her income is ab ove eligibility for Medicaid. - Prior to Admission Living Arrangements/Environment Prior to Admission:: Joann has been living in an apartment with her son in [facility]. - Education Highest Grade Completed:: 12th Where did you attend School:: [employer] - Work History Employment Status:: Joann is disabled - [place]: No 's Spouse: No - Benefits Financial: SSI - Oriental Orthodox Active Anglican Member:: Yes Anglican Affliation: Voodoo Will Anglican Members or Firearms Instructor Visit:: No - Advance Directives for Healthcare If no AD, do you want more information:: No - Interests Hobbies:: embroidery Music:: enjoys all kinds of music TV/Movies:: loves movies and TV - Present Functional Status Physical Abilities:: Joann is independent with all ADLs and activities Cognitive:: Joann is alert and oriented x3 Communication:: good verbal and written communication skills Sensory Systems: wears glasses - Medical History PAST MEDICAL HISTORY/PAST SURGICAL HISTORY:: ETOH dependency, previous relapses, anxiety/depression, insomnia, GERD, tobacco abuse, hyperlipidemia, HTN. alcoholism and alcohol withdrawal, frequent falls resulting in prior fractures of her hip and arms, and ribs, COPD, HTN, HLD, GERD and depression w/ anxiety. Surgical:gastric bypass, ORIF L tib/fib fx, shoulder surgery. General Health:: good Past Psychiatric Treatment:: yes, for depression - Admission Data Reason for Swing Bed Admission:: no safe discharge plan in the community Discharge Plan:: Assisted living or adjunct faculty for medical terminology care Assessment: Joann is a 58 year old woman admitted from the ED on 12/17/18. She had been discharged from [facility] the day before but her son felt unable to safely care for her at home. Efforts will be made to secure a safe place for Joann to live. Assistant Professor Of Mathematics: Jeanne Storey Date Assessment was completed:: 12/17/18
--- NOTE | 2018-12-18 09:45 | CMSCP_ITS ---
- If Service Date Differs Date of service: 12/17/18 Time of Service: 17:00 Swingbed Plan of Care Plan of care: SWING BED PROGRAM ACTIVITIES/DISCHARGE PLAN OF CARE ACTIVITIES PLAN Date: 12/17/18 Identified Need: individualized activity plan Intervention/Plan: Joann enjoys watching television and movies, embroidery and music. She will be offered music and pet therapy when available and will continue to have access to TV. [place] [facility] [place] Date: 12/17/18 Identified Need: Safe discharge plan Intervention/Plan: Placement in assisted living or terminal superintendent care is being pursued. [place] [facility]
[2018-12-18 16:01] VITALS: BP 106/76; PULSE 70; RESP 17; TEMP 37; O2SAT 96
[2018-12-18] MEDS: Amitriptyline 50 MG TAB 200 MG PO (21:51)
[2018-12-18] MEDS: Amitriptyline 50 MG TAB (21:51)
[2018-12-18 23:27] VITALS: BP 118/76; PULSE 65; RESP 18; TEMP 36.6; O2SAT 97
[2018-12-19 07:30] VITALS: BP 113/77; PULSE 72; RESP 17; TEMP 36.9; O2SAT 92
[2018-12-19] MEDS: Omeprazole 20 MG CAPCR 40 MG PO (07:34)
[2018-12-19] MEDS: Budesonide/Formoterol 160/4.5 6 GM 60 PUFF INH IH (09:24)
[2018-12-19] MEDS: Acetaminophen 325 MG TAB PO (09:37)
[2018-12-19] MEDS: Buprenorphine/Naloxone 8 mg/2 mg FILM 2 EACH SL (09:38)
[2018-12-19] MEDS: Folic Acid 1 MG TAB 0.5 MG PO (09:38)
[2018-12-19] MEDS: Ferrous Sulfate 325 MG TAB PO (09:38)
[2018-12-19] MEDS: Cyanocobalamin 500 MCG TAB PO (09:38)
[2018-12-19] MEDS: Thiamine 100 MG TAB PO (09:38)
[2018-12-19] MEDS: Gabapentin 300 MG CAP 600 MG PO ×3 (09:38→19:14)
--- NOTE | 2018-12-19 13:23 | NUR.NOTE ---
Nursing Note: Patient went outside with her son to smoke cigarettes
--- NOTE | 2018-12-19 13:55 | PDOC.CMPRO ---
Care Management Progress Note CM met with Joann and Austin and provided mediation with discussion. Joann was able to regulate well during the conversation, and CM provided cueing to Austin when he interrupted Joann, encouraging him to be gentle when describing his worries about Joann and her past behaviors. Joann was able to verbalize that there are times when she feels disconnected and times of confusion where she is not alert and oriented. She reported at times being aware that she is confused. She reported fears around sharing information as she reported she didn't want to be locked up. She appeared to calm during the conversation regarding disposition when she was assured by this magnetic tape typewriter operator and Austin that she would have say in her disposition but that Austin and providers were concerned that she may be experiencing some new mental status changes. CM validated Joann's fears around this information and encouraged her to continue to be forthcoming with information. Austin processed his concerns around Joann's suboxone prescription with Joann, who tolerated the conversation well and agreed her dose reasonably be tapered. CM reviewed patient confidentiality and patient advocation, assuring Joann that she could be honest with this magnetic tape typewriter operator; CM did review mandated reporting as well. Austin advocated for Joann to be permitted to go outside with him. CM reviewed expectations including any smoking be done off from [facility] grounds. CM also reviewed [facility] expectations and insurance limitations with Joann, and explained that the [facility] would be fully covered but [facility] was resulting in about a 1/3 cost to Joann per day; CM reviewed Patient assistance coverage. CM explained that the preference for going outside would be for Joann to go with Austin due to staff limitations and concerns for Joann's wellbeing. CM notified [facility] who agreed to permit Joann to go outside with Austin. Joann and Austin reported being interested in assisted living arrangements in the [facility]. Austin reported being open to co-existing in the same building once a clearer picture of Joann's current mental health status is available.
[2018-12-19 16:17] VITALS: BP 121/82; PULSE 80; RESP 18; TEMP 36.7; O2SAT 91
[2018-12-19] MEDS: Amitriptyline 50 MG TAB 200 MG PO (21:04)
[2018-12-19 23:50] VITALS: BP 120/81; PULSE 76; RESP 20; TEMP 36.7; O2SAT 94
[2018-12-20 07:40] VITALS: BP 119/77; PULSE 65; RESP 18; TEMP 36.7; O2SAT 94
[2018-12-20] MEDS: Cyanocobalamin 500 MCG TAB PO (08:28)
[2018-12-20] MEDS: Folic Acid 1 MG TAB 0.5 MG PO (08:28)
[2018-12-20] MEDS: Gabapentin 300 MG CAP 600 MG PO ×3 (08:28→19:45)
[2018-12-20] MEDS: Omeprazole 20 MG CAPCR 40 MG PO (08:29)
[2018-12-20] MEDS: Ferrous Sulfate 325 MG TAB PO (08:29)
[2018-12-20] MEDS: Thiamine 100 MG TAB PO (08:29)
[2018-12-20] MEDS: Buprenorphine/Naloxone 8 mg/2 mg FILM 2 EACH SL (08:30)
[2018-12-20] MEDS: Budesonide/Formoterol 160/4.5 6 GM 60 PUFF INH IH (09:30)
--- NOTE | 2018-12-20 13:30 | PHARADMIT ---
Re-admitted 12/17/18 as SWINGBED level-1 VS ok, no labs this weekend MD mentions patient would like to decrease her Suboxone dose, as [facility] had recently increased it No med changes this weekend (Amitriptyline was started on re-admission, not her Wellbutrin, Meloxicam, Zolpidem) CM working on alternate living arrangements Notes below are from last admission, was discharged 12/16/18 and re-admitted 12/17/18 due to family unable to care for her at home 12/16/18 11:09 - Pharmacy Review by George Melo III Acct Num: [id number] : 1960 Patient Age: 58 Admission Pharmacy Clinical Review ENCEPHALOPATHY, LEUKOCYTOSIS Code Status Full Code Current Weight Wgt-48.6 kg Renally Cleared and Narrow Therapeutic Index Meds CrCl~ 58 mL/min Meds-OK QTc Value / Action Taken QTc-452 BP Control, Fever BP-142/94 Electrolytes reviewed Na-138 K+4.1 Mag-1.9 DVT Prophylaxis TEDS, SCDs Opiate Usage / Scheduled Bowel Regimen Ordered Suboxone, Yes Plt/SCr for Heparin / Enoxaparin Plts-264 SCr-0.56 INR for Warfarin inr-1.0 H/H stable, WBC/Bands H&H- 15.6/46.7 WBC- 7.95 Antibiotic appropriateness none Cultures and Sensitivities na Surgical ABX d/c within 24 hr na DM control / Insulin Dosing BG-95 Heart Failure (Check EF%) (LUCINA's, B-Block, Diuretics) none IV to PO Switch No Home Meds Reviewed Yes Home Meds Not Ordered Elavil, Wellbutrin, B-12, Iron, FA, Naloxone [place] Oxycodone, Gabapentin, Meloxicam, Ambien Comments UDS- (+) Tricyclics, THC,
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
[2018-12-20 15:57] VITALS: BP 99/63; PULSE 78; RESP 18; TEMP 36.3; O2SAT 98
[2018-12-20] MEDS: Acetaminophen 325 MG TAB PO (20:27)
[2018-12-20] MEDS: Amitriptyline 50 MG TAB 200 MG PO (21:40)
[2018-12-20 23:14] VITALS: BP 106/69; PULSE 71; RESP 19; TEMP 37.1; O2SAT 95
[2018-12-21] MEDS: Acetaminophen 325 MG TAB PO (07:20)
[2018-12-21] MEDS: Omeprazole 20 MG CAPCR 40 MG PO (07:24)
[2018-12-21 07:55] VITALS: BP 100/66; PULSE 94; RESP 18; TEMP 37.6; O2SAT 96
[2018-12-21] MEDS: Folic Acid 1 MG TAB 0.5 MG PO (08:18)
[2018-12-21] MEDS: Cyanocobalamin 500 MCG TAB PO (08:18)
[2018-12-21] MEDS: Thiamine 100 MG TAB PO (08:18)
[2018-12-21] MEDS: Ferrous Sulfate 325 MG TAB PO (08:19)
[2018-12-21] MEDS: Gabapentin 300 MG CAP 600 MG PO ×3 (08:19→20:55)
[2018-12-21] MEDS: Buprenorphine/Naloxone 8 mg/2 mg FILM 2 EACH SL (08:21)
[2018-12-21] MEDS: Budesonide/Formoterol 160/4.5 6 GM 60 PUFF INH IH (09:13)
[2018-12-21 13:33] VITALS: O2SAT 96
--- NOTE | 2018-12-21 13:40 | PSYCO_ITS ---
Date of service: 12/21/18 Time of Service: 12:45 History of Present Illness Narrative: Primary Care Provider: Jumana Gay MD at [facility] Referred by: Skip Mauro MD Information source: Patient, chart, medical team Identifying information / Chief Complaint: I was asked by Dr. Mauro to see Joann Grant for evaluation of altered mental status. History Of Present Illness: Per H&P by Dr. Mauro: 58 year old woman with a prior history of Alcohol abuse reportedly in remission, admitted from [facility] Emergency Department initially on 12/13 with a diagnosis of altered mental status, discharged on 12/17 in custody of her son, now being readmitted due to inability for safe care at home. Patient states that she feels fine, that she had not slept the night before this admission and she was at [facility] waiting for a ride and not feeling well and that she was confused due to fatigue and not eating well. She states that she did leave the stove on at home as reported by her son and that this is the first time she has done that. She got distracted while tired. She states that her insurance lapsed and she couldn't pickle pumper her amitriptyline or her gabapentin. Without them she can't sleep. I spoke with her son briefly in person. He states that he thinks her behaviors are stress related as he will be moving to [place], taking her with him, and she will have to live more on her own rather than with him as they are now. He is concerned about her forgetfulness. He is concerned about her high dose of suboxone. Substances: - alcohol: history of EtOH abuse, she reports relapsing a couple weeks ago because she couldn't sleep. - tobacco: 1/2 pack per day, has quit in the past - Marijuana: - other illicits/pills: has a history of suboxone abuse and now suboxone dependent and treated at [facility]. Safety: - current suicidal/homicidal/violent ideations:none - guns in home or access to weapons: none PAST PSYCHIATRIC HISTORY: Hospitalizations: not clarified at this visit Suicide attempts: 3 years ago Prescribers: Dr. Yu, psychiatrist in [place], PCP Medications: - amitriptyline 200mg nightly - helpful for sleep, started by Dr. Yu, last script from Dr. Gay - suboxone 16-2 helpful for pain and withdrawal - bupropion xl 150mg daily, helpful for cravings, (not taking here at this admission) Started by Dr. Yu, last script from dr. Gay per patient (not verified). - chantix: caused hallucinations - gabapention: helps with maintaining sobriety, also with pain Therapist: through [facility] Social history: - grew up in foster care, younger one of eight biological children as both bio parents alcoholics and unable to care for all the children. - struggled in school academically - has three sons: youngest one cares for her, middle son she is closest to but they trigger each other's addictions so do not hang out with each other, oldest one not present REVIEW OF SYSTEMS: Constitutional: feels fine Cardiovascular: No chest pains or dizziness Respiratory: no cough or shortness of breath Musculoskeletal: +weakness in RLE chronically, walks with cane for balance GI: No constipation, diarrhea, nausea, vomiting; appetite is low often due to history of gastric bypass Genitourinary: No dysuria, frequency of urination, hematuria Neurological: No seizures, tics, ataxia Psych: see above Endocrine: No cold or heat intolerance, polyuria, excessive thirst Hem/Lymph: No bruising, bleeding Allergies: see chart MENTAL STATUS EXAM: Constitutional: appears healthy, stated age, appropriate dress, grooming, hygiene. Attitude: cooperative Psychomotor: no retardation or agitation Speech: nonpressured, normal volume and prosody. No articulation problems noted. Associations: no looseness Thought process: linear, logical, goal directed Thought content without psychosis, delusions, obsessions No suicidal or homicidal ideations Hallucinations denied Mood: fine. I want to get out of here. Affect: full, impatient, irritable Attention/Concentration: a bit distracted Judgment/insight: poor-fair Oriented x 4 Language appropriate to age and education Fund of knowledge appropriate to age and education Memory intact to recent and remote events Other cognitive testing: see MoCA MoCA: 25/30 (normal is 26 or higher. Of note, there were multiple interruptions of people knocking on the door during this exam which could have impaired her concentration during elements of the exam and led to a result a point or two below her actual baseline.) Executive function: 4/5 with point lost for inaccurate copying of a cube Naming: intact Immediate recall: 5/5 on both trials Attention: intact to digit span and tapping. lost 2 points on subtraction, however, that is when interruptions from visitors happened during testing. Language: lost a point on sentence repetition. Did well in fluency Abstraction: intact Delayed recall: 4/5 uncued. The last word was not recalled with category cue but only with multiple choice cue. Orientation: intact. Assessment and Plan (1) Altered mental status: Current visit: No Status: Acute Joann Grant is a 58 year old female with past psychiatric history of alcohol and opiate abuse with recent relapse on alcohol prior to last admission, and currently treated with suboxone through [facility], and anxiety who was readmitted one day after discharge from last hospitalization for confusion and altered mental status. A very thorough medical work up was done on last 5 day admission to find an underlying etiology for delirium, including a neurological consultation. No findings of dementia, neurologic, infectious, neoplastic or vascular etiology came to light. Discharge followed spontaneous clearing of confusion. Today her MoCA shows nearly normal cognition and her behaviors were organized with getting dressed to go outside to smoke. No evidence of confusion. Son is still very concerned. Medication withdrawal could explain some of her acute cognitive changes, but son is not able to corroborate this hypothesis. I think another day of observation and more time to converse with son is in order. Safety: low risk for harm to self or others while here in the hospital. Recommendations: - no changes in medications - continue to monitor behaviors and for any confusion or delirium. I will follow up with her again tomorrow and speak with her son again tomorrow. Visit Statistics Total Visit Minutes: 20 Visit Time Allocation >50% of face to face visit spent in counseling (Extensive teaching, explanation and instructions. Counseling as appropriate. Review of plans, and discussion concerning medical problems dealt with at this visit. Discussion of benefits/risks of treatment, anticipated course of events, potential medication side effects, options, alternatives, and follow up plans. Questions were solicited and answered, and the patient verbalized understanding.), and/or coordination of care. [facility] Medical History Alcohol abuse Anxiety and depression Chronic pain Shoulder s/p fx's COPD (chronic obstructive pulmonary disease) GERD (gastroesophageal reflux disease) Hyperlipidemia Hypertension Opioid dependence on agonist therapy (Acute) Surgical History Debridement, Soft Tissue (06/10/15) [facility] Dr De Guzman: debridment and washout of multiple right thigh lacerations with complex closure flap coverage (11/07/17) bipedicled fasciocutaneous advancement flap coverage of left lower extremtiy wound, STSG and wound vac placement[place] [facility] [place]. 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 pt is confused at the moment. But prior H&P have documented heavy alcohol use and occasional marijiuana use Household members: children What is your relationship status?: Panel score (0-1 are the most socially isolated patients): 0 Do you feel safe at home: Yes Do you feel safe in your relationship?: Yes Results Last Vital Signs Temp 37.6 C H 12/21/18 07:55 Pulse 94 H 12/21/18 07:55 Resp 18 12/21/18 07:55 BP 100/66 12/21/18 07:55 Pulse Ox 96 12/21/18 13:33 Labs : 12/17/18 09:15 12/17/18 09:15
[2018-12-21] MEDS: Nicotine 14 MG/24 HR PATCH TD (15:00)
[2018-12-21 15:29] VITALS: BP 98/62; PULSE 78; RESP 18; TEMP 37.4; O2SAT 95
[2018-12-21] MEDS: Amitriptyline 50 MG TAB 200 MG PO (20:55)
[2018-12-21 22:00] VITALS: BP 111/71; PULSE 72; RESP 18; TEMP 36.4; O2SAT 96
[2018-12-22] MEDS: Omeprazole 20 MG CAPCR 40 MG PO (07:36)
[2018-12-22] MEDS: Gabapentin 300 MG CAP 600 MG PO ×2 (07:36→14:18)
[2018-12-22] MEDS: Budesonide/Formoterol 160/4.5 6 GM 60 PUFF INH IH (07:36)
[2018-12-22] MEDS: Folic Acid 1 MG TAB 0.5 MG PO (07:36)
[2018-12-22] MEDS: Thiamine 100 MG TAB PO (07:37)
[2018-12-22] MEDS: Buprenorphine/Naloxone 8 mg/2 mg FILM 2 EACH SL (07:37)
[2018-12-22] MEDS: Cyanocobalamin 500 MCG TAB PO (07:37)
[2018-12-22] MEDS: Ferrous Sulfate 325 MG TAB PO (07:37)
[2018-12-22] MEDS: Acetaminophen 325 MG TAB PO (07:44)
[2018-12-22 08:14] VITALS: BP 120/84; PULSE 79; RESP 20; TEMP 37.3; O2SAT 97
[2018-12-22 08:29] VITALS: O2SAT 97
--- NOTE | 2018-12-22 11:32 | W.PSYCHCONSU ---
Date of service: 12/22/18 Time of Service: 09:00 History of Present Illness Narrative: Overnight events: no significant events Medications: no changes, took all meds as prescribed last night Labs last 24 hours: none Subjective: Mood: fine once I adjusted to the fact that I had to stay one more night Anxiety: no excessive worrying, but is concerned about her new living situation in [place] and affording it. She names some positive things about moving such as meeting more women her own age at AA and NA meetings. Sleep: fine last night, generally is when she can take her amitriptyline cognition: no confused moments overnight that she is aware of. At baseline she reports being forgetful all her life. She state that as a child she had a lot of trouble with concentration in school. School was otherwise a positive place for her. she also states that she thinks her memory and cognition are affected by her years of drinking. Perceptual disturbances: no hallucinations Again Joann states that the reason for instability on readmission was due to not sleeping the night before. She didn't sleep because she didn't have her amitriptyline to take a bedtime. She also again states that when there was a lapse in her insurance payment in November, she couldn't get refills on her amitriptyline and gabapentin and she wasn't sleeping. The not sleeping and the not taking gabapentin were drivers for her to relapse into drinking which led to altered mental status change at first admission on 12/13/2018. She also wasn't eating. Joann also reports that she wants to get back in touch with her psychiatrist Dr. Yu in [place] who helped her in the early stages of sobriety and who has maintained her prescriptions for amitriptyline and bupropion until the last script which dr. Gay at [facility] filled due to Joann's difficulty with transportation to [place]. I spoke with Joann Avila's son regarding his concerns expressed yesterday about his mother's safety at home. He stated that today she seemed more with it and he is comfortable with her being at home alone during the day. He is concerned that she is nodding off after her suboxone dose in the mornings, and thinks it is too high and should be weaned. He will make sure that she has amitriptyline and gabapentin to take tonight at home. Nursing reports: no events overnight, no observed episodes of confusion REVIEW OF SYSTEMS: Constitutional: feels well Musculoskeletal/neuro: she has numbness and loss of strength in right lower extremity due to injury Psych: see above MENTAL STATUS EXAM: Constitutional: appears healthy, stated age, appropriate dress, grooming, hygiene. Attitude: cooperative Psychomotor: no retardation or agitation Speech: non-pressured, normal volume and prosody. No articulation problems noted. Associations: no looseness Thought process: linear, logical, goal directed, at times loses track of thought in an inattentive way and is aware of it. Thought content without psychosis, delusions, obsessions No suicidal or homicidal ideations Hallucinations denied Mood: fine Affect: full, euthymic, calm Attention/Concentration: a bit poor but appears at baseline Judgment/insight: poor-fair Oriented x 4 Language appropriate to age and education Fund of knowledge appropriate to age and education Memory intact to recent and remote events Other cognitive testing: none Assessment and Plan (1) Altered mental status: Current visit: No Status: Acute Joann Grant is a 58 year old female with past psychiatric history of alcohol and opiate abuse with recent relapse on alcohol prior to last admission, and currently treated with suboxone through [facility], and anxiety who was admitted one day after discharge from last hospitalization for confusion and altered mental status. A very thorough medical work up was done on last 5 day admission to find an underlying etiology for delirium, including a neurological consultation. No findings of dementia, neurologic, infectious, neoplastic or vascular etiology came to light. Discharge followed spontaneous clearing of confusion. I now suspect that the patient is at least partially right in her reasoning for these events: lack of sleep due to not having amitriptyline, and in addition, I wonder if she were experiencing cognitive effects of withdrawal from amitriptyline which she takes at a high dose nightly. Today patient is oriented, cognitively clear, and appears at baseline which is a bit inattentive and forgetful. She demonstrated ability to correctly repeat by memory the bus schedule and think about her discharge time accordingly. Austin reports that she can't take the bus home because she locked her keys in the apartment and he will pick her up at 4pm after work. He knows to make sure that she takes her medications at night. I have communicated with Care Management to be sure that she has prescriptions filled upon discharge. recommendations: - ready for discharge from mental health standpoint - make sure she has all her medications filled and available upon discharge - follow up with Dr. uY in [place] and with her PCP for ongoing medication management. Safety: she is at increased risk for unintentional harm to self if she relapses on alcohol or if she doesn't take her medications (a trigger for drinking), however, currently she is at baseline and at low risk for unintentional harm to herself. I verbally discussed my impression and recommendations with Jeanne in Care Management and with the hospitalist team. [facility] Medical History Alcohol abuse Anxiety and depression Chronic pain Shoulder s/p fx's COPD (chronic obstructive pulmonary disease) GERD (gastroesophageal reflux disease) Hyperlipidemia Hypertension Opioid dependence on agonist therapy (Acute) Surgical History Debridement, Soft Tissue (06/10/15) [facility] Dr De Guzman: debridment and washout of multiple right thigh lacerations with complex closure flap coverage (11/07/17) bipedicled fasciocutaneous advancement flap coverage of left lower extremtiy wound, STSG and wound vac placement. [facility] plasti surg. 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 pt is confused at the moment. But prior H&P have documented heavy alcohol use and occasional marijiuana use Household members: children What is your relationship status?: Panel score (0-1 are the most socially isolated patients): 0 Do you feel safe at home: Yes Do you feel safe in your relationship?: Yes Results Last Vital Signs Temp 37.3 C 12/22/18 08:14 Pulse 79 12/22/18 08:14 Resp 20 12/22/18 08:14 BP 120/84 12/22/18 08:14 Pulse Ox 97 12/22/18 08:29 Labs : 12/17/18 09:15 12/17/18 09:15
[2018-12-22 15:40] VITALS: BP 105/65; PULSE 88; RESP 18; TEMP 37; O2SAT 98
--- NOTE | 2018-12-22 17:05 | PDOC.CMDIS ---
- If Service Date Differs Date of service: 12/22/18 Time of Service: 17:05 LACE Index Scoring Tool - Questions: Length of Stay (in days): 4 - 6 Acuity (Admit via E.D.?): Yes Comorbidities: Chronic Pulmonary Disease E.D. Visits: 6 - Answers: Total Score: 13 Risk of Readmission: High Risk Care Management Discharge Reason for Hospitalization: Altered mental status Discharge Plan: Bobbi will be discharged home and transport via private vehicle with her son Austin. She will follow up with her PCP and [facility] plan of care. CM coordinated a resumption of her RCT services that she requires for daily transport back and forth to [facility]. Patient/Family Education Needs: Discharge plan, limitations, follow up plan, Ask Me Three.
--- NOTE | 2018-12-22 17:53 | DSE_ITS ---
Date of service: 12/22/18 Time of Service: 17:53 DS: Diagnosis Discharge Diagnosis (1) Altered mental status: Status: Acute Asessment and Plan: Patient presented with acute altered mental status which gradually resolved with resumption of her normal outpatient meds. At this point it appears that the abrupt cessation of amitriptyline and gabapentin led to her altered mental status. The disruption of her medication was due to loss of insurance. (2) Opioid dependence on agonist therapy: Status: Acute Asessment and Plan: Continues on Suboxone therapy for history of opiate abuse. (3) Encephalopathy: Status: Acute Asessment and Plan: Encephalopathy secondary to abrupt withdrawal from psychotropic medications. LP, head CT, metabolic work-up negative. (4) Discharge planning issues: Status: Acute Asessment and Plan: Discharge to home with further follow-up with mental health and her primary care. Care management worked with her to be sure her insurance was not interrupted so that she would have a continuous supply of her medications. Discharge Plan Disposition Patient Disposition: HOME Condition: Good Discharge Details Chief Complaint: AMS/LOC Clinical Impression: Encephalopathy chronic Reason For Visit: ALTERED MENTAL STATUS Admit Date/Time: 12/17/18 11:42 Admit Provider: Skip Mauro Attending Provider: Skip Mauro Primary Care Provider: Jumana Gay ED Provider: Phil Meyer Hospital Course Hospital Course: This is a 58-year-old woman who was admitted with altered mental status. She had been admitted 12/13/2018 with altered mental status and was discharged 12/17/18 in the custody of her son. She was then readmitted 12/17/2018 due to inability to care for herself at home. She was felt to be not safe including leaving the stove on at home and at risk for starting a fire. Patient states that she was unable to crab picker her amitriptyline and gabapentin because of a lapse in her insurance. She apparently went without her medications for a few days and there is concerned that this may have led to her mental status change. Once back on her medications her mental status improved. She had a complete work-up for encephalopathy including LP, head CT, metabolic work-up. All of this was negative. The discharge plan is for her son to watch over her carefully. All efforts are made to try to prevent interruptions in her medications. Their overall plan is to move to [place]. Home Meds and New Rx's Prescriptions: Continued Narcan 4 MG spray,non-aerosol 4 mg NS PRN Qty: 2 RF: 2 acetaminophen [Mapap Extra Strength] 500 MG tablet 500 mg PO Q4H PRN PRNRF: 0 gabapentin 300 MG capsule 600 mg PO TID RF: 0 albuterol sulfate 90 mcg/actuation HFA aerosol inhaler 1 puff IH Q6H PRN (Reason: shortness of breath or wheezing) Qty: 6.7 RF: 0 omeprazole 40 mg Capsule,Delayed Release(Dr/Ec) 40 mg PO DAILY RF: 0 cyanocobalamin (vitamin B-12) 500 mcg Tablet 500 mcg PO DAILY RF: 0 ferrous sulfate 325 mg (65 mg iron) Tablet 325 mg PO DAILY RF: 0 amitriptyline 100 mg Tablet 200 mg PO HS RF: 0 folic acid 0.8 mg Capsule 0.4 mg PO DAILY RF: 0 Symbicort 160-4.5 mcg/actuation Hfa Aerosol Inhaler 2 puff INHALATION DAILY RF: 0 buprenorphine-naloxone [Suboxone] 12-3 mg Film 1 film sublingual DAILY RF: 0 thiamine HCl (vitamin B1) 100 mg tablet 100 mg PO DAILY Qty: 34 RF: 0 Discharge Instructions Instructions: Acute Delirium (DC), Encephalopathy (GEN) Stand Alone Forms: Nursing Discharge Form Referrals: Jumana Gay [Primary Care Provider] - 01/04/19 12:00 pm Activity:: Activity as Tolerated Equipment/Supplies:: No Equipment Needed Diet:: As Tolerated Discharge Orders Discharge Orders: Discharge Order (Routine); Ordered 12/22/18 Ordered By: Trent Tan Discharge Data Discharge Date/Time-TO BE ENTERED AT DEPARTURE: 12/22/18 17:05 DS: Summary Status at Discharge Cognitive/behavioral status at discharge: Patient presented with acute mental status change that has since resolved. She is now much clearer and her thought processes. Presumed to be returned to baseline. Functional status at discharge: independent ambulation Overall status at discharge: patient is back to baseline Time Spent with Patient Greater than 30 minutes Exam Narrative Exam Narrative: Exam at the time of discharge she was sitting up on the side of the bed eating a muffin. She interacted well with me without evidence of disruption of her thought process. Speech was clear. She had no obvious physical concerns or complaints. Breathing was nonlabored. Neurologically she was moving all extremities without any apparent decrement of function. She appeared to be back to baseline. DS: Data Vitals/I&O Vitals and I&O: Vital Signs Temperature 37.0 C 12/22/18 15:40 Temperature Source Tympanic 12/22/18 15:40 Pulse 88 12/22/18 15:40 Pulse Rhythm Regular 12/22/18 08:29 Respiratory Rate 18 12/22/18 15:40 Respiratory Effort Non-Labored 12/22/18 08:29 Respiratory Depth Normal 12/22/18 08:29 Respiratory Pattern Normal 12/22/18 08:29 Blood Pressure 105/65 12/22/18 15:40 Blood Pressure Position Sitting 12/17/18 08:42 Pulse Oximetry 98 12/22/18 15:40 Oxygen Delivery Method Room Air 12/22/18 15:40 Oxygen Flow Rate 0 12/22/18 15:40 Pain Level 2 12/22/18 08:14 Intake & Output 12/21/18 12/22/18 12/22/18 23:59 11:59 23:59 Intake Total 960 / 2300 1510 / 2780 1270 / 2780 Output Total 200 / 300 250 / 250 Balance 760 / 2000 1510 / 2530 1020 / 2530 Intake: Oral 960 / 2300 1510 / 2780 1270 / 2780 Output: Urine 200 / 300 250 / 250 Other: Urine Color Pale Yellow Urine Appearance Clear Clear Urine Odor Normal Normal Comment Pt voiding ad connor in toilet. No hat; no measurement at pt request. Pt denies sx. Pt voiding ad connor in toilet. Denies sx. Voiding Methods Toilet Toilet [facility] Medical History Alcohol abuse Anxiety and depression Chronic pain Shoulder s/p fx's COPD (chronic obstructive pulmonary disease) GERD (gastroesophageal reflux disease) Hyperlipidemia Hypertension Opioid dependence on agonist therapy (Acute) Surgical History Debridement, Soft Tissue (06/10/15) [facility] Dr De Guzman: debridment and washout of multiple right thigh lacerations with complex closure flap coverage (11/07/17) bipedicled fasciocutaneous advancement flap coverage of left lower extremtiy wound, STSG and wound vac placement. [facility] plasti surg. 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 pt is confused at the moment. But prior H&P have documented heavy alcohol use and occasional marijiuana use Household members: children What is your relationship status?: Panel score (0-1 are the most socially isolated patients): 0 Do you feel safe at home: Yes Do you feel safe in your relationship?: Yes
== END 2018-12-22 17:05 | disposition home or self-care (01) | DRG 71 ==
LOC: ER 12:31 → MS 12:37
PROVIDERS: Admitting Provider Internal Medicine; Emergency Provider Student in an Organized Health Care Education/Training Program; PCP Family Medicine; Visit Provider Family Medicine
DX: G93.49 Other encephalopathy (principal); F11.20 Opioid dependence, uncomplicated; T42.6X6A Underdosing of other antiepileptic and sedative-hypnotic drugs, initial encounter; T43.016A Underdosing of tricyclic antidepressants, initial encounter; Z91.120 Patient's intentional underdosing of medication regimen due to financial hardship; R91.1 Solitary pulmonary nodule; F10.10 Alcohol abuse, uncomplicated; J44.9 Chronic obstructive pulmonary disease, unspecified; I10 Essential (primary) hypertension; I25.10 Atherosclerotic heart disease of native coronary artery without angina pectoris
CPT/HCPCS: 36415; 80053; 80307; 94640; 99239; 99254; 99255; 99285; 99305; 99309; 80320; 80329; 81003; 81015; 84443; 85025; 99284

== ENCOUNTER 2019-01-12 06:15 | Emergency (ER) | payer OTHER, SELFPAY ==
[2019-01-12 06:19] VITALS: BP 110/67; PULSE 83; RESP 16; TEMP 37.1; O2SAT 94
--- NOTE | 2019-01-12 06:26 | ED.GENADUL_ITS ---
Discharge Plan Disposition Patient Disposition: HOME Condition: Stable Discharge Details Chief Complaint: Orthopedic Clinical Impression: Tibia fracture, History of lower leg fracture, Chronic wound of extremity Primary Care Provider: Jumana Gay ED Provider: Princess Chavez Home Meds and New Rx's Prescriptions: Continued Narcan 4 MG spray,non-aerosol 4 mg NS PRN Qty: 2 RF: 2 acetaminophen [Mapap Extra Strength] 500 MG tablet 500 mg PO Q4H PRN PRNRF: 0 gabapentin 300 MG capsule 600 mg PO TID RF: 0 albuterol sulfate 90 mcg/actuation HFA aerosol inhaler 1 puff IH Q6H PRN (Reason: shortness of breath or wheezing) Qty: 6.7 RF: 0 omeprazole 40 mg Capsule,Delayed Release(Dr/Ec) 40 mg PO DAILY RF: 0 cyanocobalamin (vitamin B-12) 500 mcg Tablet 500 mcg PO DAILY RF: 0 ferrous sulfate 325 mg (65 mg iron) Tablet 325 mg PO DAILY RF: 0 amitriptyline 100 mg Tablet 200 mg PO HS RF: 0 folic acid 0.8 mg Capsule 0.4 mg PO DAILY RF: 0 Symbicort 160-4.5 mcg/actuation Hfa Aerosol Inhaler 2 puff INHALATION DAILY RF: 0 buprenorphine-naloxone [Suboxone] 12-3 mg Film 1 film sublingual DAILY RF: 0 thiamine HCl (vitamin B1) 100 mg tablet 100 mg PO DAILY Qty: 34 RF: 0 Discharge Instructions Instructions: Leg Fracture (ED) Additional Instructions: Rest, ice, elevate your left leg as much as possible. Alternate tylenol and motrin as needed and directed for pain. No weightbearing until cleared by orthopedics. Follow-up with Dr. Calvillo in the office as directed. Return to the emergency department if you develop any worsening or new concerning symptoms such as fever, increased pain, numbness, weakness or skin color changes. Referrals: Ger Calvillo MD [ [facility] STAFF PHYSICIAN] - Discharge Data Discharge Date/Time-TO BE ENTERED AT DEPARTURE: 01/12/19 10:07 Discharge Physician: Princess Chavez Medical Decision Making <Sarwat Dawson MD - Last Filed: 01/13/19 20:26> Patient presenting by EMS status post fall down some stairs. She has no obvious injury. She denies striking her head or loss of consciousness. She denies neck pain. She is awake and alert with a GCS of 15. EMS gave her her acetaminophen and ibuprofen from home as she was requesting pain medication. She has a history of both alcohol and opiate abuse. She is currently on Suboxone. Does not appear intoxicated currently. Ice applied to left lower extremity. X-rays of the LS-spine and left tib-fib will be obtained. LS spine films are negative for acute injury. Tib-fib shows an acute oblique fracture of the distal tibia shaft above what appears to be chronic changes, almost moth eaten appearance, of the distal bone from previous injury. Patient had hardware removed because of infection. She has skin grafting over this area. Her wrap is removed. There is slight abrasion over the skin graft site that is old and chronic not new. Case discussed with Dr. Calvillo who actually knows the patient. 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 She has had bone removal and this likely is a fracture related to previous infection. Recommends closed treatment with posterior splint and nonweightbearing status. Patient will be signed over to my colleague, Dr. Chavez, will place patient in the splint and arrange for discharge. <Princess Chavez, DO - Last Filed: 01/12/19 19:16> 0800 -- 58yo F w/ h/o L distal tib/fib fracture with ORIF complicated by infected wound dehiscence with subsequent removal of hardware from left tibia with extensive irrigation and debridement who presents with L lower leg pain s/p fall this morning. She states she had fallen down 10 steps onto her bottom. She denies directly hitting her left leg or head. Lumbar spine x-rays negative for acute findings. Tib-fib x-ray notes acute oblique fracture of distal tibia above the previous fracture with chronic bony changes consistent with previous hardware and infection. Dr. Dawson reviewed the x-rays with Dr. Calivllo who would like a posterior splint, crutches and nonweightbearing. Her chronic left leg wound does not appear acutely infected. This was covered with a nonadherent dressing and Kerlix. A posterior splint was placed and patient was given crutches. Patient had not yet received her Suboxone from the [facility] and we called to confirm and she receives 16 mg SL suboxone daily. She requested to be given her dose here so she does not have to climb steps at [facility] and her dose of suboxone was given. She was transported home by [facility] with plan to f/u with Dr. Calvillo in the office. She was advised to return here with any worsening or new concerning symptoms. HPI <Sarwat Dawson MD - Last Filed: 01/13/19 20:26> General Mode of arrival: EMS . Date/Time Provider Initiated Documentation: 01/12/19 06:23 . Limitations to Documentation: no limitations . Information obtained by: patient, RN notes reviewed and old records reviewed . HPI Narrative: Patient arrives complaining of left lower extremity pain and some lower back pain status post falling down some stairs. She reports that she misjudged and slipped on the staircase. She went down the stairs on her buttocks. She denies striking her head. She denies loss of consciousness. She denies neck pain. She denies upper back pain or chest pain. She has no difficulty breathing. She has no abdominal pain. She reports pain in the left mid mccray area. She reports inability to ambulate because of pain in her leg. She also has some lower back pain from striking the stairs. Related Data Home Medications Medication Instructions Recorded Confirmed Narcan 4 mg NS PRN #2 spray 10/10/16 01/12/19 acetaminophen [Mapap Extra 500 mg PO Q4H PRN PRN tab 07/17/17 01/12/19 Strength] albuterol sulfate 1 puff IH Q6H PRN #6.7 gm 09/23/18 01/12/19 gabapentin 600 mg PO TID 09/23/18 01/12/19 Symbicort 2 puff INHALATION DAILY 12/13/18 01/12/19 amitriptyline 200 mg PO HS 12/13/18 01/12/19 buprenorphine-naloxone [Suboxone] 1 film SUBLINGUAL DAILY 12/13/18 01/12/19 cyanocobalamin (vitamin B-12) 500 mcg PO DAILY 12/13/18 01/12/19 ferrous sulfate 325 mg PO DAILY 12/13/18 01/12/19 folic acid 0.4 mg PO DAILY 12/13/18 01/12/19 omeprazole 40 mg PO DAILY 12/13/18 01/12/19 thiamine HCl (vitamin B1) 100 mg PO DAILY #34 tab 12/16/18 01/12/19 Previous Rx's Medication Instructions Recorded acetaminophen [Mapap Extra 500 mg PO Q4H PRN PRN tab 07/17/17 Strength] albuterol sulfate 1 puff IH Q6H PRN #6.7 gm 09/23/18 thiamine HCl (vitamin B1) 100 mg PO DAILY #34 tab 12/16/18 Allergies Allergy/AdvReac Type Severity Reaction Status Date / Time latex Allergy Intermediate burning Unverified 01/12/19 06:24 Penicillins Allergy Intermediate Hives Unverified 01/12/19 06:24 General Stated Complaint: Orthopedic JUAN DANIEL: 3 Review of Systems <Sarwat Dawson MD - Last Filed: 01/13/19 20:26> Review of Systems Narrative: As documented in HPI otherwise negative as below. Const: no fever, chills, weakness Resp: no cough, SOB, pleuritic pain CV: no CP, diaphoresis, edema, syncope GI: no abdominal pain, nausea, vomiting, diarrhea Neuro: no headache, focal weakness, confusion PFSH <Sarwat Dawson MD - Last Filed: 01/13/19 20:26> Medical History Alcohol abuse Anxiety and depression Chronic pain Shoulder s/p fx's COPD (chronic obstructive pulmonary disease) GERD (gastroesophageal reflux disease) Hyperlipidemia Hypertension Opioid dependence on agonist therapy (Acute) Surgical History Debridement, Soft Tissue (06/10/15) [facility] Dr De Guzman: debridment and washout of multiple right thigh lacerations with complex closure flap coverage (11/07/17) bipedicled fasciocutaneous advancement flap coverage of left lower extremtiy wound, STSG and wound vac placement. [facility] plasti surg. 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 pt is confused at the moment. But prior H&P have documented heavy alcohol use and occasional marijiuana use Household members: children What is your relationship status?: Panel score (0-1 are the most socially isolated patients): 0 Do you feel safe at home: Yes Do you feel safe in your relationship?: Yes Exam <Sarwat Dawson MD - Last Filed: 01/13/19 20:26> Narrative Exam Narrative: Vitals: Afebrile. Normal vitals. Pulse ox 94% on RA (smoker and COPD) Const: WDWN female in NAD. HEENT: NC/AT. Normal facial exam.. Eyes: PERRL and EOMI. Neck: Supple. Trachea midline. No midline c-spine tenderness. Normal ROM. Lungs: Normal respiratory effort. Lungs with few scattered wheezes. No chest wall tenderness. Cor: RRR without murmur/gallop. Good peripheral pulses. GI: Soft. NT/ND. No guarding or rebound. Back: Minimal LS tenderness. Neuro: A+O x 3. GCS 15. CN grossly in tact. Good strength. Reports subjective decreased sensation in feet chronic. Ext: No C/C/E. No deformity. Complains of pain/tenderness mid left mccray area. NVI distal (though chronic numbness of foot). Skin: No lacerations, abrasions or bruising noted on body. Wrap on distal LLE for old chronic wound. Course <Sarwat Dawson MD - Last Filed: 01/13/19 20:26> Vital Signs Vital signs: Vital Signs Temperature 98.8 F 01/12/19 06:19 Pulse 83 01/12/19 06:19 Respiratory Rate 16 01/12/19 06:19 Blood Pressure 110/67 01/12/19 06:19 Pulse Oximetry 94 L 01/12/19 06:19 Temperature 98.8 F 01/12/19 06:19 Temperature Source Skin 01/12/19 06:19 Pulse 83 01/12/19 06:19 Respiratory Rate 16 01/12/19 06:19 Blood Pressure 110/67 01/12/19 06:19 Blood Pressure Position Sitting 01/12/19 06:19 Pulse Oximetry 94 L 01/12/19 06:19 Oxygen Delivery Method Room Air 10/01/19 06:19 Oxygen Flow Rate 0 01/12/19 06:19 Pain Level 8 01/12/19 06:19 <Princess Chavez DO - Last Filed: 01/12/19 19:16> Orthopedic Splinting/Casting Injury #1: Side: left Lower Extremity Injury Location: lower leg Lower Extremity Immobilizer: posterior splint Other Orthopedic Equipment: crutches Sign Out <Sarwat Dawson MD - Last Filed: 01/13/19 20:26> Sign Out Data: Sign Out Comment: Signed out to Dr. Chavez for splinting and discharge. Last updated by Sarwat Dawson MD at 01/12/19 08:09
--- NOTE | 2019-01-12 06:34 | DI.RAD_ITS ---
EXAM: XR TIB/FIB LT INDICATION: fall. COMPARISON: XR TIBIA FIBULA LEFT (GENERIC) from 08/15/2017 LEFT FEMUR from 08/29/2017 XR FEMUR LT from 09/23/2018 TECHNIQUE: 2D digital imaging was performed. FINDINGS: There are again seen old healed fractures involving the distal left tibia and fibula. There is defor mity of the proximal left fibula which may represent an old healed fracture deformity. There is an acute nondisplaced oblique fracture at the junction of the middle and distal thirds of th e left tibia. The distal end of an intramedullary mary is seen in the distal femur. The soft tissues are unremarkable. IMPRESSION: Acute oblique nondisplaced fracture at the junction of the middle and distal thirds of the left tibia .
--- NOTE | 2019-01-12 07:00 | DI.RAD_ITS ---
EXAM: XR LUMBAR SPINE AP, LAT INDICATION: fall. COMPARISON: No exams were available for comparison TECHNIQUE: 2D digital imaging was performed. FINDINGS: No acute fracture or subluxation is seen in the lumbar spine. At L4-L5 there is disc space narrowing and subchondral sclerosis. Postsurgical changes are seen in the left hip. There is surgical clips seen overlying the right iliac bone. IMPRESSION: No acute fracture or subluxation in the lumbar spine.
--- NOTE | 2019-01-12 07:27 | DI.VRAD_ITS ---
PROCEDURE INFORMATION: Exam: XR Lumbosacral Spine, 2 or 3 Views Exam date and time: 01/12/2019 6:35 AM Clinical history: 58 years old, female; Injury or trauma; Initial encounter; Blunt trauma (contusions or hematomas); Injury date: 01/12/19; Injury details: Fall, back pain TECHNIQUE: Imaging protocol: XR of the lumbosacral spine, 2 or 3 views. COMPARISON: No relevant prior studies available. FINDINGS: Vertebrae: There is narrowing of the intervertebral disc space at L4-5 secondary to degenerative disease. Other bones/joints: C6 intramedullary mary is seen in the proximal left femur. Intraperitoneal space: Surgical clips are noted over the left upper quadrant of the abdomen. Surgical clip is seen over the right lower quadrant of the abdomen. Soft tissues: Normal. Other findings: Arteriosclerotic changes are identified. IMPRESSION: 1. No acute fracture. 2. Degenerative disc disease at L4-5. 3. Intramedullary mary in the proximal left femur. Dictated and Authenticated by: Aman Carranza MD. Ordering:NORA Fam MD
--- NOTE | 2019-01-12 07:29 | DI.VRAD_ITS ---
PROCEDURE INFORMATION: Exam: XR Left Tibia and Fibula Exam date and time: 01/12/2019 7:10 AM Clinical history: 58 years old, female; Injury or trauma; Initial encounter; Blunt trauma; Left; Injury date: 01/12/19; Injury details: Fall, lower leg pain, has had three surgeries on this leg prior, prior injuries; Prior surgery; Surgery date: 6+ months; Surgery type: Surgery due to FX TECHNIQUE: Imaging protocol: XR Left tibia and fibula. Views: 2 views. COMPARISON: CR XR TIBIA FIBULA LEFT (GENERIC) 08/15/2017 3:24 PM FINDINGS: Bones/joints: Intramedullary mary is seen in the distal femur. There is alteration in the contour of the proximal left fibula consistent with old healed fracture deformity. There is an old fracture deformity of the distal left fibula. Minimal periosteal reaction is seen along the tibial shaft. There is an old healed fracture deformity of the distal tibia, however, there is an additional acute oblique fracture of the distal tibial shaft. Soft tissues: Normal. IMPRESSION: 1. Acute oblique fracture of the distal tibial shaft. 2. Other old fractures, as described above. Dictated and Authenticated by: Aman Carranza MD. Ordering:NORA Fam MD
--- NOTE | 2019-01-12 07:35 | NUR.NOTE ---
at bedside reviewing vrad results with pt Nursing Note:
[2019-01-12] MEDS: Buprenorphine/Naloxone 8 mg/2 mg FILM 2 EACH SL (08:59)
--- NOTE | 2019-01-12 09:05 | NUR.NOTE ---
pt medicated as per mdo Nursing Note:
--- NOTE | 2019-01-12 10:17 | NUR.NOTE ---
pt fitted for ctruches instructed on stable crutch walk able to display crutch walk Nursing Note:
[2019-01-12 10:20] VITALS: BP 121/68; PULSE 87; RESP 14; O2SAT 99
== END 2019-01-12 10:07 | disposition home or self-care (01) ==
PROVIDERS: Emergency Provider Physician Assistant; PCP Family Medicine
DX: S82.235A Nondisplaced oblique fracture of shaft of left tibia, initial encounter for closed fracture (principal); M79.672 Pain in left foot; W10.8XXA Fall (on) (from) other stairs and steps, initial encounter; F11.20 Opioid dependence, uncomplicated; J44.9 Chronic obstructive pulmonary disease, unspecified; I10 Essential (primary) hypertension; F17.210 Nicotine dependence, cigarettes, uncomplicated
CPT/HCPCS: 99284; 72100; 73590

== ENCOUNTER 2019-01-18 14:00 | Outpatient (CLI) | payer OTHER, SELFPAY ==
--- NOTE | 2019-01-18 13:17 | DI.RAD_ITS ---
EXAM: XR TIB/FIB LT INDICATION: f/u L tibia frx. COMPARISON: XR TIB/FIB LT from 01/12/2019 TECHNIQUE: 2D digital imaging was performed. FINDINGS: Two views were obtained and show a previously described fracture of the tibia. There is fibular frac ture proximally which was not visible on the previous exam. No change in alignment in comparison wit h the previous study of 01/12.
== END 2019-01-18 14:20 ==
PROVIDERS: PCP Family Medicine; Referring Provider Family Medicine; Visit Provider Student in an Organized Health Care Education/Training Program
DX: S82.302A Unspecified fracture of lower end of left tibia, initial encounter for closed fracture (principal); S82.832A Other fracture of upper and lower end of left fibula, initial encounter for closed fracture; W10.9XXA Fall (on) (from) unspecified stairs and steps, initial encounter
CPT/HCPCS: 99213; 73590